=== PATIENT | female | born 1935 | race Caucasian/White ===

== ENCOUNTER → 2017-02-23 | Outpatient (CLI) | payer MEDICARE ==
[~2017-02-23] MED LIST: ALPR0.25 PO; AMLO5CAP3 PO; BYST10TA2 PO; CALC600T44 PO; CEPH500C PO; CETI10 PO; CLON0.1T PO; CLOTCRE TOPICAL; ENTO3CAP5 PO; EPIP0.3I IM; EVIS60TA PO; FURO40TA PO; LOSA50TA PO; LOTE40TA PO; MULTTAB67 PO; NORC5TAB PO; PRED10 PO; RANI150T PO; SERT-132 PO; STOOTAB PO; TRAM50TA PO; VALT1TAB PO; VITA10002 PO; VITATAB25 PO
[2017-02-23 11:27] LABS: AUTOMATED NEUTROPHIL # 4.7 TH/MM3 (1.8-7.7); BASOPHIL % 0.3 % (0.0-2.0); EOSINOPHIL # 0.2 TH/MM3 (0-0.4); EOSINOPHIL % 2.9 % (0.0-4.0); HEMATOCRIT 37.5 % (35.0-46.0); HEMO FLAGS DIFF FINAL; LYMPH % 15.6 % (9.0-44.0); MEAN CORPUSCULAR HEMOGLOBIN 32.4 PG (27.0-34.0); MEAN CORPUSCULAR HGB CONC 34.1 % (32.0-36.0); MONO % 7.5 % (0.0-8.0); NEUT % 73.7 % (16.0-70.0); PLATELET COUNT 231 TH/MM3 (150-450); RED BLOOD COUNT 3.95 MIL/MM3 (4.00-5.30); RED CELL DISTRIBUTION WIDTH 12.3 % (11.6-17.2); WHITE BLOOD COUNT 6.4 TH/MM3 (4.0-11.0)
--- NOTE | 2017-02-24 12:07 | EKG ---
Date Performed: 02/23/2017 Time Performed: 11:26:59 PTAGE: 81 years EKG: Sinus rhythm NORMAL ECG PREVIOUS TRACING : 05/21/2014 05.54 Compared to prior tracing no significant change DOCTOR: Charlie Mansfield Interpretating Date/Time 02/24/2017 12:04:58
== END ==
LOC: PHPRE 10:21
PROVIDERS: ATTEND Ophthalmology
DX: Z01.812 Encounter for preprocedural laboratory examination (principal); Z01.810 Encounter for preprocedural cardiovascular examination; H26.9 Unspecified cataract; I10 Essential (primary) hypertension
CPT/HCPCS: 85025; 93005

== ENCOUNTER 2017-02-28 08:32 | Emergency (ER) | payer MEDICARE ==
[~2017-02-28] VITALS: Ht 165.1 cm; Wt 61.0 kg
[~2017-02-28 08:32] MED LIST changes: -ALPR0.25 PO; -AMLO5CAP3 PO; -CEPH500C PO; -CLON0.1T PO; -CLOTCRE TOPICAL; -EPIP0.3I IM; -EVIS60TA PO; -FURO40TA PO; -LOTE40TA PO; -NORC5TAB PO; -PRED10 PO; -RANI150T PO; -STOOTAB PO; -TRAM50TA PO; -VALT1TAB PO
[2017-02-28 08:41] VITALS: BP 189/81; PULSE 68; RESP 16; TEMP 98.1; O2SAT 98
[2017-02-28] MEDS ORDERED: ALPR0.25 PO (08:51)
[2017-02-28] MEDS ORDERED: CLOTCRE TOPICAL (08:51)
[2017-02-28] MEDS ORDERED: PRED10 PO (08:51)
--- NOTE | 2017-02-28 08:53 | PD ---
HPI Chief Complaint: Pain: Acute or Chronic Time Seen by Provider: 08:36 Travel History International Travel<30 days: No Contact w/Intl Traveler<30days: No Traveled to known affect area: No History of Present Illness HPI The patient is a 81-year-old female who presents to the emergency department for right upper extremity pain. The pain starts over the volar aspect of the right wrist on the ulnar aspect, radiates into the fifth digit on the volar aspect as well as radiates to the medial aspect of the right elbow and occasionally the right axilla. The pain is elicited by certain movements, however, can occur at rest. She denies any significant weakness to the right upper extremity and denies any associated numbness or tingling. Symptoms are moderate, exacerbated by certain movements and positions, and there are no current alleviating factors. The patient does state she had an outpatient x- ray yesterday of the right wrist, does not know the results. She states the x- ray was performed at radiology [facility] in [place], [place]. She has an appointment next Thursday with a hand surgeon, Dr. Antonio. The patient was placed on prednisone 10 mg daily for 5 days by her primary physician. 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) Musculoskeletal: Yes (BACK PROBLEMS,HERNIATED DISC) Reproductive: Yes (ENDOMETRIOSIS, CYST IN BREAST) Respiratory: No Integumentary: Yes (HIVES) Immunizations Current: Yes (FLU SHOT-2007) Thyroid Disease: No Influenza Vaccination: No Menopausal: Yes Past Surgical History Abdominal Surgery: Yes Appendectomy: Yes Cholecystectomy: Yes Ear Surgery: No Endocrine Surgery: No Eye Surgery: No Genitourinary Surgery: No Gynecologic Surgery: Yes (,D&C-1976,L SALPINGO OOPHORECTOMY) Hysterectomy: No Neurologic Surgery: No Oral Surgery: No Other Surgery: Yes (LYSIS OF ADHESIONS.) Social History Alcohol Use: Yes (0-1/DAY) Tobacco Use: No (QUIT IN 1969) Substance Use: No Allergies-Medications (Allergen,Severity, Reaction): Coded Allergies: Benadryl (Verified Allergy, Severe, Hives, 02/28/17) Claritin (Verified Allergy, Severe, Hives, 02/28/17) Singulair (Verified Allergy, Severe, Hives, 02/28/17) Lashell (Verified Allergy, Intermediate, HIVES, 02/28/17) Uncoded Allergies: NO CT SCANS (Adverse Reaction, Mild, 05/27/12) Reported Meds & Prescriptions Reported Meds & Active Scripts Active Reported Prednisone 10 Mg Tab 10 Mg PO DAILY Clotrimazole-Betamethasone Topical (Betamethasone/Clotrimazole) 1-0.05% Cream 1 Applic TOPICAL BID Alprazolam 0.25 Mg Tab 0.25 Mg PO Q6H PRN Losartan (Losartan Potassium) 50 Mg Tab 50 Mg PO BID Entocort EC (Budesonide) 3 Mg Capdr 6 Mg PO DAILY Bystolic (Nebivolol) 10 Mg Tab 20 Mg PO DAILY Sertraline (Sertraline HCl) 50 Mg Tab 50 Mg PO DAILY Review of Systems Except as stated in HPI: all other systems reviewed are Neg General / Constitutional: No: Fever Gastrointestinal: No: Nausea Musculoskeletal: Positive: Pain, No: Edema Skin: No Rash Neurologic: No: Paresthesia, Sensory Disturbance Physical Exam Narrative GENERAL: Awake, alert, pleasant 81-year-old female who appears her stated age and is in no acute respiratory distress. SKIN: Focused skin assessment warm/dry. No stigmata of shingles on the right upper extremity. HEAD: Atraumatic. Normocephalic. EYES: No injection or drainage. NECK: Trachea midline. No JVD. MUSCULOSKELETAL: No obvious deformities. No clubbing. No cyanosis. No edema. Patient is able to fully abduct and extend the right upper extremity. Patient is able fully flex and extend the right elbow as well as supinate and pronate the right forearm. The patient is able fully flex and extend the right wrist. Intrinsic hand muscles are intact. Positive right radial pulse. Pain is elicited by palpation over the medial epicondyle, just distal to the upper condyle. NEUROLOGICAL: Awake and alert. No obvious cranial nerve deficits. Motor grossly within normal limits. Normal speech. Sensation is intact to the radial , median, and ulnar distribution of the right hand. PSYCHIATRIC: Appropriate mood and affect; insight and judgment normal. Data Data Last Documented VS Vital Signs Date Time Temp Pulse Resp B/P Pulse Ox O2 Delivery O2 Flow Rate FiO2 02/28/17 08:41 98.1 68 16 189/81 98 MDM Medical Decision Making Medical Screen Exam Complete: Yes Emergency Medical Condition: Yes Medical Record Reviewed: Yes Differential Diagnosis Differential diagnosis includes ulnar neuropathy, median nerve neuropathy, ulnar nerve entrapment, shingles, fracture, dislocation, contusion. Narrative Course The patient's physical examination is consistent with ulnar nerve neuropathy and possible entrapment at the elbow and/or wrist. The patient is a 31 been started on prednisone, I will provide Morton for pain management. I reviewed the patient's x-ray for right wrist that was performed at radiology [facility], it was unremarkable. The patient has an appointment next Thursday with a hand surgeon, Dr. Antonio. She is advised to apply ice and/or heat to the affected areas as needed, continue prednisone, and take Morton as directed. Diagnosis Primary Impression: Ulnar nerve neuropathy Qualified Code: G56.21 - Ulnar neuropathy of right upper extremity Patient Instructions: General Instructions Additional Instructions: Follow-up with a hand surgeon as scheduled. Continue prednisone as previously directed. Morton as needed for pain. Ice and/or heat to the affected areas. Return if symptoms worsen or progress. Med/Other Pt SpecificInfo: Prescription(s) given Scripts Hydrocodone-Acetaminophen (Morton)5-325 mg Tab1 Tab PO Q6H PRN (PAIN) #20 TAB Ref 0 Prov:Imer Florez MD 02/28/17 Disposition: 01 DISCHARGE HOME Condition: Stable Imer Florez MD Feb 28, 2017 08:52
[2017-02-28] MEDS ORDERED: NORC5TAB PO (09:08)
[2017-02-28] MEDS ORDERED: ACETAMINOPHEN/HYDROcodone 325 MG/5 MG TAB PO ONE (09:15)
== END 2017-02-28 09:49 | disposition home or self-care (01) ==
LOC: PHED 08:32
DX: G56.21 Lesion of ulnar nerve, right upper limb (principal); H91.8X1 Other specified hearing loss, right ear; H91.92 Unspecified hearing loss, left ear; Z87.39 Personal history of other diseases of the musculoskeletal system and connective tissue; Z86.59 Personal history of other mental and behavioral disorders; Z86.79 Personal history of other diseases of the circulatory system; Z87.19 Personal history of other diseases of the digestive system; Z87.448 Personal history of other diseases of urinary system; Z87.42 Personal history of other diseases of the female genital tract
CPT/HCPCS: 99283

== ENCOUNTER 2017-03-02 13:18 | Emergency (ER) | payer MEDICARE ==
[~2017-03-02] VITALS: Ht 165.1 cm; Wt 61.0 kg
[~2017-03-02 13:18] MED LIST changes: +ALPR0.25 PO; -CALC600T44 PO; -CETI10 PO; +CLOTCRE TOPICAL; -MULTTAB67 PO; +NORC5TAB PO; +PRED10 PO; -VITA10002 PO; -VITATAB25 PO
[2017-03-02 13:23] VITALS: BP 230/93; PULSE 88; RESP 18; TEMP 98.1; O2SAT 94
[2017-03-02 13:40] VITALS: BP 218/100
[2017-03-02] MEDS ORDERED: cloNIDine HCL 0.2 MG TAB PO ONE (14:15)
[2017-03-02] MEDS ORDERED: ONDANSETRON HCL 4 MG/2 ML VIAL IM ONE (14:15)
[2017-03-02] MEDS ORDERED: MORPHINE SULFATE 4 MG/ML INJ IM ONE (14:15)
--- NOTE | 2017-03-02 14:24 | PD ---
HPI Chief Complaint: Pain: Acute or Chronic Time Seen by Provider: 13:56 Travel History International Travel<30 days: No Contact w/Intl Traveler<30days: No Traveled to known affect area: No History of Present Illness HPI The patient was seen and examined in the presence of the nurse. This patient complains of pain in her right wrist. It radiates down into her right fourth and fifth fingers and sometimes up to the right elbow. It does not include the thumb or second or third finger. He was seen here 2 days ago and diagnosed with an ulnar neuropathy. She has an appointment with hand surgeon tomorrow at 1240. Severity is moderate. No alleviating factors. She tried narcotic pain pill without significant relief. Denies muscle weakness or sensory loss but has pain worsened with wrist movement. She is right handed and does a lot of typing. 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, WHITE COAT SYNDROM) Musculoskeletal: Yes (BACK PROBLEMS,HERNIATED DISC) Reproductive: Yes (ENDOMETRIOSIS, CYST IN BREAST) Respiratory: No Integumentary: Yes (HIVES) Immunizations Current: Yes (FLU SHOT-2008) Thyroid Disease: No Tetanus Vaccination: < 5 Years Influenza Vaccination: No Menopausal: Yes Past Surgical History Abdominal Surgery: Yes Appendectomy: Yes Cholecystectomy: Yes Ear Surgery: No Endocrine Surgery: No Eye Surgery: No Genitourinary Surgery: No Gynecologic Surgery: Yes (,D&C-1975,L SALPINGO OOPHORECTOMY) Hysterectomy: No Neurologic Surgery: No Oral Surgery: No Other Surgery: Yes (LYSIS OF ADHESIONS.) Social History Alcohol Use: Yes (0-1/DAY) Tobacco Use: No (QUIT IN 1969) Substance Use: No Allergies-Medications (Allergen,Severity, Reaction): Coded Allergies: Benadryl (Verified Allergy, Severe, Hives, 03/02/17) Claritin (Verified Allergy, Severe, Hives, 03/02/17) Singulair (Verified Allergy, Severe, Hives, 03/02/17) Lashell (Verified Allergy, Intermediate, HIVES, 03/02/17) Uncoded Allergies: NO CT SCANS (Adverse Reaction, Mild, 05/27/12) Reported Meds & Prescriptions Reported Meds & Active Scripts Active [place] (Hydrocodone-Acetaminophen) 5-325 mg Tab 1 Tab PO Q6H PRN Reported Prednisone 10 Mg Tab 10 Mg PO DAILY Clotrimazole-Betamethasone Topical (Betamethasone/Clotrimazole) 1-0.05% Cream 1 Applic TOPICAL BID Alprazolam 0.25 Mg Tab 0.25 Mg PO Q6H PRN Losartan (Losartan Potassium) 50 Mg Tab 50 Mg PO BID Entocort EC (Budesonide) 3 Mg Capdr 6 Mg PO DAILY Bystolic (Nebivolol) 10 Mg Tab 20 Mg PO DAILY Sertraline (Sertraline HCl) 50 Mg Tab 50 Mg PO DAILY Review of Systems General / Constitutional: No: Fever Eyes: No: Visual changes HENT: No: Headaches Cardiovascular: No: Chest Pain or Discomfort Respiratory: No: Shortness of Breath Gastrointestinal: No: Abdominal Pain Genitourinary: No: Dysuria Musculoskeletal: Positive: Pain Skin: No Rash Neurologic: No: Weakness Psychiatric: No: Depression Endocrine: No: Polydipsia Hematologic/Lymphatic: No: Easy Bruising Physical Exam Narrative Psych: Normal mood and affect. Normal insight and judgment. SKIN: Focused skin assessment reveals no rash or ulcers. Skin is warm and dry. Palpation shows no induration or nodules. Right arm: No swelling or redness or warmth. Good range of motion of joints. She has a lot of pain with flexion or extension of the wrist. Data Data Last Documented VS Vital Signs Date Time Temp Pulse Resp B/P Pulse Ox O2 Delivery O2 Flow Rate FiO2 03/02/17 13:58 03/02/17 13:23 98.1 88 18 94 Room Air Orders Ondansetron Inj (Zofran Inj) (03/02/17 14:15) Morphine Inj (Morphine Inj) (03/02/17 14:15) Clonidine (Catapres) (03/02/17 14:15) MDM Medical Decision Making Medical Screen Exam Complete: Yes Emergency Medical Condition: Yes Medical Record Reviewed: Yes Differential Diagnosis Carpal tunnel syndrome, ulnar neuropathy, epicondylitis Narrative Course I have reviewed the patient's electronic medical record. I reviewed her visit from 2 days ago After evaluation of this patient I concur with Dr. Florez's assessment. Seems to have an ulnar neuropathy on the right side. I recommended that she ice and elevate that right arm as well as use the Velcro wrist splint that she has at home and is not wearing now. I'm going to had a few tramadol to her other pain medication to use if needed I'm giving her injection of morphine and Zofran now for symptom relief. She will follow-up with hand surgery tomorrow Diagnosis Primary Impression: Ulnar nerve neuropathy Qualified Code: G56.21 - Ulnar neuropathy of right upper extremity Additional Instructions: Ice and elevate right arm and wear splint The patient was warned about potential sedation for the medications they will receive on prescription. Follow up with hand surgery tomorrow as scheduled Med/Other Pt SpecificInfo: Prescription(s) given Disposition: 01 DISCHARGE HOME Condition: Stable Seth Montes MD Mar 02, 2017 14:24
[2017-03-02 14:35] VITALS: BP 219/93
[2017-03-02] MEDS ORDERED: TRAM50TA PO (15:05)
[2017-03-02 15:12] VITALS: BP 212/103
[2017-03-02] MEDS ORDERED: NIFEdipine 10 MG CAP PO ONE (15:15)
== END 2017-03-02 15:25 | disposition home or self-care (01) ==
LOC: PHED 13:18
DX: G56.21 Lesion of ulnar nerve, right upper limb (principal); I10 Essential (primary) hypertension; H91.93 Unspecified hearing loss, bilateral; Z87.39 Personal history of other diseases of the musculoskeletal system and connective tissue; Z86.59 Personal history of other mental and behavioral disorders; Z86.79 Personal history of other diseases of the circulatory system; Z87.19 Personal history of other diseases of the digestive system; Z87.448 Personal history of other diseases of urinary system
CPT/HCPCS: 96372; 99284; J2270; J2405

== ENCOUNTER 2017-03-06 04:21 | Emergency (ER) | payer MEDICARE ==
[~2017-03-06] VITALS: Ht 165.1 cm; Wt 59.6 kg
[~2017-03-06 04:21] MED LIST changes: +TRAM50TA PO
[2017-03-06 04:28] VITALS: BP_SYST 182; BP_DIAS 22; BP_DIAS 72; PULSE 75; RESP 18; TEMP 97.6; O2SAT 96
[2017-03-06] MEDS ORDERED: VALT1TAB PO (05:08)
[2017-03-06] MEDS ORDERED: CEPH500C PO (05:08)
[2017-03-06] MEDS ORDERED: STOOTAB PO (05:08)
[2017-03-06] MEDS ORDERED: PRED10 PO (05:08)
--- NOTE | 2017-03-06 05:25 | PD ---
HPI Chief Complaint: Skin Problem Time Seen by Provider: 05:13 Travel History International Travel<30 days: No Contact w/Intl Traveler<30days: No Traveled to known affect area: No History of Present Illness HPI 81-year-old female presents to the emergency department by private transportation in the care of her spouse for evaluation of medications recently prescribed for management of right upper extremity pain initially managed as a possible ulnar nerve neuropathy but since Thursday 2 days ago at the director of field sales office was identified to have shingles. Patient has been seen by her primary care regarding her right upper extremity pain she was seen twice in the emergency department on and for complaint of right upper extremity pain and then on Thursday of this week by her hand surgeon who sent her immediately to the director of field sales where she was assessed diagnosed with shingles and a biopsy was performed. Patient has an appointment with her director of field sales this morning at 11 AM. Patient during her management of this right upper extremity pain prior to onset of dermatologic manifestations with vesicular rash had been placed on a five-day course of prednisone 10 mg by her primary care and subsequently placed on hydrocodone to the emergency department and continued on the pain medication was seen by the director of field sales on Thursday and restarted on prednisone 10 mg daily and has had 210 mg doses once on Thursday and once on but not yet on Thursday and has been taking hydrocodone 5/ 325 every 6 hours for pain management as well has has been started on Valtrex and Keflex. Patient has had no fever or chills. Patient states since Thursday and since restarting steroid therapy, prednisone 10 mg, she has noted some intermittent brief visual or auditory hallucinations where she thinks she sees birds or hears birds; patient denies these symptoms at this time. Patient presents at this time concerned that she may be having an adverse reaction to one of her medications. Patient does not report headache, confusion, double vision or loss of vision, change in speech, facial droop, balance disturbance or ataxia, upper or lower extremity numbness, tingling, or weakness; denies fever or chills; no mouth sores or lesions; no chest pain, palpitations, or shortness of breath, also no nausea or vomiting, patient has a history of chronic colitis and typically has some form of diarrhea but since starting hydrocodone has noted some mild constipation and did take Senokot yesterday; no report of dysuria, frequency, urgency, or decreased urine output; and no report of saddle anesthesia. Patient rates her current pain improved at 7/10 in intensity; prior to this visit pain has been reported as 10+ over 10 in intensity. Patient denies any visual disturbance or auditory disturbance at this time. Patient reports that she has had adverse reaction to prednisone in the past but she is not certain what kind of adverse reaction she has had but lists this medication as an allergy or medication she has had an intolerance to reportedly. Patient also has history of idiopathic urticaria and has multiple urticarial reactions to various medications but no urticaria, angioedema, and anaphylaxis to any of her current medications. PFS Past Medical History Narrative Medical Anxiety hypertension and panic attacks paroxysmal atrial tachycardia arthritis right ear deafness colitis chronic kidney disease chronic back pain with herniated disc endometriosis idiopathic urticaria D&C appendectomy salpingo- oophorectomy adhesive lysis no tobacco use no alcohol use Hx Anticoagulant Therapy: No Arthritis: Yes Anxiety: Yes (PANIC ATTACKS - HYPERVENTILATION) Heart Rhythm Problems: Yes (HX PAT) Cancer: No Cardiovascular Problems: Yes (HTN) Chemotherapy: No Cerebrovascular Accident: No Diabetes: No Diminished Hearing: Yes (DEAF IN RT EAR,RINCON IN LT EAR, HEARING AID IN.) Gastrointestinal Disorders: Yes (COLITIS) Glaucoma: No Genitourinary: Yes (KIDNEY DISEASE) Hepatitis: No Hiatal Hernia: No Hypertension: Yes Musculoskeletal: Yes (BACK PROBLEMS,HERNIATED DISC) Reproductive: Yes (ENDOMETRIOSIS, CYST IN BREAST) Respiratory: No Integumentary: Yes (HIVES) Immunizations Current: Yes (FLU SHOT-2007) Thyroid Disease: No Menopausal: Yes Past Surgical History Abdominal Surgery: Yes Appendectomy: Yes Cholecystectomy: Yes Ear Surgery: No Endocrine Surgery: No Eye Surgery: No Genitourinary Surgery: No Gynecologic Surgery: Yes (,D&C-1975,L SALPINGO OOPHORECTOMY) Hysterectomy: No Neurologic Surgery: No Oral Surgery: No Other Surgery: Yes (LYSIS OF ADHESIONS.) Social History Alcohol Use: Yes (0-1/DAY) Tobacco Use: No (QUIT IN 1969) Substance Use: No Allergies-Medications (Allergen,Severity, Reaction): Coded Allergies: Benadryl (Verified Allergy, Severe, Hives, 03/06/17) Claritin (Verified Allergy, Severe, Hives, 03/06/17) Hydroxyzine (Verified Allergy, Severe, 03/06/17) Singulair (Verified Allergy, Severe, Hives, 03/06/17) Lashell (Verified Allergy, Intermediate, HIVES, 03/06/17) Uncoded Allergies: NO CT SCANS (Adverse Reaction, Mild, 05/27/12) Reported Meds & Prescriptions Reported Meds & Active Scripts Active [place] (Hydrocodone-Acetaminophen) 5-325 mg Tab 1 Tab PO Q6H PRN Reported Cephalexin 500 Mg Cap 500 Mg PO TID Stool Softener Laxative 8.6-50 mg (Sennosides-Docusate Sodium) 1 Tab Tab 1 Tab PO DAILY Valtrex (Valacyclovir HCl) 1 Gm Tab 1,000 Mg PO TID Prednisone 10 Mg Tab 10 Mg PO DAILY Clotrimazole-Betamethasone Topical (Betamethasone/Clotrimazole) 1-0.05% Cream 1 Applic TOPICAL BID Alprazolam 0.25 Mg Tab 0.25 Mg PO Q6H PRN Losartan (Losartan Potassium) 50 Mg Tab 50 Mg PO BID Entocort EC (Budesonide) 3 Mg Capdr 6 Mg PO DAILY Bystolic (Nebivolol) 10 Mg Tab 20 Mg PO DAILY Sertraline (Sertraline HCl) 50 Mg Tab 50 Mg PO DAILY Review of Systems Except as stated in HPI: all other systems reviewed are Neg General / Constitutional: No: Fever, Chills Eyes: Positive: Visual changes (intermittent visual hallucinations), No: Diploplia, Blurred Vision, Photophobia HENT: No: Headaches, Vertigo, Lightheadedness, Sore Throat, Congestion, Nosebleed, Other (no mouth ulcerations or stomatitis) Cardiovascular: No: Chest Pain or Discomfort, Palpitations, Diaphoresis, Dyspnea on exertion Respiratory: No: Cough, Shortness of Breath, Wheezing Gastrointestinal: Positive: Constipation, No: Nausea, Vomiting, Diarrhea, Abdominal Pain Genitourinary: No: Decreased Urinary Output Musculoskeletal: Positive: Pain (right upper extremity), No: Myalgias, Arthralgias Skin: Positive Rash, Positive Lesions (shingles right upper extremity) Neurologic: No: Weakness, Dizziness, Syncope, Focal Abnormalities, Coordination Problem, Headache Psychiatric: Positive: Anxiety Hematologic/Lymphatic: No: Easy Bruising Physical Exam Narrative GENERAL: Well-developed well-nourished female in no acute distress no respiratory distress; GCS 15 SKIN: Warm and dry. Vesicular rash to the right upper extremity involving the hand primarily in the ulnar nerve distribution HEAD: Atraumatic. Normocephalic. EYES: Pupils equal and round. No scleral icterus. No injection or drainage. ENT: No nasal bleeding or discharge. Mucous membranes pink and moist. NECK: Trachea midline. No JVD. CARDIOVASCULAR: Regular rate and rhythm. RESPIRATORY: No accessory muscle use. Clear to auscultation. Breath sounds equal bilaterally. GASTROINTESTINAL: Abdomen soft, non-tender, nondistended. Hepatic and splenic margins not palpable. MUSCULOSKELETAL: Extremities without clubbing, cyanosis, or edema. No obvious deformities. NEUROLOGICAL: Awake and alert. No obvious cranial nerve deficits. Motor grossly within normal limits. Five out of 5 muscle strength in the arms and legs. No limb ataxia. No pronator drift. Sensory exam intact. DTRs 2+ and equal bilaterally. Normal speech. PSYCHIATRIC: Appropriate mood and affect; insight and judgment normal. Data Data Last Documented VS Vital Signs Date Time Temp Pulse Resp B/P Pulse Ox O2 Delivery O2 Flow Rate FiO2 03/06/17 04:28 97.6 75 18 182/72 96 MDM Medical Decision Making Medical Screen Exam Complete: Yes Emergency Medical Condition: Yes Medical Record Reviewed: Yes Differential Diagnosis Adverse medication reaction, post/herpetic neuralgia, shingles, uncontrolled hypertension Narrative Course Patient by physical exam remarkable for unilateral vesicular rash of the right upper extremity extending onto the right upper back. Review of multiple medications discussed in detail with patient. No auditory or visual hallucinations in the emergency department. Patient is noted to have elevated blood pressure and administered clonidine. Patient already is scheduled to see her director of field sales 03/06/17 at 11 AM. Patient most likely with adverse medication reaction due to combination of multiple medications. Medications modified slightly as far as dosing and frequency. Patient spouse report understanding of changes and discharge instructions include discussed changes. Patient noted to be hypertensive and given a one-time dose of clonidine 0.1 mg by mouth Diagnosis Primary Impression: Shingles Qualified Code: B02.8 - Herpes zoster with complication Additional Impressions: Adverse drug reaction Qualified Code: T88.7XXA - Adverse drug reaction, initial encounter HTN (hypertension) Qualified Code: I15.9 - Secondary hypertension Referrals: [facility] 1 day Keep scheduled appointment Patient Instructions: General Instructions Additional Instructions: May change hydrocodone 5/325 one by mouth every 6 hours as needed for pain and as tolerated to hydrocodone one half dose of 5/325 (2.5/162.5) by mouth every 4 hours as needed for pain as tolerated Hold AM dose of prednisone 10 mg until dermatology appointment as scheduled; decrease dose to prednisone 5 mg daily x 2 days, then prednisone 2.5 mg daily x 2 days Take as needed clonidine 0.1 mg q12 hours as needed for blood pressure > 160/90 May use MiraLax per package directions as needed for narcotic induced constipation along with increased fluid hydration Continue chronic medications as chronically prescribed by your primary care provider continue Valtrex and Keflex as prescribed by your director of field sales May use zantac 150 twice daily as needed for allergy related symptoms --- itching May use zyrtec 10 mg once daily as needed for allergy related symptoms --- itching Med/Other Pt SpecificInfo: Prescription(s) given, Existing Med Changed Scripts Clonidine 0.1 Mg Tab0.1 Mg PO Q12HR PRN (SBP>160, DBP>90) #4 TAB Ref 0 Prov:Lizzy Graves MD 03/06/17 Disposition: DISCHARGE HOME Condition: Stable Lizzy Graves MD Mar 06, 2017 05:25
[2017-03-06 05:47] VITALS: BP 201/86
[2017-03-06] MEDS ORDERED: CLON0.1T PO (05:55)
[2017-03-06] MEDS ORDERED: cloNIDine HCL 0.1 MG TAB PO ONE (06:00)
== END 2017-03-06 06:17 | disposition home or self-care (01) ==
LOC: PHED 04:21
DX: B02.8 Zoster with other complications (principal); T88.7XXA Unspecified adverse effect of drug or medicament, initial encounter; I15.9 Secondary hypertension, unspecified; R44.1 Visual hallucinations; R44.0 Auditory hallucinations; H91.93 Unspecified hearing loss, bilateral; Z79.899 Other long term (current) drug therapy; Z86.59 Personal history of other mental and behavioral disorders; Z86.79 Personal history of other diseases of the circulatory system; Z87.39 Personal history of other diseases of the musculoskeletal system and connective tissue; Z87.42 Personal history of other diseases of the female genital tract; Z87.2 Personal history of diseases of the skin and subcutaneous tissue; Z87.19 Personal history of other diseases of the digestive system
CPT/HCPCS: 99283

== ENCOUNTER 2017-03-09 03:36 | Emergency (ER) | payer MEDICARE ==
[~2017-03-09] VITALS: Ht 165.1 cm; Wt 58.0 kg
[~2017-03-09 03:36] MED LIST changes: +CEPH500C PO; +CLON0.1T PO; +STOOTAB PO; -TRAM50TA PO; +VALT1TAB PO
[2017-03-09 03:40] VITALS: BP 202/88; PULSE 89; RESP 18; TEMP 97.9; O2SAT 99
[2017-03-09 03:45] VITALS: O2SAT 98
[2017-03-09] MEDS ORDERED: ASPIRIN 81 MG CHEW TAB PO ONE (04:00)
[2017-03-09] MEDS ORDERED: SODIUM CHLORIDE 0.9% FLUSH 10 ML FLUSH IVF PRN (04:00)
[2017-03-09] MEDS ORDERED: cloNIDine HCL 0.2 MG TAB PO ONE (04:00)
--- NOTE | 2017-03-09 04:09 | PD ---
HPI Chief Complaint: Cardiac Complaint Time Seen by Provider: 03:55 Travel History International Travel<30 days: No Contact w/Intl Traveler<30days: No Traveled to known affect area: No History of Present Illness HPI 81-year-old female presents to the emergency department by EMS transportation from home for evaluation of palpitations and hypertension. Patient has history of hypertension and panic attacks. Patient is prescribed by systolic was certain and alprazolam. Were recently patient has been placed on prednisone and Valtrex for diagnosis of shingles. Patient reports the prednisone has been discontinued. Patient did have her shingles diagnosis confirmed by technical communicator and biopsy. Patient states shingles outbreak is much improved. Patient has had multiple medications and multiple adjustments of multiple medications over the past 2 weeks. Patient denies any chest pain or shortness of breath. Patient denies any referred neck jaw back shoulder or left arm pain. Patient continues to have right arm pain associated with component of postherpetic neuralgia. Patient denies any upper extremity or lower extremity numbness tingling or weakness or ataxia of gait. Patient's had no fever or chills. The patient has had no productive cough denies pleuritic pain. Patient denies any palpitations at this time. Patient does have prior history of paroxysmal atrial tachycardia. Patient states that her blood pressure has been poorly controlled over the past 2 weeks and frequently has been quite elevated. Patient does not report any headache thunderclap headache worst headache of her life does not report any change in mentation visual disturbance blurred vision double vision loss of vision or loss of visual james patient does not report any facial weakness and has had no change in her speech. Patient denies any neck pain. Patient's had no balance disturbance. Patient feels well at this time although is aware that her blood pressure is elevated. Patient continues to have 10 over 10 right upper extremity pain consistent with her shingles outbreak; otherwise pain/discomfort is 0/10 in intensity.. PFSH Past Medical History Narrative Medical Anxiety hypertension and panic attacks paroxysmal atrial tachycardia arthritis right ear deafness colitis shingles chronic kidney disease chronic pain syndrome herniated disc of the lumbar spine endometriosis idiopathic urticaria D &C appendectomy salpingo-oophorectomy lysis of adhesions; no alcohol use no tobacco use; nursing notes reviewed Hx Anticoagulant Therapy: No Arthritis: Yes Anxiety: Yes (PANIC ATTACKS - HYPERVENTILATION) Heart Rhythm Problems: Yes (HX PALPATATIONS) Cancer: No Cardiovascular Problems: Yes (HTN) Chemotherapy: No Cerebrovascular Accident: No Diabetes: No Diminished Hearing: Yes (DEAF IN RT EAR,[place] IN LT EAR, HEARING AID IN.) Gastrointestinal Disorders: Yes (COLITIS) Glaucoma: No Genitourinary: Yes (KIDNEY DISEASE) Hepatitis: No Hiatal Hernia: No Hypertension: Yes Musculoskeletal: Yes (BACK PROBLEMS,HERNIATED DISC) Reproductive: Yes (ENDOMETRIOSIS, CYST IN BREAST) Respiratory: No Integumentary: Yes (HIVES) Immunizations Current: Yes (FLU SHOT-2007) Thyroid Disease: No Menopausal: Yes Past Surgical History Abdominal Surgery: Yes Appendectomy: Yes Cholecystectomy: Yes Ear Surgery: No Endocrine Surgery: No Eye Surgery: No Genitourinary Surgery: No Gynecologic Surgery: Yes (,D&C-1975,L SALPINGO OOPHORECTOMY) Hysterectomy: No Neurologic Surgery: No Oral Surgery: No Other Surgery: Yes (LYSIS OF ADHESIONS.) Social History Alcohol Use: Yes (0-1/DAY) Tobacco Use: No (QUIT IN 1969) Substance Use: No Allergies-Medications (Allergen,Severity, Reaction): Coded Allergies: Benadryl (Verified Allergy, Severe, Hives, 03/06/17) Claritin (Verified Allergy, Severe, Hives, 03/06/17) Hydroxyzine (Verified Allergy, Severe, 03/06/17) Singulair (Verified Allergy, Severe, Hives, 03/06/17) Lashell (Verified Allergy, Intermediate, HIVES, 03/06/17) Uncoded Allergies: NO CT SCANS (Adverse Reaction, Mild, 05/27/12) Reported Meds & Prescriptions Reported Meds & Active Scripts Active Clonidine (Clonidine HCl) 0.1 Mg Tab 0.1 Mg PO Q12HR PRN Wrights (Hydrocodone-Acetaminophen) 5-325 mg Tab 1 Tab PO Q6H PRN Reported Cephalexin 500 Mg Cap 500 Mg PO TID Stool Softener Laxative 8.6-50 mg (Sennosides-Docusate Sodium) 1 Tab Tab 1 Tab PO DAILY Valtrex (Valacyclovir HCl) 1 Gm Tab 1,000 Mg PO TID Prednisone 10 Mg Tab 10 Mg PO DAILY Clotrimazole-Betamethasone Topical (Betamethasone/Clotrimazole) 1-0.05% Cream 1 Applic TOPICAL BID Alprazolam 0.25 Mg Tab 0.25 Mg PO Q6H PRN Losartan (Losartan Potassium) 50 Mg Tab 50 Mg PO BID Entocort EC (Budesonide) 3 Mg Capdr 6 Mg PO DAILY Bystolic (Nebivolol) 10 Mg Tab 20 Mg PO DAILY Sertraline (Sertraline HCl) 50 Mg Tab 50 Mg PO DAILY Review of Systems Except as stated in HPI: all other systems reviewed are Neg General / Constitutional: No: Fever, Chills Eyes: No: Diploplia, Blurred Vision, Photophobia HENT: No: Headaches, Vertigo, Lightheadedness, Neck Pain Cardiovascular: Positive: Palpitations, No: Chest Pain or Discomfort, Diaphoresis, Syncope, Dyspnea on exertion Respiratory: No: Cough, Shortness of Breath, Wheezing Gastrointestinal: No: Nausea, Vomiting Genitourinary: No: Urgency, Frequency, Dysuria Musculoskeletal: Positive: Pain (right arm), No: Myalgias, Arthralgias Skin: Positive Rash (right arm) Neurologic: No: Weakness, Dizziness, Syncope, Focal Abnormalities, Coordination Problem Psychiatric: No: Anxiety Endocrine: No: Heat Intolerance Hematologic/Lymphatic: No: Easy Bruising Physical Exam Narrative GENERAL: Well-developed well-nourished female in no acute distress no respiratory distress; GCS 15 SKIN: Warm and dry. HEAD: Normocephalic. EYES: No scleral icterus. No injection or drainage. NECK: Supple, trachea midline. No JVD or lymphadenopathy. CARDIOVASCULAR: Regular rate and rhythm without murmurs, gallops, or rubs. RESPIRATORY: Breath sounds equal bilaterally. No accessory muscle use. GASTROINTESTINAL: Abdomen soft, non-tender, nondistended. MUSCULOSKELETAL: No cyanosis, or edema. Attention right lower extremity resolving herpetic lesions. Bilateral radial and dorsalis pedis pulses 2+ to palpation. BACK: Nontender without obvious deformity. No CVA tenderness. Data Data Last Documented VS Vital Signs Date Time Temp Pulse Resp B/P Pulse Ox O2 Delivery O2 Flow Rate FiO2 03/09/17 05:00 77 159/79 98 Room Air 03/09/17 04:13 16 03/09/17 03:40 97.9 Orders Electrocardiogram (03/09/17 03:55) Basic Metabolic Panel (Bmp) (03/09/17 03:55) Ckmb (Isoenzyme) Profile (03/09/17 03:55) Complete Blood Count With Diff (03/09/17 03:55) Magnesium (Mg) (03/09/17 03:55) Prothrombin Time / Inr (Pt) (03/09/17 03:55) Act Partial Throm Time (Ptt) (03/09/17 03:55) Troponin I (03/09/17 03:55) Ecg Monitoring (03/09/17 03:55) Bilateral Bp Monitoring (03/09/17 03:55) Iv Access Insert/Monitor (03/09/17 03:55) Oximetry (03/09/17 03:55) Oxygen Administration (03/09/17 03:55) Aspirin Chew (Aspirin Chew) (03/09/17 04:00) Sodium Chloride 0.9% Flush (Ns Flush) (03/09/17 04:00) Clonidine (Catapres) (03/09/17 04:00) Acetamin-Hydrocod 325-5 Mg (Wrights 5-325 (03/09/17 05:15) Ondansetron Inj (Zofran Inj) (03/09/17 05:15) Chest, Single Ap (03/09/17 ) Labs Laboratory Tests Test 03/09/17 04:00 White Blood Count 7.5 TH/MM3 Red Blood Count 3.56 MIL/MM3 Hemoglobin 11.7 GM/DL Hematocrit 34.4 % Mean Corpuscular Volume 96.7 FL Mean Corpuscular Hemoglobin 32.9 PG Mean Corpuscular Hemoglobin 34.0 % Concent Red Cell Distribution Width 13.1 % Platelet Count 217 TH/MM3 Mean Platelet Volume 8.4 FL Neutrophils (%) (Auto) 60.3 % Lymphocytes (%) (Auto) 25.6 % Monocytes (%) (Auto) 10.7 % Eosinophils (%) (Auto) 2.6 % Basophils (%) (Auto) 0.8 % Neutrophils # (Auto) 4.5 TH/MM3 Lymphocytes # (Auto) 1.9 TH/MM3 Monocytes # (Auto) 0.8 TH/MM3 Eosinophils # (Auto) 0.2 TH/MM3 Basophils # (Auto) 0.1 TH/MM3 CBC Comment DIFF FINAL Differential Comment Prothrombin Time 11.9 SEC Prothromb Time International 1.1 RATIO Ratio Activated Partial 23.3 SEC Thromboplast Time Sodium Level 139 MEQ/L Potassium Level 4.1 MEQ/L Chloride Level 110 MEQ/L Carbon Dioxide Level 20.1 MEQ/L Anion Gap 9 MEQ/L Blood Urea Nitrogen 31 MG/DL Creatinine 1.50 MG/DL Estimat Glomerular Filtration 33 ML/MIN Rate Random Glucose 111 MG/DL Calcium Level 9.2 MG/DL Magnesium Level 1.7 MG/DL Total Creatine Kinase 59 U/L Troponin I LESS THAN 0.02 NG/ML MDM Medical Decision Making Medical Screen Exam Complete: Yes Emergency Medical Condition: Yes Medical Record Reviewed: Yes Interpretation(s) EKG normal sinus rhythm rate [address] elevation or injury pattern change or ectopy cxr: Elevated left hemidiaphragm no lobar infiltrate or effusion CK: 59, not elevated; troponin I less than 0.02, not elevated Vital Signs Date Time Temp Pulse Resp B/P Pulse Ox O2 Delivery O2 Flow Rate FiO2 03/09/17 05:00 77 159/79 98 Room Air 03/09/17 04:13 78 16 98 Room Air 03/09/17 04:13 77 16 181/87 98 Room Air 03/09/17 04:13 78 03/09/17 03:45 98 Room Air 03/09/17 03:45 98 Room Air 03/09/17 03:40 97.9 89 18 202/88 99 CBC & BMP Diagram 03/09/17 04:00 Vital Signs Date Time Temp Pulse Resp B/P Pulse Ox O2 Delivery O2 Flow Rate FiO2 03/09/17 05:00 77 159/79 98 Room Air 03/09/17 04:13 78 16 98 Room Air 03/09/17 04:13 77 16 181/87 98 Room Air 03/09/17 04:13 78 03/09/17 03:45 98 Room Air 03/09/17 03:45 98 Room Air 03/09/17 03:40 97.9 89 18 202/88 99 Differential Diagnosis Palpitations, arrhythmia, electrolyte disturbance, thyroid dysfunction, uncontrolled hypertension, ACS, adverse medication reaction Narrative Course Patient is on cardiac tech in sinus rhythm EKG performed which reveals no acute injury pattern IV access obtained patient specimens collected and sent for resulting patient noted to be hypertensive given clonidine 0.2 mg by mouth times one dose Patient's blood pressure with good response to clonidine complains of right arm pain secondary to shingles and postherpetic neuralgia symptoms as shingles rash is resolving last dose of pain medication was 10 PM patient given Lortab 5/325 by mouth and Zofran 4 mg IV Lab values resulted patient with persistent renal insufficiency cardiac enzymes are found to be in normal range and not elevated CBC is automated differential grossly within normal limits It is 5:50 AM patient is clinically improved and stable for outpatient management Diagnosis Primary Impression: HTN (hypertension) Qualified Code: I10 - Essential hypertension Additional Impressions: Adverse drug reaction Qualified Code: T88.7XXD - Adverse effect of drug, subsequent encounter Shingles Qualified Code: B02.8 - Herpes zoster with complication Referrals: Primary Care Physician 1 day Patient Instructions: Narcotic given in the ED, General Instructions Additional Instructions: Follow-up with your primary care provider regarding management of blood pressure , return to the emergency department for any concerns or change in condition, continue current medications as presently prescribed Disposition: 01 DISCHARGE HOME Condition: Stable Lizzy Graves MD Mar 09, 2017 04:09 Lizzy Graves MD Mar 09, 2017 04:09
[2017-03-09 04:13] VITALS: BP 181/87; PULSE 77; PULSE 78; RESP 16; O2SAT 98
[2017-03-09 04:43] LABS: AUTOMATED NEUTROPHIL # 4.5 TH/MM3 (1.8-7.7); BASOPHIL # 0.1 TH/MM3 (0-0.2); BASOPHIL % 0.8 % (0.0-2.0); EOSINOPHIL # 0.2 TH/MM3 (0-0.4); EOSINOPHIL % 2.6 % (0.0-4.0); HEMATOCRIT 34.4 % (35.0-46.0); HEMO FLAGS DIFF FINAL; LYMPH % 25.6 % (9.0-44.0); LYMPHOCYTE # 1.9 TH/MM3 (1.0-4.8); MEAN CELL VOLUME 96.7 FL (80.0-100.0); MEAN CORPUSCULAR HEMOGLOBIN 32.9 PG (27.0-34.0); MONO % 10.7 % (0.0-8.0); NEUT % 60.3 % (16.0-70.0); PLATELET COUNT 217 TH/MM3 (150-450); RED BLOOD COUNT 3.56 MIL/MM3 (4.00-5.30); RED CELL DISTRIBUTION WIDTH 13.1 % (11.6-17.2); WHITE BLOOD COUNT 7.5 TH/MM3 (4.0-11.0)
[2017-03-09 04:55] LABS: CHLORIDE 110 MEQ/L (98-107); POTASSIUM 4.1 MEQ/L (3.5-5.1); SODIUM (NA) 139 MEQ/L (136-145)
[2017-03-09 04:58] LABS: ANION GAP 9 MEQ/L (5-15); APTT (PATIENT) 23.3 SEC (24.3-30.1); BICARBONATE 20.1 MEQ/L (21.0-32.0); BLOOD UREA NITROGEN 31 MG/DL (7-18); INTERNATIONAL NORMALIZED RATIO 1.1 RATIO; MAGNESIUM 1.7 MG/DL (1.5-2.5); PROTHROMBIN TIME - PATIENT 11.9 SEC (9.8-11.6)
[2017-03-09 05:00] VITALS: BP 159/79; PULSE 77; O2SAT 98
[2017-03-09 05:01] LABS: GLOMERULAR FILTRATION RATE 33 ML/MIN (>89)
[2017-03-09] MEDS ORDERED: ONDANSETRON HCL 4 MG/2 ML VIAL IV PUSH ONE (05:15)
[2017-03-09] MEDS ORDERED: ACETAMINOPHEN/HYDROcodone 325 MG/5 MG TAB PO ONE (05:15)
[2017-03-09 05:41] LABS: CREATINE KINASE 59 U/L (26-192)
[2017-03-09 05:45] VITALS: BP 158/74; PULSE 85; RESP 16; O2SAT 99
--- NOTE | 2017-03-09 06:47 | RADRPT ---
EXAM DATE/TIME: 03/09/2017 06:07 [facility] COMPARISON: No previous studies available for comparison. INDICATIONS : Chest pain. MEDICAL HISTORY : Hypertension. SURGICAL HISTORY : None. ENCOUNTER: Initial ACUITY: 1 day PAIN SCORE: 3/10 LOCATION: Bilateral chest FINDINGS: A single view of the chest demonstrates the lungs to be symmetrically aerated without evidence of mas s, infiltrate or effusion. The cardiomediastinal contours are unremarkable. Osseous structures are intact. Aortic calcification. CONCLUSION: No acute disease. Johnny Hart MD on March 09, 2017 at 6:46 Board Certified Radiologist. This report was verified electronically.
[2017-03-09 07:11] VITALS: BP 101/61
--- NOTE | 2017-03-09 16:39 | EKG ---
Date Performed: 03/09/2017 Time Performed: 04:06:11 PTAGE: 81 years EKG: Sinus rhythm NORMAL ECG PREVIOUS TRACING : 02/23/2017 11.26 Since previous tracing, no significant change noted DOCTOR: Robert Burkett Interpretating Date/Time 03/09/2017 16:38:34
== END 2017-03-09 07:13 | disposition home or self-care (01) ==
LOC: PHED 03:36
DX: I12.9 Hypertensive chronic kidney disease with stage 1 through stage 4 chronic kidney disease, or unspecified chronic kidney disease (principal); N18.9 Chronic kidney disease, unspecified; B02.8 Zoster with other complications; Z87.891 Personal history of nicotine dependence
CPT/HCPCS: 71010; 80048; 82550; 83735; 84484; 85025; 85610; 85730; 93005; 96374; 99285; J2405

== ENCOUNTER 2017-04-17 12:10 | Emergency (ER) | payer MEDICARE ==
[~2017-04-17] VITALS: Ht 165.1 cm; Wt 58.0 kg
[2017-04-17 12:10] VITALS: BP 165/59; PULSE 100; RESP 18; TEMP 99.8; O2SAT 94
[2017-04-17] MEDS ORDERED: GABA100C4 PO ×2 (12:43)
[2017-04-17] MEDS ORDERED: CARB100C PO ×2 (12:43)
--- NOTE | 2017-04-17 13:07 | PD ---
HPI Chief Complaint: Fall Time Seen by Provider: 12:59 Travel History International Travel<30 days: No Contact w/Intl Traveler<30days: No Traveled to known affect area: No History of Present Illness HPI This 81-year-old female was found on the floor by her . She was awake at that time but she told him that she thought she had passed out. She developed some questionable ulnar neuropathy February 28 which may have been related to shingles which she developed a few days later. She was treated for that. She has been having pain in the arm and has been seeing Dr. Trejo. He recently increased her Tegretol 2 tablets to 3 tablets a day. She has no history of heart disease and does not all having previous syncopal episodes. She denies chest pain or shortness of breath. She didn hit her head on the floor and sustained a laceration PFS Past Medical History Hx Anticoagulant Therapy: No Arthritis: Yes Anxiety: Yes (PANIC ATTACKS - HYPERVENTILATION) Heart Rhythm Problems: Yes (HX PALPATATIONS) Cancer: No Cardiovascular Problems: Yes (HTN) Chemotherapy: No Cerebrovascular Accident: No Diabetes: No Diminished Hearing: Yes ([place] IN RT EAR,[place] IN LT EAR, HEARING AID IN.) Gastrointestinal Disorders: Yes (COLITIS) Glaucoma: No Genitourinary: Yes (KIDNEY DISEASE) Hepatitis: No Hiatal Hernia: No Hypertension: Yes Medical other: Yes (DEAF TO RIGHT EAR) Musculoskeletal: Yes (BACK PROBLEMS,HERNIATED DISC) Psychiatric: Yes (DEPRESSION) Reproductive: Yes (ENDOMETRIOSIS, CYST IN BREAST) Respiratory: No Integumentary: Yes (HIVES) Immunizations Current: Yes (FLU SHOT-2007) Thyroid Disease: No ?: Not Menopausal: Yes Past Surgical History Abdominal Surgery: Yes Appendectomy: Yes Cholecystectomy: Yes Ear Surgery: No Endocrine Surgery: No Eye Surgery: No Genitourinary Surgery: No Gynecologic Surgery: Yes (,D&C-1975,L SALPINGO OOPHORECTOMY) Hysterectomy: No Joint Replacement: No Neurologic Surgery: No Oral Surgery: No Other Surgery: Yes (LYSIS OF ADHESIONS.) Social History Alcohol Use: Yes (0-1/DAY) Tobacco Use: No (QUIT IN 1969) Substance Use: No Allergies-Medications (Allergen,Severity, Reaction): Coded Allergies: diphenhydramine (Unverified Allergy, Severe, Hives, 04/17/17) hydroxyzine (Unverified Allergy, Severe, 04/17/17) loratadine (Unverified Allergy, Severe, Hives, 04/17/17) montelukast (Unverified Allergy, Severe, Hives, 04/17/17) fexofenadine (Unverified Allergy, Intermediate, HIVES, 04/17/17) Uncoded Allergies: NO CT SCANS (Adverse Reaction, Mild, 05/27/12) Reported Meds & Prescriptions Reported Meds & Active Scripts Active Clonidine (Clonidine HCl) 0.1 Mg Tab 0.1 Mg PO Q12HR PRN [place] (Hydrocodone-Acetaminophen) 5-325 mg Tab 1 Tab PO Q6H PRN Reported Carbamazepine 100 Mg Chew Unknown Dose CHEW TID Gabapentin 100 Mg Cap Unknown Dose PO TID Alprazolam 0.25 Mg Tab 0.25 Mg PO Q6H PRN Losartan (Losartan Potassium) 50 Mg Tab 50 Mg PO BID Bystolic (Nebivolol) 10 Mg Tab 20 Mg PO DAILY Sertraline (Sertraline HCl) 50 Mg Tab 50 Mg PO DAILY Review of Systems General / Constitutional: No: Fever, Chills Eyes: No: Diploplia, Blurred Vision HENT: Positive: Headaches Cardiovascular: Positive: Syncope, No: Chest Pain or Discomfort, Palpitations Respiratory: No: Cough, Shortness of Breath Gastrointestinal: No: Vomiting, Diarrhea Genitourinary: No: Urgency, Frequency Musculoskeletal: Positive: Weakness, Pain, No: Myalgias Skin: Positive Rash Endocrine: No: Heat Intolerance Physical Exam Narrative GENERAL: Patient is awake and alert SKIN: Focused skin assessment warm/dry. HEAD: There is a laceration of the posterior scalp. Normocephalic. EYES: Pupils equal and round. No scleral icterus. No injection or drainage. ENT: No nasal bleeding or discharge. Mucous membranes pink and moist. NECK: Trachea midline. No JVD. CARDIOVASCULAR: Regular rate and rhythm. No murmur appreciated. RESPIRATORY: No accessory muscle use. Clear to auscultation. Breath sounds equal bilaterally. GASTROINTESTINAL: Abdomen soft, non-tender, nondistended. Hepatic and splenic margins not palpable. MUSCULOSKELETAL: No obvious deformities. No clubbing. No cyanosis. No edema. NEUROLOGICAL: Awake and alert. No obvious cranial nerve deficits. There is some weakness of the right arm. Normal speech. PSYCHIATRIC: Appropriate mood and affect; insight and judgment normal. Data Data Last Documented VS Vital Signs Date Time Temp Pulse Resp B/P (MAP) Pulse Ox O2 Delivery O2 Flow Rate FiO2 04/17/17 14:16 99 18 147/56 (86) 97 Room Air 04/17/17 12:10 99.8 Orders Orders Electrocardiogram (04/17/17 13:04) Complete Blood Count With Diff (04/17/17 13:04) Comprehensive Metabolic Panel (04/17/17 13:04) Troponin I (04/17/17 13:04) Prothrombin Time / Inr (Pt) (04/17/17 13:04) Act Partial Throm Time (Ptt) (04/17/17 13:04) Urinalysis - C+S If Indicated (04/17/17 13:04) Magnesium (Mg) (04/17/17 13:04) Thyroid Stimulating Hormone (04/17/17 13:04) Ct Brain W/O Iv Contrast(Rout) (04/17/17 13:04) Orthostatic Vital Signs (04/17/17 13:04) Carbamazepine (Tegretol) (04/17/17 13:07) Tetanus-Diphther Tox Peds Inj (Tetanus-D (04/17/17 14:30) Labs Laboratory Tests Test 04/17/17 13:20 04/17/17 13:35 Urine Collection Type CLEAN CATCH Urine Color YELLOW Urine Turbidity CLEAR Urine pH 5.5 Urine Specific [place] 1.015 Urine Protein NEG mg/dL Urine Glucose (UA) NEG mg/dL Urine Ketones NEG mg/dL Urine Occult Blood NEG Urine Nitrite NEG Urine Bilirubin NEG Urine Leukocyte Esterase NEG Urine RBC 0-3 /hpf Urine WBC 0-2 /hpf Urine Squamous Epithelial Cells 0-5 /hpf Microscopic Urinalysis Comment CULT NOT INDICATED Urine Collection Time 13:20 White Blood Count 10.2 TH/MM3 Red Blood Count 3.13 MIL/MM3 Hemoglobin 11.1 GM/DL Hematocrit 31.9 % Mean Corpuscular Volume 101.9 FL Mean Corpuscular Hemoglobin 35.3 PG Mean Corpuscular Hemoglobin Concent 34.7 % Red Cell Distribution Width 18.8 % Platelet Count 181 TH/MM3 Mean Platelet Volume 7.4 FL Neutrophils (%) (Auto) 85.6 % Lymphocytes (%) (Auto) 5.4 % Monocytes (%) (Auto) 7.4 % Eosinophils (%) (Auto) 0.3 % Basophils (%) (Auto) 1.3 % Neutrophils # (Auto) 8.8 TH/MM3 Lymphocytes # (Auto) 0.5 TH/MM3 Monocytes # (Auto) 0.8 TH/MM3 Eosinophils # (Auto) 0.0 TH/MM3 Basophils # (Auto) 0.1 TH/MM3 CBC Comment DIFF FINAL Differential Comment Prothrombin Time 11.3 SEC Prothromb Time International Ratio 1.0 RATIO Activated Partial Thromboplast Time 24.5 SEC Blood Urea Nitrogen 23 MG/DL Creatinine 1.50 MG/DL Random Glucose 118 MG/DL Total Protein 7.4 GM/DL Albumin 3.9 GM/DL Calcium Level 9.0 MG/DL Magnesium Level 1.8 MG/DL Alkaline Phosphatase 77 U/L Aspartate Amino Transf (AST/SGOT) 24 U/L Alanine Aminotransferase (ALT/SGPT) 19 U/L Total Bilirubin 0.4 MG/DL Sodium Level 136 MEQ/L Potassium Level 4.2 MEQ/L Chloride Level 103 MEQ/L Carbon Dioxide Level 23.4 MEQ/L Anion Gap 10 MEQ/L Estimat Glomerular Filtration Rate 33 ML/MIN Troponin I LESS THAN 0.02 NG/ML Thyroid Stimulating Hormone 3rd Gen 2.120 uIU/ML MDM Medical Decision Making Medical Screen Exam Complete: Yes Emergency Medical Condition: Yes Medical Record Reviewed: Yes Differential Diagnosis [place] includes syncope, subdural, scalp laceration Narrative Course Laceration has been repaired. CT scan of brain is negative. CBC and electrolytes are normal. Patient is stable for discharge Diagnosis Primary Impression: Laceration of scalp Qualified Codes: S01.01XA - Laceration without foreign body of scalp, initial encounter Disposition: DISCHARGE HOME Condition: Stable Blue Santizo MD Apr 17, 2017 13:07
[2017-04-17 13:37] LABS: BLOOD, URINE NEG (NEG); GLUCOSE,URINE NEG (NEG); KETONE, URINE NEG (NEG); NITRITE,URINE NEG (NEG); PH, URINE 5.5 (5.0-8.5)
[2017-04-17 13:45] LABS: AUTOMATED NEUTROPHIL # 8.8 TH/MM3 (1.8-7.7); BASOPHIL # 0.1 TH/MM3 (0-0.2); BASOPHIL % 1.3 % (0.0-2.0); EOSINOPHIL % 0.3 % (0.0-4.0); HEMATOCRIT 31.9 % (35.0-46.0); LYMPH % 5.4 % (9.0-44.0); LYMPHOCYTE # 0.5 TH/MM3 (1.0-4.8); MEAN CELL VOLUME 101.9 FL (80.0-100.0); MEAN CORPUSCULAR HEMOGLOBIN 35.3 PG (27.0-34.0); MEAN CORPUSCULAR HGB CONC 34.7 % (32.0-36.0); MONO % 7.4 % (0.0-8.0); NEUT % 85.6 % (16.0-70.0); PLATELET COUNT 181 TH/MM3 (150-450); RED BLOOD COUNT 3.13 MIL/MM3 (4.00-5.30); RED CELL DISTRIBUTION WIDTH 18.8 % (11.6-17.2); WHITE BLOOD COUNT 10.2 TH/MM3 (4.0-11.0)
[2017-04-17 13:48] LABS: HEMO FLAGS DIFF FINAL
[2017-04-17 13:49] LABS: METHOD OF COLLECTION CLEAN CATCH; URINE COLOR YELLOW (YELLW/STRAW)
[2017-04-17 13:50] LABS: COMMENT (UR) CULT NOT INDICATED; CULTURE IF INDICATED CULT NOT INDICATED; RBC, URINE 0-3 /hpf (0-3); SQUAMOUS EPITHELIAL CELL URINE 0-5 /hpf (0-5); WBC, URINE 0-2 /hpf (0-5)
--- NOTE | 2017-04-17 13:53 | RADRPT ---
EXAM DATE/TIME: 04/17/2017 13:44 [facility] COMPARISON: No previous studies available for comparison. INDICATIONS : Trauma. Fall. Posterior head laceration. RADIATION DOSE: 58.76 CTDIvol (mGy) MEDICAL HISTORY : Hypertension. SURGICAL HISTORY : Appendectomy. Cholecystectomy. ENCOUNTER: Initial ACUITY: 1 day PAIN SCALE: 2/10 LOCATION: cranial TECHNIQUE: Multiple contiguous axial images were obtained of the head. Using automated exposure control and adj ustment of the mA and/or kV according to patient size, radiation dose was kept as low as reasonably a chievable to obtain optimal diagnostic quality images. DICOM format image data is available electro nically for review and comparison. FINDINGS: CEREBRUM: The ventricles are normal for age. No evidence of midline shift, mass lesion, hemorrhage or acute in farction. No extra-axial fluid collections are seen. POSTERIOR FOSSA: The cerebellum and brainstem are intact. The 4th ventricle is midline. The cerebellopontine angle i s unremarkable. EXTRACRANIAL: The visualized portion of the orbits is intact. SKULL: The calvaria is intact. No evidence of skull fracture. CONCLUSION: 1. No acute intracranial abnormality. Canelo Hemphill MD on April 17, 2017 at 13:51 Board Certified Radiologist. This report was verified electronically.
[2017-04-17 13:55] LABS: CHLORIDE 103 MEQ/L (98-107); POTASSIUM 4.2 MEQ/L (3.5-5.1); SODIUM (NA) 136 MEQ/L (136-145)
[2017-04-17 13:59] LABS: ANION GAP 10 MEQ/L (5-15); BICARBONATE 23.4 MEQ/L (21.0-32.0); BLOOD UREA NITROGEN 23 MG/DL (7-18); MAGNESIUM 1.8 MG/DL (1.5-2.5)
[2017-04-17 14:02] LABS: ALT (GPT) 19 U/L (10-53); AST (GOT) 24 U/L (15-37); GLOMERULAR FILTRATION RATE 33 ML/MIN (>89)
[2017-04-17 14:03] LABS: TOTAL BILIRUBIN ADULT 0.4 MG/DL (0.2-1.0)
[2017-04-17 14:05] LABS: ALKALINE PHOSPHATASE 77 U/L (45-117)
[2017-04-17 14:14] VITALS: BP_SYST 142; BP_SYST 97; BP_DIAS 43; BP_DIAS 56; BP_DIAS 93; RESP 18
[2017-04-17 14:16] VITALS: BP 147/56; PULSE 99; RESP 18; O2SAT 97
[2017-04-17 14:28] LABS: APTT (PATIENT) 24.5 SEC (24.3-30.1); PROTHROMBIN TIME - PATIENT 11.3 SEC (9.8-11.6)
[2017-04-17] MEDS ORDERED: TETANUS/DIPHTHERIA TOXOID PEDIATRIC 0.5 ML VIAL IM ONE (14:30)
--- NOTE | 2017-04-17 14:36 | PD ---
Physical Exam Time Seen by Provider: 14:15 Narrative Scalp Laceration repair performed by myself as requested by my attending physician Dr. Zepeda please see his full note regarding patient's visit. LACERATION LOCATION: Scalp LENGTH: 3 cm NUMBER OF STITCHES/KWASI: 6 kwasi REPAIR: The area of the laceration was prepped with Betadine and sterilely draped. The wound was copiously irrigated and explored without evidence of foreign body, tendon injury or neurovascular injury. galea intact. The wound was closed using kwasi. This was a single layer repair. A sterile dressing was applied. The patient was advised to keep the dressing clean and dry. Patient tolerated the procedure well. Data Data Last Documented VS Vital Signs Date Time Temp Pulse Resp B/P (MAP) Pulse Ox O2 Delivery O2 Flow Rate FiO2 04/17/17 14:16 99 18 147/56 (86) 97 Room Air 04/17/17 12:10 99.8 Orders Orders Electrocardiogram (04/17/17 13:04) Complete Blood Count With Diff (04/17/17 13:04) Comprehensive Metabolic Panel (04/17/17 13:04) Troponin I (04/17/17 13:04) Prothrombin Time / Inr (Pt) (04/17/17 13:04) Act Partial Throm Time (Ptt) (04/17/17 13:04) Urinalysis - C+S If Indicated (04/17/17 13:04) Magnesium (Mg) (04/17/17 13:04) Thyroid Stimulating Hormone (04/17/17 13:04) Ct Brain W/O Iv Contrast(Rout) (04/17/17 13:04) Orthostatic Vital Signs (04/17/17 13:04) Carbamazepine (Tegretol) (04/17/17 13:07) Tetanus-Diphther Tox Peds Inj (Tetanus-D (04/17/17 14:30) Labs Laboratory Tests Test 04/17/17 13:20 04/17/17 13:35 Urine Collection Type CLEAN CATCH Urine Color YELLOW Urine Turbidity CLEAR Urine pH 5.5 Urine Specific [place] 1.015 Urine Protein NEG mg/dL Urine Glucose (UA) NEG mg/dL Urine Ketones NEG mg/dL Urine Occult Blood NEG Urine Nitrite NEG Urine Bilirubin NEG Urine Leukocyte Esterase NEG Urine RBC 0-3 /hpf Urine WBC 0-2 /hpf Urine Squamous Epithelial Cells 0-5 /hpf Microscopic Urinalysis Comment CULT NOT INDICATED Urine Collection Time 13:20 White Blood Count 10.2 TH/MM3 Red Blood Count 3.13 MIL/MM3 Hemoglobin 11.1 GM/DL Hematocrit 31.9 % Mean Corpuscular Volume 101.9 FL Mean Corpuscular Hemoglobin 35.3 PG Mean Corpuscular Hemoglobin Concent 34.7 % Red Cell Distribution Width 18.8 % Platelet Count 181 TH/MM3 Mean Platelet Volume 7.4 FL Neutrophils (%) (Auto) 85.6 % Lymphocytes (%) (Auto) 5.4 % Monocytes (%) (Auto) 7.4 % Eosinophils (%) (Auto) 0.3 % Basophils (%) (Auto) 1.3 % Neutrophils # (Auto) 8.8 TH/MM3 Lymphocytes # (Auto) 0.5 TH/MM3 Monocytes # (Auto) 0.8 TH/MM3 Eosinophils # (Auto) 0.0 TH/MM3 Basophils # (Auto) 0.1 TH/MM3 CBC Comment DIFF FINAL Differential Comment Prothrombin Time 11.3 SEC Prothromb Time International Ratio 1.0 RATIO Activated Partial Thromboplast Time 24.5 SEC Blood Urea Nitrogen 23 MG/DL Creatinine 1.50 MG/DL Random Glucose 118 MG/DL Total Protein 7.4 GM/DL Albumin 3.9 GM/DL Calcium Level 9.0 MG/DL Magnesium Level 1.8 MG/DL Alkaline Phosphatase 77 U/L Aspartate Amino Transf (AST/SGOT) 24 U/L Alanine Aminotransferase (ALT/SGPT) 19 U/L Total Bilirubin 0.4 MG/DL Sodium Level 136 MEQ/L Potassium Level 4.2 MEQ/L Chloride Level 103 MEQ/L Carbon Dioxide Level 23.4 MEQ/L Anion Gap 10 MEQ/L Estimat Glomerular Filtration Rate 33 ML/MIN Troponin I LESS THAN 0.02 NG/ML Thyroid Stimulating Hormone 3rd Gen 2.120 uIU/ML [facility] Supervised Visit with KHALIF: Yes Carrol Francisco Apr 17, 2017 14:36
--- NOTE | 2017-04-17 14:53 | EKG ---
Date Performed: 04/17/2017 Time Performed: 13:26:17 PTAGE: 81 years EKG: Baseline artifact present Normal Sinus rhythm MINIMAL ST DEPRESSION ABNORMAL RHYTHM ECG No significant change from prior electrocardiogram. PREVIOUS TRACING : 03/09/2017 04.06 DOCTOR: Nehemias Dawn Interpretating Date/Time 04/17/2017 14:53:04
== END 2017-04-17 15:22 | disposition home or self-care (01) ==
LOC: PHEFT 12:10
DX: S01.01XA Laceration without foreign body of scalp, initial encounter (principal); R94.31 Abnormal electrocardiogram [ECG] [EKG]; I10 Essential (primary) hypertension; M19.90 Unspecified osteoarthritis, unspecified site; H91.93 Unspecified hearing loss, bilateral; Z51.81 Encounter for therapeutic drug level monitoring; Z79.899 Other long term (current) drug therapy; X58.XXXA Exposure to other specified factors, initial encounter; Y92.009 Unspecified place in unspecified non-institutional (private) residence as the place of occurrence of the external cause
CPT/HCPCS: 12002; 70450; 80053; 80156; 81001; 83735; 84443; 84484; 85025; 85610; 85730; 93005

== ENCOUNTER 2017-04-17 17:37 | Inpatient (IN) | payer MEDICARE ==
[~2017-04-17] VITALS: Ht 160 cm; Wt 71.5 kg
[~2017-04-17 17:37] MED LIST changes: +CARB100C PO; +GABA100C4 PO
[2017-04-17 18:31] VITALS: BP 131/52; PULSE 93; RESP 18; TEMP 99.2; O2SAT 94
--- NOTE | 2017-04-17 18:33 | PD ---
HPI Chief Complaint: General Weakness Time Seen by Provider: 18:19 Travel History International Travel<30 days: No Contact w/Intl Traveler<30days: No Traveled to known affect area: No History of Present Illness HPI 81-year-old female came to the emergency room brought by EMS since she was unable to get out of the car and get to the house in spite of her 's assistance after she was discharged from the emergency room here. Patient was seen few hours ago in the emergency room by the previous ER physician for a fall. Her scalp laceration was repaired. Blood tests were done which showed some renal insufficiency but otherwise negative. CAT scan of her head was negative. is unable to take care of her at home. He called EMS to bring her back since she was unable to get up from the floor. Patient has some degree of dementia. She does not appear to be in any significant distress and vitals are stable. 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, HEARING AID IN.) Gastrointestinal Disorders: Yes (COLITIS) Glaucoma: No Genitourinary: Yes (KIDNEY DISEASE) Hepatitis: No Hiatal Hernia: No Hypertension: Yes Musculoskeletal: Yes (BACK PROBLEMS,HERNIATED DISC) Psychiatric: Yes (DEPRESSION) Reproductive: Yes (ENDOMETRIOSIS, CYST IN BREAST) Respiratory: No Integumentary: Yes (HIVES) Immunizations Current: Yes (FLU SHOT-2007) Thyroid Disease: No Menopausal: Yes Past Surgical History Abdominal Surgery: Yes Appendectomy: Yes Cholecystectomy: Yes Ear Surgery: No Endocrine Surgery: No Eye Surgery: No Genitourinary Surgery: No Gynecologic Surgery: Yes (,D&C-1975,L SALPINGO OOPHORECTOMY) Hysterectomy: No Joint Replacement: No Neurologic Surgery: No Oral Surgery: No Other Surgery: Yes (LYSIS OF ADHESIONS.) Social History Alcohol Use: Yes (0-1/DAY) Tobacco Use: No (QUIT IN 1969) Substance Use: No Allergies-Medications (Allergen,Severity, Reaction): Coded Allergies: diphenhydramine (Unverified Allergy, Severe, Hives, 04/17/17) hydroxyzine (Unverified Allergy, Severe, 04/17/17) loratadine (Unverified Allergy, Severe, Hives, 04/17/17) montelukast (Unverified Allergy, Severe, Hives, 04/17/17) fexofenadine (Unverified Allergy, Intermediate, HIVES, 04/17/17) Uncoded Allergies: NO CT SCANS (Adverse Reaction, Mild, 05/27/12) Comments List of her allergies reviewed from the nursing note. Reported Meds & Prescriptions Reported Meds & Active Scripts Active [place] (Hydrocodone-Acetaminophen) 5-325 mg Tab 1 Tab PO Q6H PRN Reported Alprazolam 0.25 Mg Tab 0.25 Mg PO Q6H PRN Losartan (Losartan Potassium) 50 Mg Tab 50 Mg PO BID Bystolic (Nebivolol) 10 Mg Tab 20 Mg PO DAILY Sertraline (Sertraline HCl) 50 Mg Tab 50 Mg PO DAILY Narrative Medication List of her home medications of it from the nursing note Review of Systems Except as stated in HPI: all other systems reviewed are Neg Physical Exam Narrative GENERAL: Awake, dementia, elderly, no obvious distress SKIN: Focused skin assessment warm/dry. Right upper extremity rash of shingles as well as superficial abrasion on the left knee HEAD: Atraumatic. Normocephalic. EYES: Pupils equal and round. No scleral icterus. No injection or drainage. ENT: No nasal bleeding or discharge. Mucous membranes pink and moist. NECK: Trachea midline. No JVD. CARDIOVASCULAR: Regular rate and rhythm. No murmur appreciated. RESPIRATORY: No accessory muscle use. Clear to auscultation. Breath sounds equal bilaterally. GASTROINTESTINAL: Abdomen soft, non-tender, nondistended. Hepatic and splenic margins not palpable. MUSCULOSKELETAL: No obvious deformities. No clubbing. No cyanosis. No edema. NEUROLOGICAL: Awake and alert. No obvious cranial nerve deficits. Motor grossly within normal limits. Normal speech. PSYCHIATRIC: Appropriate mood and affect; insight and judgment normal. Data Data Last Documented VS Vital Signs Date Time Temp Pulse Resp B/P (MAP) Pulse Ox O2 Delivery O2 Flow Rate FiO2 04/17/17 18:31 99.2 93 18 131/52 (78) 94 Room Air Orders Orders Place In Observation (04/17/17 ) Vital Signs (Adult) Q4H (04/17/17 18:42) Neuro Checks Q4H (04/17/17 18:42) Activity Bed Rest With Brp (04/17/17 18:42) Diet Regular Basic (04/17/17 Dinner) Sodium Chloride 0.9% Flush (Ns Flush) (04/17/17 18:45) Sodium Chloride 0.9% Flush (Ns Flush) (04/17/17 21:00) Ondansetron Inj (Zofran Inj) (04/17/17 18:45) Basic Metabolic Panel (Bmp) (04/18/17 06:00) Complete Blood Count With Diff (04/18/17 06:00) Pt Request For Service (04/17/17 18:42) Ot Request For Service (04/17/17 18:42) Naloxone Inj (Narcan Inj) (04/17/17 18:45) Case Management Consult (04/17/17 ) Alprazolam (Xanax) (04/17/17 18:45) Losartan (Cozaar) (04/17/17 21:00) Nebivolol (Bystolic) (04/18/17 09:00) Sertraline (Zoloft) (04/18/17 09:00) Admit Order (Ed Use Only) (04/17/17 18:54) Gabapentin (Neurontin) (04/18/17 09:00) MDM Medical Decision Making Medical Screen Exam Complete: Yes Emergency Medical Condition: Yes Medical Record Reviewed: Yes Differential Diagnosis Dementia, generalized weakness Narrative Course 6:31 PM awaiting for the hospitalist to call back. There is no case management at this hour or for the weekend. Procedures EKG Prior to Arrival: No Diagnosis Primary Impression: Generalized weakness Additional Impression: Dementia Qualified Codes: F03.90 - Unspecified dementia without behavioral disturbance Admitting Information Admitting Physician Requests: Observation Scripts Gabapentin (Neurontin) 300 Mg Cap 600 MG PO TID for hand pain, #90 CAP Prov: Mustapha Mccarty MD 04/21/17 Devante Lopez MD Apr 17, 2017 18:33
[2017-04-17] MEDS ORDERED: ALPRAZolam 0.25 MG TAB PO PRN (18:45)
[2017-04-17] MEDS ORDERED: NALOXONE HCL 0.4 MG/ML AMP IV PUSH PRN (18:45)
[2017-04-17] MEDS ORDERED: ONDANSETRON HCL 4 MG/2 ML VIAL IVP PRN (18:45)
[2017-04-17] MEDS ORDERED: SODIUM CHLORIDE 0.9% FLUSH 10 ML FLUSH IV FLUSH PRN (18:45)
[2017-04-17 19:30] VITALS: BP 121/58; PULSE 88; RESP 18; O2SAT 93
[2017-04-17] MEDS: SODIUM CHLORIDE 0.9% FLUSH 10 ML FLUSH IV FLUSH SCH (21:08)
[2017-04-17 21:35] VITALS: BP 123/52; PULSE 90; RESP 18; O2SAT 94
[2017-04-17] MEDS: LOSARTAN 50 MG TAB PO SCH (22:06)
[2017-04-18 01:50] VITALS: BP 121/65; PULSE 85; RESP 16; TEMP 98.7; O2SAT 93
[2017-04-18] MEDS ORDERED: ACETAMINOPHEN/HYDROcodone 325 MG/5 MG TAB PO ONE (02:15)
[2017-04-18 07:18] LABS: POTASSIUM 3.9 MEQ/L (3.5-5.1)
[2017-04-18 07:22] LABS: BICARBONATE 23.2 MEQ/L (21.0-32.0)
[2017-04-18 07:25] LABS: AUTOMATED NEUTROPHIL # 5.1 TH/MM3 (1.8-7.7); BASOPHIL % 0.4 % (0.0-2.0); EOSINOPHIL # 0.1 TH/MM3 (0-0.4); EOSINOPHIL % 0.9 % (0.0-4.0); HEMATOCRIT 29.2 % (35.0-46.0); HEMO FLAGS DIFF FINAL; LYMPH % 15.8 % (9.0-44.0); LYMPHOCYTE # 1.2 TH/MM3 (1.0-4.8); MEAN CELL VOLUME 100.8 FL (80.0-100.0); MEAN CORPUSCULAR HEMOGLOBIN 33.5 PG (27.0-34.0); MEAN CORPUSCULAR HGB CONC 33.2 % (32.0-36.0); NEUT % 69.9 % (16.0-70.0); PLATELET COUNT 174 TH/MM3 (150-450); RED CELL DISTRIBUTION WIDTH 17.8 % (11.6-17.2); WHITE BLOOD COUNT 7.4 TH/MM3 (4.0-11.0)
[2017-04-18 08:00] VITALS: BP 119/70; PULSE 73; RESP 18; TEMP 97; O2SAT 96
[2017-04-18] MEDS: SERTRALINE HCL 50 MG TAB PO SCH (08:35)
[2017-04-18] MEDS: NEBIVOLOL 10 MG TAB PO SCH (08:35)
[2017-04-18] MEDS: GABAPENTIN 300 MG CAP PO SCH ×3 (08:35→17:07)
[2017-04-18] MEDS: SODIUM CHLORIDE 0.9% FLUSH 10 ML FLUSH IV FLUSH SCH ×2 (08:35→21:45)
[2017-04-18] MEDS: LOSARTAN 50 MG TAB PO SCH ×2 (08:36→21:45)
[2017-04-18] MEDS ORDERED: ACETAMINOPHEN 325 MG TAB PO PRN (09:00)
[2017-04-18] MEDS ORDERED: MAGNESIUM HYDROXIDE SUSP 30 ML CUP PO PRN (09:00)
[2017-04-18] MEDS ORDERED: DOCUSATE SODIUM 100 MG CAP PO PRN (09:00)
[2017-04-18] MEDS ORDERED: IBUPROFEN 400 MG TAB PO PRN (09:00)
[2017-04-18] MEDS ORDERED: KETOROLAC TROMETHAMINE 60 MG/2 ML (IM) VIAL IM ONE (09:00)
--- NOTE | 2017-04-18 10:39 | RADRPT ---
EXAM DATE/TIME: 04/18/2017 10:10 [facility] COMPARISON: No previous studies available for comparison. INDICATIONS : Left anterior chest wall pain for 1 week after a fall MEDICAL HISTORY : Hypertension. SURGICAL HISTORY : None. ENCOUNTER: Subsequent ACUITY: 1 week PAIN SCORE: 5/10 LOCATION: Left chest FINDINGS: Multiple views of the left ribs were performed. There is no evidence of displaced fracture. No dest ructive lesions or areas of periosteal thickening are seen. Expiratory view of the chest is negative for pneumothorax. The mediastinal structures are midline. There are right lung calcified granulomas and calcified lymph nodes in the right hilar region. Clips are seen in the right upper quadrant. CONCLUSION: No acute disease. Bao Tellez MD on April 18, 2017 at 10:36 Board Certified Radiologist. This report was verified electronically.
--- NOTE | 2017-04-18 11:22 | HHI.HP ---
[facility] Dell Soliz MD Admission Diagnosis generalized weakness, dementia Diagnoses: (1) Fall at home Diagnosis: Principal (2) Head injury Diagnosis: Principal (3) Postconcussion syndrome Diagnosis: Principal (4) Generalized weakness Diagnosis: Principal (5) Rib pain on left side Diagnosis: Principal Chief Complaint: Generalized weakness, left rib pain, fall at home Travel History International Travel<30 Days: No Contact w/Intl Traveler <30 Da: No Traveled to Known Affected Are: No History of Present Illness Written by Seth Juarez, acting as scribe for Dr. Rodriguez on on 04/18/17 at 10:40. This is a 81-year-old female with known history of dementia, chronic kidney disease, hypertension who presented to hospital because of fall at home. 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 Patient states that she was trying to pick a plate in her right hand in which she does have pain and weakness and and she fell down and hit her head. She denies any loss of consciousness. Patient states that she could not get up because of the pain in her right arm and hand. Her found her on the floor and brought her to the hospital. Patient had evaluation done in emergency department and had head laceration repaired. They're discharged and will make at home she get out of the car and started walking into the garage and she fell again landing on her left side hitting her rib cage area. Patient states that her brought her back to the hospital because she fell again, did not think that she was acting right, she is having problems with her memory. However, documentation and records indicate some possible dementia. As indicated that there was no field case manager available at the time patient was seen in the emergency department so it was recommended by the ER physician that the patient be observed in the hospital. Patient was seen today and is alert and orientated 4. She is complaining of left rib pain. Her memory appears to be much improved. She still complaining of right upper extremity pain from postherpetic neuropathy. Workup that was done emergency department did not indicate any acute abnormality. Patient denies any loss of consciousness, headache, visual disturbances, paresthesia, difficulty eating or swallowing food. The came to see the patient this morning and gave further information that she's been having worsening neurological complaints and symptoms with multiple episodes of slurred speech at home, significant memory issues, right upper extremity weakness, difficulty in ambulating with recurrent falls. Review of Systems Musculoskeletal: COMPLAINS OF: Joint pain Past Family Social History Past Medical History Hypertension Chronic kidney disease Arthritis Postherpetic neuropathy Anxiety Chronic back pain Past Surgical History Appendectomy Cholecystectomy Left salpingo-oophorectomy D&C Lysis of abdominal adhesions Reported Medications Reported Meds & Active Scripts Active Clonidine (Clonidine HCl) 0.1 Mg Tab 0.1 Mg PO Q12HR PRN [place] (Hydrocodone-Acetaminophen) 5-325 mg Tab 1 Tab PO Q6H PRN Reported Carbamazepine 100 Mg Chew 200 Mg PO TID Gabapentin 100 Mg Cap 300 Mg PO TID Alprazolam 0.25 Mg Tab 0.25 Mg PO Q6H PRN Losartan (Losartan Potassium) 50 Mg Tab 50 Mg PO BID Bystolic (Nebivolol) 10 Mg Tab 20 Mg PO DAILY Sertraline (Sertraline HCl) 50 Mg Tab 50 Mg PO DAILY Allergies: Coded Allergies: diphenhydramine (Unverified Allergy, Severe, Hives, 04/17/17) hydroxyzine (Unverified Allergy, Severe, 04/17/17) loratadine (Unverified Allergy, Severe, Hives, 04/17/17) montelukast (Unverified Allergy, Severe, Hives, 04/17/17) fexofenadine (Unverified Allergy, Intermediate, HIVES, 04/17/17) Uncoded Allergies: NO CT SCANS (Adverse Reaction, Mild, 05/27/12) Family History Reviewed is significant for father in his 80s, mother in her 80s, no indication of any heart disease, lung disease, diabetes, seizures, stroke Social History Patient quit smoking in 1969, prior to that she smoked one pack a cigarettes a day since she was 22. He drinks alcohol occasionally. Denies any illicit drugs Physical Exam Vital Signs Vital Signs Date Time Temp Pulse Resp B/P (MAP) Pulse Ox O2 Delivery O2 Flow Rate FiO2 04/18/17 08:00 97.0 73 18 119/70 (86) 96 04/18/17 05:04 04/18/17 01:50 98.7 85 16 121/65 (83) 93 04/17/17 22:14 04/17/17 21:35 90 18 123/52 (75) 94 04/17/17 19:30 88 16 93 Room Air 04/17/17 19:30 88 18 121/58 (79) 93 Room Air 04/17/17 18:31 99.2 93 18 131/52 (78) 94 Room Air Physical Exam GENERAL: Well-developed, well-nourished, in no acute distress. alert and orientated HEENT: Head is normocephalic without any lesions or masses noted. Facial features are symmetric. Eyes: Pupils equal round reactive to light. Extraocular muscles are intact. Conjunctivae were clear. Oropharyngeal: Pharynx without any erythema edema. Tongue is midline without deviation. Buccal mucosa is moist without any masses or lesions NECK: Supple without any masses. Trachea midline no deviation. No JVD, no bruits are appreciated CARDIAC: Regular rhythm, regular rate. S1/S2 are heard. No murmurs gallops or rubs. LUNGS: Clear to auscultation bilaterally. No wheeze, rhonchi or rales. No use of accessory muscles on inspiration or expiration. ABDOMEN: Soft, nontender. Nondistended. Bowel sounds heard in all 4 quadrants. No organomegaly or masses. Negative rebound, negative guarding EXTREMITIES: No edema, pulses are equal bilaterally. No cyanosis or clubbing NEUROLOGY: Mood and affect appear appropriate. Cranial nerves II through XII grossly intact. Muscle strength 5/5 in lower extremities bilaterally. carrier blower strength 2/5 in rt upper extremity. Deep tendon reflexes are 2+ in upper and lower extremities bilaterally. Laboratory Laboratory Tests Test 04/18/17 06:24 White Blood Count 7.4 Red Blood Count 2.90 Hemoglobin 9.7 Hematocrit 29.2 Mean Corpuscular Volume 100.8 Mean Corpuscular Hemoglobin 33.5 Mean Corpuscular Hemoglobin Concent 33.2 Red Cell Distribution Width 17.8 Platelet Count 174 Mean Platelet Volume 8.3 Neutrophils (%) (Auto) 69.9 Lymphocytes (%) (Auto) 15.8 Monocytes (%) (Auto) 13.0 Eosinophils (%) (Auto) 0.9 Basophils (%) (Auto) 0.4 Neutrophils # (Auto) 5.1 Lymphocytes # (Auto) 1.2 Monocytes # (Auto) 1.0 Eosinophils # (Auto) 0.1 Basophils # (Auto) 0.0 CBC Comment DIFF FINAL Differential Comment Blood Urea Nitrogen 24 Creatinine 1.30 Random Glucose 92 Calcium Level 8.7 Sodium Level 137 Potassium Level 3.9 Chloride Level 104 Carbon Dioxide Level 23.2 Anion Gap 10 Estimat Glomerular Filtration Rate 39 Result Diagram: 04/18/1762304/18/17623 Caprini VTE Risk Assessment Caprini VTE Risk Assessment: Mod/High Risk (score >= 2) Caprini Risk Assessment Model Point Value = 1 Point Value = 2 Point Value = 3 Point Value = 5 Age 41-60 Minor surgery BMI > 25 kg/m2 Swollen legs Varicose veins or History of unexplained or recurrent spontaneous Oral contraceptives or hormone replacement Sepsis (< 1 month) Serious lung disease, including pneumonia (< 1 month) Abnormal pulmonary function Acute myocardial infarction Congestive heart failure (< 1 month) History of inflammatory bowel disease Medical patient at bed rest Age 61-74 Arthroscopic surgery Major open surgery (> 45 min) Laparoscopic surgery (> 45 min) Malignancy Confined to bed (> 72 hours) Immobilizing plaster cast Central venous access Age >= 75 History of VTE Family history of VTE Factor V Leiden Prothrombin [id number] Lupus anticoagulant Anticardiolipin antibodies Elevated serum homocysteine Heparin-induced thrombocytopenia Other congenital or acquired thrombophilia Stroke (< 1 month) Elective arthroplasty Hip, pelvis, or leg fracture Acute spinal cord injury (< 1 month) Prophylaxis Regimen Total Risk Factor Score Risk Level Prophylaxis Regimen 0-1 Low Early ambulation 2 Moderate Order ONE of the following: *Sequential Compression Device (SCD) *Heparin 5000 units SQ BID 3-4 Higher Order ONE of the following medications: *Heparin 5000 units SQ TID *Enoxaparin/Lovenox 40 mg SQ daily (WT < 150 kg, CrCl > 30 mL/min) *Enoxaparin/Lovenox 30 mg SQ daily (WT < 150 kg, CrCl > 10-29 mL/min) *Enoxaparin/Lovenox 30 mg SQ BID (WT < 150 kg, CrCl > 30 mL/min) AND/OR *Sequential Compression Device (SCD) 5 or more Highest Order ONE of the following medications: *Heparin 5000 units SQ TID (Preferred with Epidurals) *Enoxaparin/Lovenox 40 mg SQ daily (WT < 150 kg, CrCl > 30 mL/min) *Enoxaparin/Lovenox 30 mg SQ daily (WT < 150 kg, CrCl > 10-29 mL/min) *Enoxaparin/Lovenox 30 mg SQ BID (WT < 150 kg, CrCl > 30 mL/min) AND *Sequential Compression Device (SCD) Assessment and Plan Assessment and Plan TIA vs CVA - multiple episodes of slurred speech, also has right hand weakness - Obtain MRI/MRA of the brain, MRI of the cervical spine, lipid profile Start aspirin 81 mg daily Holter monitor Echocardiogram Obtain further studies to include B12, folate, lipid panel, sedimentation rate, RPR Consult PT/OT/ST Fall at home with head injury, weakness, possible underlying postconcussion syndrome versus neurological abnormality such as stroke, spinal stenosis CT scan of the head did not indicate any acute abnormality Continued neuro checks for possible underlying postconcussion syndrome Obtain physical therapy evaluation, occupational therapy evaluation, speech therapy evaluation Case management consulted for discharge planning Left rib pain secondary to fall Rib x-ray does not indicate any acute fracture Hypertension Home medication has been continued Posthepatic neuropathy - involving right upper extremity. She has weakness of the hand and atrophy. Consult PT. Continue small dose of Lortab as needed for pain. Continue Neurontin. DVT prevention Sequential compression devices Discussed with patient and at bedside Addendum to Inpatient Note Additional Information This note was transcribed by scribe. Spr[place], Dr. Tabatha Rodriguez personally performed the history, physical exam, and medical decision making; and confirmed the accuracy of the information in the transcribed note, and made corrections were indicated. Authenticated by Dr. Tabatha Rodriguez on 04/18/17 at 12:19. Seth Juarez Apr 18, 2017 11:22 Tabatha Rodriguez MD Apr 18, 2017 12:20
[2017-04-18 12:00] VITALS: BP 122/76; PULSE 70; RESP 19; TEMP 97.6; O2SAT 95
[2017-04-18] MEDS: ACETAMINOPHEN/HYDROcodone 325 MG/5 MG TAB PO PRN ×3 (13:09→21:45)
[2017-04-18] MEDS: ASPIRIN EC 81 MG TABEC PO SCH (13:09)
[2017-04-18 13:13] LABS: INDIRECT BILIRUBIN 0.4 MG/DL (0.0-0.8); TOTAL BILIRUBIN ADULT 0.5 MG/DL (0.2-1.0)
[2017-04-18 16:01] LABS: HDL CHOLESTEROL 48.9 MG/DL (40.0-60.0)
--- NOTE | 2017-04-18 16:29 | RADRPT ---
EXAM DATE/TIME: 04/18/2017 16:01 This report includes an Addendum and supersedes previous reports for this exam. [facility] COMPARISON: CT BRAIN W/O CONTRAST, April 17, 2017, 13:44. INDICATIONS : Dizziness. MEDICAL HISTORY : Renal insufficiency, chronic. Hypertension. Dementia. SURGICAL HISTORY : Discectomy, lumbar. ENCOUNTER: Initial ACUITY: 1 day PAIN SCORE: 0/10 LOCATION: cranial TECHNIQUE: Multiplanar, multisequence MRI of the brain was performed without contrast. FINDINGS: CEREBRUM: Magnetic susceptibility artifact emanates from scalp kwasi of the right parietal region. The ventri cles are normal for age. No evidence of midline shift, mass lesion, hemorrhage or acute infarction. No extraaxial fluid collections are seen. The pituitary gland and suprasellar cistern are normal in configuration. WHITE MATTER: Moderate severity, chronic symmetric flair signal abnormality seen of both cerebral hemispheres. POSTERIOR FOSSA: The cerebellum and brainstem are intact. The 4th ventricle is midline. The cerebellopontine angle is unremarkable. The cerebellar tonsils are normal in position. DIFFUSION IMAGING: No focal areas of restricted diffusion are seen. No evidence of acute infarction. EXTRACRANIAL: The visualized portions of the orbits and paranasal sinuses are unremarkable. CONCLUSION: 1. Study slightly limited due to right parietal scalp kwasi. No acute infarct or other acute intrac ranial abnormality demonstrated. 2. Moderate severity chronic white matter changes. Bao Hernandez MD on April 18, 2017 at 16:27 Board Certified Radiologist. This report was verified electronically. ADDENDUM: I have been asked to review this case. There is increase linear signal seen in the sulci at the right parietal and right temporal lobe. There is also increase linear signal in the folds of the right lob e of the cerebellum. The patient does have artifact from skin kwasi over the right side of the head . The increased signal seen on the flair images could potentially represent subarachnoid hemorrhage. Hemorrhage is not seen on the prior CT examination. No fracture seen on the prior CT examination. The skin kwasi could potentially be creating an artifact causing the linear increased signal. This cou ld be further evaluated with a noncontrast CT examination. Bao Tellez MD on April 19, 2017 at 13:50 Board Certified Radiologist. This report was verified electronically.
--- NOTE | 2017-04-18 16:34 | RADRPT ---
EXAM DATE/TIME: 04/18/2017 16:01 [facility] COMPARISON: No previous studies available for comparison. INDICATIONS : Dizziness. MEDICAL HISTORY : Renal failure, chronic. Hypertension. SURGICAL HISTORY : Discectomy, lumbar. ENCOUNTER: Initial ACUITY: 1 day PAIN SCORE: 0/10 LOCATION: cranial Please note a normal MRA of the brain does not entirely exclude the possibility of a small aneurysm, nor the possibility of distal intracranial vessel disease. TECHNIQUE: 3D time of flight MRA was performed. Source images, multiplanar STS MIP, and 3D volume MIP reconstru ctions were reviewed. FINDINGS: Anterior circulation: Intracranial carotid arteries are patent with flow extending to the anterior and middle cerebral amado jesika. There is no evidence for aneurysm, vessel truncation or stenosis, and no evidence for vascular malformation. Posterior circulation: The very distal vertebral arteries are patent with flow extending to the basilar artery. There is foc al critical stenosis of the very distal basilar artery just beyond the origin of the superior cerebel lar arteries. Posterior communicating arteries are patent bilaterally with flow demonstrated in the p osterior cerebral arteries bilaterally. There is no evidence for aneurysm, vessel truncation or steno sis, and no evidence for vascular malformation. CONCLUSION: 1. 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 The posterior communicating arteries are patent and opacify the posterior cerebra l arteries bilaterally. Herbert Montalvo MD on April 18, 2017 at 16:26 Board Certified Radiologist. This report was verified electronically.
--- NOTE | 2017-04-18 16:52 | RADRPT ---
EXAM DATE/TIME: 04/18/2017 16:01 [facility] COMPARISON: No previous studies available for comparison. INDICATIONS : Dizziness. MEDICAL HISTORY : Hypertension. Renal insufficiency, chronic. SURGICAL HISTORY : Discectomy, lumbar. ENCOUNTER: Initial ACUITY: 1 day PAIN SCORE: 0/10 LOCATION: neck Percent stenosis is calculated using the diameter of the stenotic region over the diameter of the nor mal distal internal carotid artery. TECHNIQUE: 3D time of flight MRA of the extracranial circulation was performed using a neurovascu lar coil. Post processing was performed including rotating subvolume maximum intensity projections o f each carotid artery, rotating full-volume maximum intensity projections of both carotid arteries, s agittal and coronal sliding thin-slab reformations of each carotid artery, and left oblique sliding t hin slab reformation through the aortic arch to include the origin of the arch branch vessels. FINDINGS: Examination is limited due to patient motion and significant steps stair artifact. AORTIC ARCH: Aortic arch is grossly patent. Left subclavian artery is not visualized. RIGHT CAROTID: Right common carotid artery is grossly patent. The carotid bulb is grossly patent but suboptimally visualized for stenosis evaluation. Origin of the internal carotid artery is grossly patent and again suboptimally visualized for stenosis evaluation. The cervical segment of the internet project manager al carotid artery is not visualized. Portions of the distal intracranial internal carotid artery are grossly patent. LEFT CAROTID: Left carotid artery is grossly patent. The carotid bulb is grossly patent although suboptimally visualized for stenosis evaluation. Internal carotid artery appears grossly patent altho ugh again suboptimally visualized for stenosis evaluation. VERTEBRALS: Origin of vertebral arteries are not visualized. Left vertebral artery appears patent to the skull base. The right vertebral artery is not visualized on the proximal neck. CONCLUSION: 1. Essentially nondiagnostic cervical MRA examination. 2. Left subclavian artery is not visualized which may reflect significant flow-limiting stenosis at t he origin. 3. Large portion of the right internal carotid cervical segment not visualized which may also reflect hemodynamically significant stenosis. 4. Origin of vertebral arteries not visualized. 5. Remaining visualized portions of the carotid and vertebral arteries are grossly patent although ahn boptimally visualized to evaluate for stenosis. 6. Consider CTA examination of the neck if there is continued clinical concern. Herbert Montalvo MD on April 18, 2017 at 16:42 Board Certified Radiologist. This report was verified electronically.
--- NOTE | 2017-04-18 17:24 | RADRPT ---
EXAM DATE/TIME: 04/18/2017 16:01 [facility] COMPARISON: No previous studies available for comparison. INDICATIONS : Fall, dizziness. MEDICAL HISTORY : Hypertension. Renal insufficiency, chronic. SURGICAL HISTORY : Discectomy, lumbar. ENCOUNTER: Initial ACUITY: 1 day PAIN SCORE: 0/10 LOCATION: Paraspinal TECHNIQUE: Multiplanar, multisequence MRI examination of the cervical spine was performed. FINDINGS: VERTEBRAE: Normal vertebral body height. Diffusely heterogeneous degenerative marrow signal. ALIGNMENT: Sagittal alignment is grossly maintained. CORD: Normal configuration and signal. POST FOSSA: The cerebellar tonsils are normal in position. C2-C3: Bilateral uncovertebral osteophytes and facet arthropathy. No significant central canal or rivera ral foraminal stenosis. C3-C4: Mild bilateral uncovertebral osteophytes. No significant central canal or neural foraminal jayy nosis. C4-C5: Disc space loss with endplate sclerosis and posterior disc osteophyte complex. Mild effacement of the anterior thecal sac. Mild bilateral facet arthropathy with mild bilateral neural foraminal st enosis. C5-C6: Disc space loss with posterior disc osteophyte complex and lateral facet arthropathy. Mild eff acement of the anterior thecal sac. Moderate right and mild left neural foraminal stenosis. C6-C7: Disc space loss with posterior disc osteophyte complex. Effacement of the anterior thecal sac with central canal measuring approximately 10 mm. Slight flattening of the cervical cord without sign ificant signal change. Mild right and moderate left neural foraminal stenosis. C7-T1: No significant abnormality. CONCLUSION: 1. [id number] multilevel degenerative spondylosis without significant central canal stenosis an d variable neural foraminal stenosis. Please see above for description of each level. Herbert Montalvo MD on April 18, 2017 at 17:18 Board Certified Radiologist. This report was verified electronically.
[2017-04-18 21:23] VITALS: BP 118/58; PULSE 70; RESP 16; TEMP 98.7; O2SAT 96
[2017-04-19 01:11] VITALS: BP 110/60; PULSE 71; RESP 18; TEMP 98; O2SAT 97
[2017-04-19] MEDS: ACETAMINOPHEN/HYDROcodone 325 MG/5 MG TAB PO PRN ×5 (03:35→19:40)
[2017-04-19 07:16] LABS: AUTOMATED NEUTROPHIL # 5.5 TH/MM3 (1.8-7.7); BASOPHIL % 0.5 % (0.0-2.0); EOSINOPHIL # 0.3 TH/MM3 (0-0.4); HEMATOCRIT 32.9 % (35.0-46.0); HEMO FLAGS DIFF FINAL; LYMPH % 16.5 % (9.0-44.0); LYMPHOCYTE # 1.3 TH/MM3 (1.0-4.8); MEAN CELL VOLUME 101.9 FL (80.0-100.0); MEAN CORPUSCULAR HEMOGLOBIN 34.1 PG (27.0-34.0); MEAN CORPUSCULAR HGB CONC 33.4 % (32.0-36.0); MONO % 10.7 % (0.0-8.0); NEUT % 68.3 % (16.0-70.0); PLATELET COUNT 212 TH/MM3 (150-450); RED BLOOD COUNT 3.23 MIL/MM3 (4.00-5.30); RED CELL DISTRIBUTION WIDTH 18.1 % (11.6-17.2)
[2017-04-19 07:36] LABS: BICARBONATE 19.9 MEQ/L (21.0-32.0)
[2017-04-19 08:00] VITALS: BP 111/50; PULSE 72; RESP 18; TEMP 98.1; O2SAT 92
[2017-04-19] MEDS: NEBIVOLOL 10 MG TAB PO SCH (08:40)
[2017-04-19] MEDS: ASPIRIN EC 81 MG TABEC PO SCH (08:40)
[2017-04-19] MEDS: LOSARTAN 50 MG TAB PO SCH ×2 (08:40→21:03)
[2017-04-19] MEDS: SODIUM CHLORIDE 0.9% FLUSH 10 ML FLUSH IV FLUSH SCH ×2 (08:40→21:03)
[2017-04-19] MEDS: SERTRALINE HCL 50 MG TAB PO SCH (08:40)
[2017-04-19] MEDS ORDERED: GABAPENTIN 300 MG CAP PO SCH ×2 (09:00→13:00)
[2017-04-19 12:00] VITALS: BP 115/61; PULSE 79; RESP 18; TEMP 97.8; O2SAT 93
--- NOTE | 2017-04-19 13:02 | HHI.PR ---
Subjective Remarks Patient states pain is worse in her right forearm. She ambulated well physical therapy yesterday. No further episodes of slurred speech. Objective Vitals Vital Signs Date Time Temp Pulse Resp B/P (MAP) Pulse Ox O2 Delivery O2 Flow Rate FiO2 04/19/17 12:00 97.8 79 18 115/61 (79) 93 04/19/17 09:42 18 04/19/17 08:00 98.1 72 18 111/50 (70) 92 04/19/17 05:03 04/19/17 01:11 98.0 71 18 110/60 (77) 97 04/18/17 21:23 98.7 70 16 118/58 (78) 96 I/O 04/18/17 04/18/17 04/18/17 04/19/17 04/19/17 04/19/17 07:00 15:00 23:00 07:00 15:00 23:00 Intake Total 240 ml Output Total 1000 ml Balance -1000 ml 240 ml Intake Oral 240 ml Output Urine Total 1000 ml # Voids 3 3 # Bowel Movements 0 Result Diagram: 04/19/17 0612 04/19/17 0612 Objective Remarks GENERAL: Well-nourished, well-developed patient. SKIN: Warm and dry. HEAD: Normocephalic. Posterior scalp abrasion. EYES: No scleral icterus. No injection or drainage. NECK: Supple, trachea midline. No JVD or lymphadenopathy. CARDIOVASCULAR: Regular rate and rhythm without murmurs, gallops, or rubs. RESPIRATORY: Breath sounds equal bilaterally. No accessory muscle use. GASTROINTESTINAL: Abdomen soft, non-tender, nondistended. EXTREMITIES: No cyanosis, or edema. Weakness and atrophy of the right hand. NEUROLOGICAL: Awake, alert, and oriented x 3. A/P Problem List: (1) Fall at home ICD Code: W19.XXXA - Unspecified fall, initial encounter; Y92.099 - Unspecified place in other non-institutional residence as the place of occurrence of the external cause (2) Head injury ICD Code: S09.90XA - Unspecified injury of head, initial encounter (3) Postconcussion syndrome ICD Code: F07.81 - Postconcussional syndrome (4) Generalized weakness ICD Code: R53.1 - Weakness Status: Acute (5) Rib pain on left side ICD Code: R07.81 - Pleurodynia Assessment and Plan TIA vs CVA - multiple episodes of slurred speech, also has right hand weakness - MRI brain negative/MRA of the brain shows 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 She has weakness of the hand and atrophy, possible ulnar neuropathy. Cervical spine MRI was negative. Continue occupational therapy. Will increase Lortab and gabapentin. DVT prevention Sequential compression devices Tabatha Rodriguez MD Apr 19, 2017 13:02
--- NOTE | 2017-04-19 13:56 | MB ---
cc: JANY VANG M.D. DATE OF CONSULTATION: 04/19/2017. HISTORY OF PRESENT ILLNESS: 81-year-old right-handed woman with a history of hypertension, hypercholesterolemia, only one kidney. She does not take an aspirin a day. She does not remember, but Thursday she was in the kitchen and wound up on the floor. She remembers waking up on the floor. She did not have a headache. She has had since January post herpetic neuralgia with weakness of the finger flexors and wrist extensors of the right side with shooting sharp burning pain for which she was on Neurontin 300 three times a day and then started about a week ago on Tegretol 200 twice a day and then recently over the weekend was increased to one pill three times a day. When she first took her first dose of Tegretol, she slept well and did not have pain in the morning but the pain has been there ever since. No chest pain or palpitations. She may have had some memory problems recently, however. SOCIAL HISTORY: She is not a smoker or a drinker and lives with her . FAMILY HISTORY: Negative for cancer and seizure and positive for stroke. REVIEW OF SYSTEMS: She denies any history of diabetes, myocardial infarction, CABG, stents, angioplasty, atrial fibrillation, coumadin, hepatic, or pulmonary disease, thyroid disease, lupus, ulcer, cancer, seizure or stroke. MEDICATIONS: She was on 1. Tegretol 200 three times a day. 2. Neurontin 300 three times a day. 3. Hydrocodone. 4. Clonidine. 5. Alprazolam. 6. Losartan. 7. Bystolic. 8. Sertraline 50 milligrams a day. PHYSICAL EXAMINATION: VITAL SIGNS: On exam, sinus rhythm, afebrile, 115/61. Lowest blood pressure is 97/43. NECK: There are no carotid bruits. HEART: Regular rhythm. I do not detect a murmur. NEUROLOGICAL EXAMINATION: Pupils are equal. Visual james are full. Extraocular movements intact without nystagmus. Face is symmetric with normal sensation. Tongue was midline. Strength in the upper and bilateral lower extremities is normal. DTRs are 2+ and symmetric at the knees. Toes are downgoing bilaterally. There is no ankle clonus. Tone was normal in bilateral lower extremities. Pin prick is intact throughout bilateral lower and left upper extremity and face bilaterally. The right upper extremity she has normal strength in the deltoid and biceps but her triceps is weak at about a 4+/5. Finger extensors are weak at about a 0-1/5 as are finger flexors about a 0-1/5 and she has the sequelae of her past herpetic infection on her skin. IMAGING STUDIES: MRI of the brain shows some artifact from her kwasi. There is a question whether she has some right parietal and cerebellar sulcal hemorrhage on the FLAIR images but no old strokes are noted. MRA of the [place] of [place] was normal except the distal basilar has stenosis above the level of the superior cerebellar arteries and the DENTAL OFFICE RECEPTIONIST comes strongly off the anterior circulation. I suspect this is chronic. MRA of the neck - there was too much movement to make any comment on that. MRI of the cervical spine negative for any cord compression. LABS: CBC was normal except for an MCV of 102. Basic metabolic profile: Creatinine 1.5, otherwise essentially normal. Liver function tests are normal. Troponin negative. LDL cholesterol 111. Folate normal. Thyroid normal. B12 normal. Tegretol level was 12.4 when she was admitted. Urinalysis negative. IMPRESSION: She may have just had a little bit too much of the medication onboard and fell back. The other possibility would be syncopal episodes. I think seizure is unlikely as she was on two seizure medications. 1. I am going to have her stop the Tegretol for now and try to increase the Gabapentin for the pain. 2. 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 3. I will have to talk with the radiologist about if there was any subarachnoid bleeding, although none was seen on the CT. 4. We can check an EEG. 5. I would recommend having cardiology see her for her syncopal episode. 6. Will check some standing blood pressures. I will be following her with you in the hospital. I noted her short-term memory today was only 2/3 and she had difficulty coming up with the year, so she may have some underlying dementia which Dr. Trejo, her neurologist, could work on as an outpatient. ADDENDUM I did talk with the radiologist. He thought this was subarachnoid blood and I talked with the medical team and they will call and at least have neurosurgery review the films and see if neurosurgery thinks anything more needs to be done as opposed to just posttraumatic subarachnoid hemorrhage. MD NANCY Nick/VINCE /1:15 PM /8:12 AM
--- NOTE | 2017-04-19 14:36 | RADRPT ---
EXAM DATE/TIME: 04/19/2017 13:31 [facility] COMPARISON: No previous studies available for comparison. EXTERNAL COMPARISON : [facility], [place] CAROTID ARTERIES, September 10, 2016 INDICATIONS : Slurred speech. MEDICAL HISTORY : Hypertension. Colitis. Endometriosis. Arthritis. SURGICAL HISTORY : Dilation and curettage. Oophorectomy. Herniated disc surgery. Lysis of adhesions. ENCOUNTER: Subsequent ACUITY: 1 day PAIN SCORE: 0/10 LOCATION: Bilateral neck PEAK SYSTOLIC VELOCITIES (cm/sec): ICA/CCA RATIO: Right: 1.2 Left: 1.5 ICA: Right: 122 Left: 183 CCA: Right: 103 Left: 122 ECA: Right: 108 Left: 231 VERTEBRAL: Right: 83 antegrade Left: Non-visualized absent Elevated flow velocities and ICA/CCA ratios have been found to correlate with increased degrees of vessel stenosis, calculated as percentage of diameter relative to a normal segment of distal ICA/CCA FINDINGS: RIGHT CAROTID: Mild calcified plaque in the carotid bulb extending to the origin of the internal carotid artery with resultant mild stenosis. LEFT CAROTID: Mild bulky calcified plaque in the carotid bulb extending to the origin of the internal carotid arter y with resultant mild stenosis. VERTEBRAL ARTERIES: Left vertebral artery is not visualized. Antegrade flow in the right vertebral artery. MISCELLANEOUS: None. CONCLUSION: 1. Mild calcified plaque in the carotid bulbs extending to the internal carotid origins with resultan t mild, less than 50%, stenosis. This is more prominent on the left. 2. Nonvisualization of the left vertebral artery. Antegrade right vertebral artery flow. Herbert Montalvo MD on April 19, 2017 at 14:31 Board Certified Radiologist. This report was verified electronically.
[2017-04-19 16:00] VITALS: BP 112/62; PULSE 72; RESP 19; TEMP 98; O2SAT 93
[2017-04-19] MEDS ORDERED: ACETAMINOPHEN/HYDROcodone 325 MG/5 MG TAB PO PRN (16:00)
[2017-04-19] MEDS: GABAPENTIN 300 MG CAP PO SCH (17:09)
[2017-04-19] MEDS: ATORVASTATIN 40 MG TAB PO SCH ×2 (19:43→21:00)
[2017-04-19 21:35] VITALS: BP_SYST 110; BP_SYST 117; BP_SYST 125; BP_DIAS 59; BP_DIAS 62; BP_DIAS 68; PULSE 69; RESP 16; TEMP 98.2; O2SAT 98
[2017-04-20] VITALS (7 sets, daily range): BP systolic 88–166; BP diastolic 48–93; PULSE 67–74; RESP 16–20; TEMP 96.8–98.9; O2SAT 94–95
[2017-04-20] MEDS: ACETAMINOPHEN/HYDROcodone 325 MG/5 MG TAB PO PRN ×6 (00:10→20:16)
[2017-04-20] MEDS: GABAPENTIN 300 MG CAP PO SCH ×3 (08:10→18:02)
[2017-04-20] MEDS: SODIUM CHLORIDE 0.9% FLUSH 10 ML FLUSH IV FLUSH SCH ×2 (08:10→20:16)
[2017-04-20] MEDS: SERTRALINE HCL 50 MG TAB PO SCH (08:10)
[2017-04-20] MEDS: NEBIVOLOL 10 MG TAB PO SCH (08:11)
[2017-04-20] MEDS: LOSARTAN 50 MG TAB PO SCH ×2 (08:11→20:15)
--- NOTE | 2017-04-20 08:51 | HHI.PR ---
Subjective Remarks no [email or web address] Objective Vital Signs Date Time Temp Pulse Resp B/P (MAP) Pulse Ox O2 Delivery O2 Flow Rate FiO2 04/20/17 04:28 04/20/17 00:45 98.9 67 16 119/60 (79) 94 04/19/17 21:35 98.2 69 16 110/68 (82) 98 125/62 (83) 117/59 (78) 04/19/17 16:16 18 04/19/17 16:00 98.0 72 19 112/62 (79) 93 04/19/17 12:00 97.8 79 18 115/61 (79) 93 04/19/17 09:42 18 I/O 04/19/17 04/19/17 04/19/17 04/20/17 04/20/17 04/20/17 07:00 15:00 23:00 07:00 15:00 23:00 # Voids 3 2 2 # Bowel Movements 0 0 Result Diagram: 04/19/17 0612 04/19/17 0612 Objective Remarks awake alert nad Assessment and Plan Assessment and Plan imp echo and holter and eeg stand bp ok rec cards for possible syncope watch tele labs neg check trop nusu opinion on sah med team working on stable neuro arm pain better on 600 tid neurontin could dc neurowise if all above addressed and resolved Vaughn Quintanilla MD Apr 20, 2017 08:51
--- NOTE | 2017-04-20 10:18 | HHI.NSPN ---
Exam Results Vital Signs Date Time Temp Pulse Resp B/P (MAP) Pulse Ox O2 Delivery O2 Flow Rate FiO2 04/20/17 04:28 04/20/17 00:45 98.9 67 16 94 04/17/17 19:30 Room Air Attending Statement Small area of traumatic subarachnoid hemorrhage does not require any intervention. Cleared for discharge and please set up appt for office visit. Maximo Solorzano MD Apr 20, 2017 10:18
--- NOTE | 2017-04-20 14:26 | HM ---
Date Performed: 04/18/2017 Time Performed: 19:41:00 HOOKUP DATE: 04/18/17 07:41:00 PM Sat ANALYSIS START TIME: 04/18/2017 7:46:00 PM ANALYSIS END TIME: 04/19/2017 7:50:00 PM PATIENT AGE: 81 PATIENT HEIGHT PATIENT WEIGHT DRUG LIST PATIENT DIAGNOSIS: generalized weakness dementia TEST NARRATIVE: The patient's average heart rate was 71 BPM. No episodes of tachycardia wer e noted. No episodes of bradycardia were noted. No pauses exceeding 2.0 seconds were noted. 36 ventricular ectopics, which represented < 1% of the total beat count, were noted. The highest riky tricular ectopic frequency occurred from 08:00 PM to 09:00 PM Sat. During this time 3 VE(s) occurred . Ventricular ectopics were observed as 36 isolated beat(s) only. No couplets or runs were noted. 39 supraventricular ectopics, which represented < 1% of the total beat count, were noted. The hig hest supraventricular ectopic frequency occurred from 03:00 AM to 04:00 AM Sun. During this time 6 S VE(s) occurred. No episodes of ST depression (defined as -1.0 mm or more) were noted in channel [address] . No episodes of [address] depression (defined as -1.0 mm or more) were noted in channel 2. No episodes of ST depression (defined as -1.0 mm or more) were noted in channel 3. NO DIARY RETURNED TEST INTERPRETATION: Overall benign Holter monitoring. The underlying rhythm is Sinus rhythm . One 5 beat run of paroxysmal atrial tachycardia is recorded, likely of no clinical significance. Signed by : Rajan Bridges
--- NOTE | 2017-04-20 16:35 | ECHRPT ---
Indication: cva/tia CONCLUSIONS Normal left ventricular size. Wall thickness is normal. The left ventricular systolic function is normal with an estimated ejection fraction in the range of 60-65%. There is mild to moderate tricuspid valve regurgitation. There is estimated moderate pulmonary hypertension present (57mmHg). There is a trivial pericardial effusion present. No hemodynamically significant echocardiographic features were observed (no pre-tamponade physiology). BP: / HR: Rhythm: Sinus MEASUREMENTS (Male / Female) Normal Values Technical Quality:Good 2D ECHO LV Diastolic Diameter PLAX 3.9 cm 4.2 - 5.9 / 3.9 - 5.3 cm LV Systolic Diameter PLAX 2.9 cm IVS Diastolic Thickness 1.0 cm 0.6 - 1.0 / 0.6 - 0.9 cm LVPW Diastolic Thickness 0.8 cm 0.6 - 1.0 / 0.6 - 0.9 cm LV Relative Wall Thickness 0.4 RV Internal Dim ED PLAX 2.0 cm LA Systolic Diameter LX 3.6 cm 3.0 - 4.0 / 2.7 - 3.8 cm M-MODE AV Cusp Separation MM 1.7 cm DOPPLER Mitral E Point Velocity 106.0 cm/s Mitral A Point Velocity 85.5 cm/s Mitral E to A Ratio 1.2 TR Peak Velocity 362.0 cm/s TR Peak Gradient 52.4 mmHg FINDINGS LEFT VENTRICLE Normal left ventricular size. Wall thickness is normal. The left ventricular systolic function is normal with an estimated ejection fraction in the range of 60-65%. RIGHT VENTRICLE Normal right ventricular size and systolic function. LEFT ATRIUM The left atrial size is normal. RIGHT ATRIUM The right atrial size is normal. ATRIAL SEPTUM Normal atrial septal thickness without atrial level shunting by limited color doppler interrogation. AORTA The aortic root and proximal ascending aorta are normal in size on limited imaging. MITRAL VALVE Structurally normal mitral valve. No mitral valve stenosis or regurgitation. AORTIC VALVE Trileaflet aortic valve. No aortic valve stenosis or regurgitation. TRICUSPID VALVE There is mild to moderate tricuspid valve regurgitation. There is estimated moderate pulmonary hypertension present (57mmHg). PULMONARY VALVE The pulmonary valve is not well visualized. VESSELS The inferior vena cava is normal in size. PERICARDIUM There is a trivial pericardial effusion present. No hemodynamically significant echocardiographic features were observed (no pre-tamponade physiology). Lisa Silva MD, FACC (Electronically Signed) Final Date:20 April 2017 16:34
--- NOTE | 2017-04-20 18:19 | HHI.PR ---
Subjective Remarks OT reports that patient is improving, would benefit from home health OT for her right hand. Patient herself says she has no headaches, has not had any pass out episodes or any falls while inpatient. Feels good today, eating without difficulty Patient denies having any chest pain preceding during or after the incident involving her falls. Also denies any atypical signs of angina including shortness of breath and this timeframe. Objective Vital Signs Date Time Temp Pulse Resp B/P (MAP) Pulse Ox O2 Delivery O2 Flow Rate FiO2 04/20/17 11:30 96.8 74 18 140/68 (92) 04/20/17 11:24 96.8 74 18 140/68 (92) 04/20/17 09:18 17 04/20/17 08:00 96.8 74 18 140/68 (92) 95 04/20/17 04:28 04/20/17 00:45 98.9 67 16 119/60 (79) 94 04/19/17 21:35 98.2 69 16 110/68 (82) 98 125/62 (83) 117/59 (78) I/O 04/19/17 04/19/17 04/19/17 04/20/17 04/20/17 04/20/17 07:00 15:00 23:00 07:00 15:00 23:00 # Voids 3 2 2 # Bowel Movements 0 0 Result Diagram: 04/19/17 0612 04/19/17 0612 Objective Remarks No acute distress Unlabored breathing No slurred speech, no facial droop, alert and oriented 3, intact conjugate gaze Chronic right hand deformity, otherwise grossly intact range of motion of all 4 proximal extremities, steady gait A/P Assessment and Plan TIA vs CVA - multiple episodes of slurred speech, also has right hand weakness - MRI brain negative/MRA of the brain shows 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 Stopping aspirin per subdural SHAW. Echocardiogram negative LDL is 111 we'll start statin PT/OT/ST Neurology following appreciate recommendations Subdural SHAW - no further intervention needed per neurosurgery, no NSAIDs Fall at home with head injury, weakness - no further falls, Holter monitor - neg. clinically speaking per the history, the patient did not have symptoms suggestive of acute myocardial infarction, troponin obtained is negative. 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 She has weakness of the hand and atrophy, possible ulnar neuropathy. Cervical spine MRI was negative. Continue occupational therapy. Lortab and gabapentin. DVT prevention Sequential compression devices, no chemoprophylaxis 2/ brain bleed Mustapha Mccarty MD Apr 20, 2017 18:19
[2017-04-20] MEDS: ATORVASTATIN 40 MG TAB PO SCH ×2 (20:15→20:20)
[2017-04-21] VITALS: BP 112/57; PULSE 70; RESP 18; TEMP 97; O2SAT 93
[2017-04-21 04:00] VITALS: BP 108/66; PULSE 73; RESP 18; TEMP 96.6; O2SAT 95
[2017-04-21 08:00] VITALS: BP 115/67; PULSE 69; RESP 17; TEMP 96.4; O2SAT 92
[2017-04-21] MEDS: SODIUM CHLORIDE 0.9% FLUSH 10 ML FLUSH IV FLUSH SCH (09:40)
[2017-04-21] MEDS: GABAPENTIN 300 MG CAP PO SCH ×2 (09:40→13:18)
[2017-04-21] MEDS: SERTRALINE HCL 50 MG TAB PO SCH (09:41)
[2017-04-21] MEDS: LOSARTAN 50 MG TAB PO SCH (09:41)
[2017-04-21] MEDS: NEBIVOLOL 10 MG TAB PO SCH (09:41)
[2017-04-21 12:00] VITALS: BP 139/61; PULSE 73; RESP 18; TEMP 96.8; O2SAT 96
[2017-04-21] MEDS: ACETAMINOPHEN/HYDROcodone 325 MG/5 MG TAB PO PRN (12:00)
--- NOTE | 2017-04-21 12:15 | MG ---
cc: ANGELINA NORMAN M.D. Lab No: 17-___ Date: 04/19/2017 Age: 81 Sex: F Race: __ 04/21/[address] Quintanilla REASON FOR CONSULTATION An EEG was obtained on this 81-year-old patient being evaluated for dementia and depression. MEDICATIONS 1. Lynn 2. Neurontin 3. Aspirin 4. Bystolic 5. Zoloft 6. Cozaar DESCRIPTION The patient is described as awake during the study. The EEG shows a lot of 8-10 per second alpha rhythms centrally and posteriorly. The background is reactive. There are beta rhythms centrally and frontally. There is probable some drowsiness. There are some theta rhythms intermixed occasionally. There are some sharp waves, but no paroxysmal or epileptiform discharge. Intermittently, there is more artifact. Hyperventilation was not performed and photic stimulation was unremarkable. INTERPRETATION Mildly abnormal EEG because of mild slowing of the background though this is an equivocal abnormality for the patient's age. The findings suggest a very mild diffuse disturbance of cerebral function. No epileptiform features present, although there are some sharp waves. MD JENNIFER Navas/JOHNNIE /11:16 AM /12:04 PM
[2017-04-21] MEDS ORDERED: NEUR300C PO (12:59)
--- NOTE | 2017-04-21 13:01 | HHI.FF ---
Face to Face Verification Diagnosis: (1) Right hand weakness (2) Ulnar nerve neuropathy Occupational Therapy Order: Evaluate and Treat, Improve ADL, Gross motor coordination, Fine motor coordination Home Health Nursing Order: Nursing assessment with vital signs I have seen patient Yeimy Singleton on 04/21/17. My clinical findings support the need for the requested home health care services because: High risk of falls I certify that my clinical findings support that this patient is homebound because: Unsafe to leave home unassisted Mustapha Mccarty MD Apr 21, 2017 13:01
--- NOTE | 2017-04-21 13:08 | HHI.DS ---
Discharge Summary Admission Date Apr 18, 2017 at 12:08 Discharge Date: Apr 21, 2017 Admitting Diagnosis generalized weakness, dementia (1) Fall at home ICD Code: W19.XXXA - Unspecified fall, initial encounter; Y92.099 - Unspecified place in other non-institutional residence as the place of occurrence of the external cause Diagnosis: Principal Status: Acute (2) Head injury ICD Code: S09.90XA - Unspecified injury of head, initial encounter Diagnosis: Principal Status: Acute (3) Postconcussion syndrome ICD Code: F07.81 - Postconcussional syndrome Diagnosis: Principal (4) Generalized weakness ICD Code: R53.1 - Weakness Diagnosis: Principal Status: Resolved (5) Rib pain on left side ICD Code: R07.81 - Pleurodynia Diagnosis: Principal Procedures EEG, echo. Brief History - From Admission Written by Seth Juarez, acting as scribe for Dr. Rodriguez on on 04/18/17 at 10:40. This is a 81-year-old female with known history of dementia, chronic kidney disease, hypertension who presented to hospital because of fall at home. 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 Patient states that she was trying to pick a plate in her right hand in which she does have pain and weakness and and she fell down and hit her head. She denies any loss of consciousness. Patient states that she could not get up because of the pain in her right arm and hand. Her found her on the floor and brought her to the hospital. Patient had evaluation done in emergency department and had head laceration repaired. They're discharged and will make at home she get out of the car and started walking into the garage and she fell again landing on her left side hitting her rib cage area. Patient states that her brought her back to the hospital because she fell again, did not think that she was acting right, she is having problems with her memory. However, documentation and records indicate some possible dementia. As indicated that there was no rifle case repairer available at the time patient was seen in the emergency department so it was recommended by the ER physician that the patient be observed in the hospital. Patient was seen today and is alert and orientated 4. She is complaining of left rib pain. Her memory appears to be much improved. She still complaining of right upper extremity pain from postherpetic neuropathy. Workup that was done emergency department did not indicate any acute abnormality. Patient denies any loss of consciousness, headache, visual disturbances, paresthesia, difficulty eating or swallowing food. The came to see the patient this morning and gave further information that she's been having worsening neurological complaints and symptoms with multiple episodes of slurred speech at home, significant memory issues, right upper extremity weakness, difficulty in ambulating with recurrent falls. CBC/BMP: 04/19/17 0612 04/19/17 0612 Significant Findings Laboratory Tests Test 04/18/17 13:38 04/19/17 06:12 04/20/17 10:23 Red Blood Count 3.23 MIL/MM3 (4.00-5.30) Hemoglobin 11.0 GM/DL (11.6-15.3) Hematocrit 32.9 % (35.0-46.0) Mean Corpuscular Volume 101.9 FL (80.0-100.0) Mean Corpuscular Hemoglobin 34.1 PG (27.0-34.0) Red Cell Distribution Width 18.1 % (11.6-17.2) Monocytes (%) (Auto) 10.7 % (0.0-8.0) Blood Urea Nitrogen 31 MG/DL (7-18) Creatinine 1.50 MG/DL (0.50-1.00) Random Glucose 131 MG/DL (74-106) Sodium Level 135 MEQ/L (136-145) Carbon Dioxide Level 19.9 MEQ/L (21.0-32.0) Estimat Glomerular Filtration Rate 33 ML/MIN (>89) Troponin I LESS THAN 0.02 NG/ML Imaging Last Impressions Carotid Artery Ultrasound 04/19/17 0000 Signed Impressions: Service Date/Time: Wednesday, April 19, 2017 13:31 - CONCLUSION: 1. Mild calcified plaque in the carotid bulbs extending to the internal carotid origins with resultant mild, less than 50%%, stenosis. This is more prominent on the left. 2. Nonvisualization of the left vertebral artery. Antegrade right vertebral artery flow. Herbert Montalvo MD Ribs X-Ray 04/18/17 0000 Signed Impressions: Service Date/Time: Tuesday, April 18, 2017 10:10 - CONCLUSION: No acute disease. Bao Tellez MD Neck Magnetic Resonance Angiography 04/18/17 0000 Signed Impressions: Service Date/Time: Tuesday, April 18, 2017 16:01 - CONCLUSION: 1. Essentially nondiagnostic cervical MRA examination. 2. Left subclavian artery is not visualized which may reflect significant flow-limiting stenosis at the origin. 3. Large portion of the right internal carotid cervical segment not visualized which may also reflect hemodynamically significant stenosis. 4. Origin of vertebral arteries not visualized. 5. Remaining visualized portions of the carotid and vertebral arteries are grossly patent although suboptimally visualized to evaluate for stenosis. 6. Consider CTA examination of the neck if there is continued clinical concern. Herbert Montalvo MD Head Magnetic Resonance Angiography 04/18/17 0000 Signed Impressions: Service Date/Time: Tuesday, April 18, 2017 16:01 - CONCLUSION: 1. Focal critical stenosis of the very distal basilar artery just beyond the origin of the superior cerebellar arteries. The posterior communicating arteries are patent and opacify the posterior cerebral arteries bilaterally. Herbert Montalvo MD Cervical Spine MRI 04/18/17 0000 Signed Impressions: Service Date/Time: Tuesday, April 18, 2017 16:01 - CONCLUSION: 1. [id number] multilevel degenerative spondylosis without significant central canal stenosis and variable neural foraminal stenosis. Please see above for description of each level. Herbert Montalvo MD Brain MRI 04/18/17 0000 Signed Impressions: Service Date/Time: Tuesday, April 18, 2017 16:01 - CONCLUSION: 1. Study slightly limited due to right parietal scalp kwasi. No acute infarct or other acute intracranial abnormality demonstrated. 2. Moderate severity chronic white matter changes. Bao Hernandez MD ADDENDUM: I have been asked to review this case. There is increase linear signal seen in the sulci at the right parietal and right temporal lobe. There is also increase linear signal in the folds of the right lobe of the cerebellum. The patient does have artifact from skin kwasi over the right side of the head. The increased signal seen on the flair images could potentially represent subarachnoid hemorrhage. Hemorrhage is not seen on the prior CT examination. No fracture seen on the prior CT examination. The skin kwasi could potentially be creating an artifact causing the linear increased signal. This could be further evaluated with a noncontrast CT examination. Bao Tellez MD PE at Discharge Alert, oriented 3 No acute distress, ambulating well without any assistance and with a stable gait., No facial droop, no slurred speech Hospital Course Patient was admitted, placed on fall precautions. Had underwent laceration repair in the emergency room of her scalp. Underwent imaging which showed small area of traumatic subarachnoid hemorrhage - which neurosurgery recommended no acute intervention, just conservative monitoring. Initial cardiac workup was negative including a Holter monitor. Neurology had also been consulted and discontinued patient's carbamazepine and increased her gabapentin dose to minimize polypharmacy side effects that may have resulted in drowsiness leading to the patient's fall that resulted in her ER presentation. Echocardiogram was also unremarkable and the patient's EEG showed findings that were equivocal for diffuse slowing - which the medical team felt could be due to polypharmacy, whereas otherwise the EEG did not suggest any obvious epileptiform activity. Patient had no falls while she was inpatient or any episodes of diminished mental status. She was transiently hypotensive upon her orthostatics but otherwise her blood pressure was stable. Patient reported no pattie symptomatic lightheadedness otherwise and felt she was okay to go home. Patient was counseled extensively on avoiding all NSAID medication due to her brain bleed. Patient has met maximum benefit from hospitalization and is clinically stable for discharge with home health occupational therapy for her right hand weakness. Pt Condition on Discharge: Stable Discharge Disposition: Disch w/ Home Health Serv Discharge Time: > 30 minutes Discharge Instructions DIET: Follow Instructions for: As Tolerated, No Restrictions Speech Therapy-Diet Recommends: Regular Other Activity Instructions: no driving or operating any heavy machinery Follow up Referrals: Neurology - 10 Days Neurosurgery - 3 Weeks with Maximo Solorzano MD PCP Follow-up - 1 Week New Medications: Gabapentin (Neurontin) 300 Mg Cap 600 MG PO TID for hand pain, #90 CAP Continued Medications: Alprazolam (Alprazolam) 0.25 Mg Tab 0.25 MG PO Q6H PRN for ANXIETY, TAB 0 Refills Hydrocodone-Acetaminophen (Proctor) 5-325 mg Tab 1 TAB PO Q6H PRN for PAIN, #20 TAB 0 Refills Losartan (Losartan) 50 Mg Tab 50 MG PO BID for Blood Pressure Management, #30 TAB 0 Refills Nebivolol (Bystolic) 10 Mg Tab 20 MG PO DAILY for Blood Pressure Management, #30 TAB 0 Refills Sertraline (Sertraline) 50 Mg Tab 50 MG PO DAILY, #30 TAB 0 Refills Discontinued Medications: Carbamazepine (Carbamazepine) 100 Mg Chew 200 MG PO TID, #90 TAB 0 Refills Clonidine (Clonidine) 0.1 Mg Tab 0.1 MG PO Q12HR PRN for SBP>160, DBP>90, #4 TAB 0 Refills Gabapentin (Gabapentin) 100 Mg Cap 300 MG PO TID, #90 CAP 0 Refills Mustapha Mccarty MD Apr 21, 2017 13:08
--- NOTE | 2017-04-21 13:15 | HHI.DCPOC ---
Discharge Care Plan Additional Problems subarachnoid hemorrhage medication side effects To not take any nonsteroidal anti-inflammatory drugs including but not limited to aspirin, Advil, ibuprofen, Aleve, naproxen, Naprosyn, Goody powders, and BC powders. Goals to Promote Your Health * To prevent worsening of your condition and complications * To maintain your health at the optimal level Directions to Meet Your Goals Take your medications as prescribed Follow your dietary instruction Follow activity as directed Keep your appointments as scheduled Take your immunizations and boosters as scheduled If your symptoms worsen call your PCP, if no PCP go to Urgent Care Center or Emergency Room Smoking is Dangerous to Your Health. Avoid second hand smoke Call the 24-hour hour crisis hotline for domestic abuse at Mustapha Mccarty MD Apr 21, 2017 13:15
== END 2017-04-21 13:46 | disposition home or self-care (01) | DRG 86 ==
LOC: PHED 17:37 → PHEDA 18:55 → PH3B 22:18 → OBSVTOIN 04-18 12:08
PROVIDERS: ADMIT Hospitalist; ATTEND Hospitalist
DX: S06.6X0A Traumatic subarachnoid hemorrhage without loss of consciousness, initial encounter (principal); B02.29 Other postherpetic nervous system involvement; F03.90 Unspecified dementia, unspecified severity, without behavioral disturbance, psychotic disturbance, mood disturbance, and anxiety; F41.0 Panic disorder [episodic paroxysmal anxiety]; F32.9 Major depressive disorder, single episode, unspecified; H91.93 Unspecified hearing loss, bilateral; R07.81 Pleurodynia; W18.39XA Other fall on same level, initial encounter; Y92.009 Unspecified place in unspecified non-institutional (private) residence as the place of occurrence of the external cause; E78.00 Pure hypercholesterolemia, unspecified; I12.9 Hypertensive chronic kidney disease with stage 1 through stage 4 chronic kidney disease, or unspecified chronic kidney disease; N18.9 Chronic kidney disease, unspecified; S01.01XA Laceration without foreign body of scalp, initial encounter; R94.31 Abnormal electrocardiogram [ECG] [EKG]; M19.90 Unspecified osteoarthritis, unspecified site; Z79.899 Other long term (current) drug therapy; X58.XXXA Exposure to other specified factors, initial encounter
CPT/HCPCS: 12002; 70450; 70544; 70547; 70551; 71101; 72141; 80048; 80053; 80061; 80076; 80156; 81001; 82607; 82746; 83735; 84443; 84484; 85025; 85610; 85730; 86592; 93005; 93225; 93226; 93306; 93880; 95819; 99285; G0378; G8987-GO; G8987-GP; G8988-GO; G8988-GP; G8996-GN; G8997-GN; G8998-GN; J1885

== ENCOUNTER 2017-08-04 18:28 | Inpatient (IN) | payer MEDICARE ==
[~2017-08-04] VITALS: Ht 165.1 cm; Wt 71.9 kg
[~2017-08-04 18:28] MED LIST changes: -ALPR0.25 PO; -CARB100C PO; -CEPH500C PO; -CLON0.1T PO; -CLOTCRE TOPICAL; -ENTO3CAP5 PO; -GABA100C4 PO; +NEUR300C PO; -NORC5TAB PO; -PRED10 PO; -STOOTAB PO; -VALT1TAB PO
[2017-08-04 18:41] VITALS: BP 204/78; PULSE 94; RESP 18; TEMP 98.4; O2SAT 91
[2017-08-04] MEDS ORDERED: GABA300C5 PO (19:19)
--- NOTE | 2017-08-04 19:48 | PD ---
HPI Chief Complaint: Fall Time Seen by Provider: 19:26 Travel History International Travel<30 days: No Contact w/Intl Traveler<30days: No Traveled to known affect area: No History of Present Illness HPI 82-year-old female presents emergency department for evaluation of left hip pain after a fall approximately 2-3 hours prior to presentation. The patient states she was walking to get her mail and on the way up the driveway she dropped an envelope when she reached down to get it she lost her balance falling forward and onto her left side. She's had left hip pain ever since. She's been unable to bear weight. Her states he was able to get her in the car only with the assistance of several other people and she was bleeding heavily on another person's crunch. She denies any loss of consciousness chest pain shortness of breath abdominal pain neck pain or headache. She adamantly denies hitting her head or loss of consciousness. Patient states is happened to her once in the past and turned out she was overmedicated on a chronic pain medication that she was on for her radiculopathy of the right upper extremity, she thinks it was Sinemet. Patient is currently taking gabapentin 900 mg 3 times a day. She thinks this may have had something to do with it. Denies being on any blood thinners. 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, HEARING AID IN.) Endocrine: No Gastrointestinal Disorders: Yes (COLITIS) Glaucoma: No Genitourinary: Yes (KIDNEY DISEASE) Hepatitis: No Hiatal Hernia: No Hypertension: Yes Immune Disorder: No Medical other: Yes (DEAF TO RIGHT EAR) Musculoskeletal: Yes (BACK PROBLEMS,HERNIATED DISC) Neurologic: No Psychiatric: Yes Reproductive: Yes (ENDOMETRIOSIS, CYST IN BREAST) Respiratory: No Integumentary: Yes (HIVES) Immunizations Current: Yes (FLU SHOT-2007) Thyroid Disease: No Influenza Vaccination: No ?: Not Menopausal: Yes Past Surgical History Abdominal Surgery: Yes Appendectomy: Yes Cholecystectomy: Yes Ear Surgery: No Endocrine Surgery: No Eye Surgery: No Genitourinary Surgery: No Gynecologic Surgery: Yes (,D&C-1975,L SALPINGO OOPHORECTOMY) Hysterectomy: No Joint Replacement: No Neurologic Surgery: No Oral Surgery: No Other Surgery: Yes (LYSIS OF ADHESIONS.) Social History Alcohol Use: Yes (0-1/DAY) Tobacco Use: No (QUIT IN 1969) Substance Use: No Allergies-Medications (Allergen,Severity, Reaction): Coded Allergies: diphenhydramine (Unverified Allergy, Severe, Hives, 08/04/17) hydroxyzine (Unverified Allergy, Severe, 08/04/17) loratadine (Unverified Allergy, Severe, Hives, 08/04/17) montelukast (Unverified Allergy, Severe, Hives, 08/04/17) fexofenadine (Unverified Allergy, Intermediate, HIVES, 08/04/17) prednisone (Verified Allergy, Unknown, 08/04/17) Uncoded Allergies: NO CT SCANS (Adverse Reaction, Mild, 05/27/12) Reported Meds & Prescriptions Reported Meds & Active Scripts Active Reported Gabapentin 300 Mg Cap 300 Mg PO QID Losartan (Losartan Potassium) 50 Mg Tab 50 Mg PO BID Bystolic (Nebivolol) 10 Mg Tab 20 Mg PO DAILY Sertraline (Sertraline HCl) 50 Mg Tab 50 Mg PO DAILY Review of Systems Except as stated in HPI: all other systems reviewed are Neg Physical Exam Narrative GENERAL: Well-developed well-nourished, appears younger than stated age, minimal distress. SKIN: Focused skin assessment warm/dry. HEAD: Atraumatic. Normocephalic. Bowel signs no raccoons eyes. EYES: Pupils equal and round. No scleral icterus. No injection or drainage. ENT: No nasal bleeding or discharge. Mucous membranes pink and moist. NECK: Trachea midline. No JVD. CARDIOVASCULAR: Regular rate and rhythm. No murmur appreciated. RESPIRATORY: No accessory muscle use. Clear to auscultation. Breath sounds equal bilaterally. GASTROINTESTINAL: Abdomen soft, non-tender, nondistended. Hepatic and splenic margins not palpable. MUSCULOSKELETAL: No obvious deformities, cannot elicit any tenderness of the left hip by palpation. The patient has significant tenderness on internal and external rotation, no shortening and no resting internal rotation. Small abrasion over the left knee. No bony tenderness the knee. Compartments are soft and the entire left lower extremity. Pulses motor and sensory intact distally in bilateral lower extremities. Patient does have some chronic weakness of the right upper extremity and some numbness and tingling. She states that baseline and prefers I do not examine it. Pulses motor and sensory are intact in the left upper extremity. There is no midline CT or L-spine tenderness. NEUROLOGICAL: Awake and alert. No obvious cranial nerve deficits. Motor grossly within normal limits. Normal speech. PSYCHIATRIC: Appropriate mood and affect; insight and judgment normal. Data Data Last Documented VS Vital Signs Date Time Temp Pulse Resp B/P (MAP) Pulse Ox O2 Delivery O2 Flow Rate FiO2 08/04/17 22:11 16 08/04/17 21:26 102 143/78 (99) 91 Room Air 08/04/17 18:41 98.4 Orders Orders Acetamin-Hydrocod 325-5 Mg ([place] 5-325 (08/04/17 20:45) Hip, Uni(Ap&Lat) W Ap Pelvis (08/04/17 ) Knee, Ltd (1 Or 2vws) (08/04/17 ) Electrocardiogram (08/04/17 21:44) Basic Metabolic Panel (Bmp) (08/04/17 21:44) Complete Blood Count With Diff (08/04/17 21:44) Chest, Single Ap (08/04/17 21:44) Ecg Monitoring (08/04/17 21:44) Iv Access Insert/Monitor (08/04/17 21:44) Oximetry (08/04/17 21:44) Oxygen Administration (08/04/17 21:44) Sodium Chloride 0.9% Flush (Ns Flush) (08/04/17 21:45) Consult Orthopedic (08/04/17 ) (Hub Use Only)Inp Phy Cons/Ref (08/04/17 ) Type And Screen (08/04/17 21:59) Act Partial Throm Time (Ptt) (08/04/17 21:59) Prothrombin Time / Inr (Pt) (08/04/17 21:59) Admit Order (Ed Use Only) (08/04/17 ) Labs Laboratory Tests Test 08/04/17 21:51 White Blood Count 12.2 TH/MM3 Red Blood Count 3.82 MIL/MM3 Hemoglobin 12.5 GM/DL Hematocrit 37.2 % Mean Corpuscular Volume 97.4 FL Mean Corpuscular Hemoglobin 32.7 PG Mean Corpuscular Hemoglobin Concent 33.6 % Red Cell Distribution Width 11.8 % Platelet Count 227 TH/MM3 Mean Platelet Volume 8.4 FL Neutrophils (%) (Auto) 87.7 % Lymphocytes (%) (Auto) 6.5 % Monocytes (%) (Auto) 5.4 % Eosinophils (%) (Auto) 0.3 % Basophils (%) (Auto) 0.1 % Neutrophils # (Auto) 10.7 TH/MM3 Lymphocytes # (Auto) 0.8 TH/MM3 Monocytes # (Auto) 0.7 TH/MM3 Eosinophils # (Auto) 0.0 TH/MM3 Basophils # (Auto) 0.0 TH/MM3 CBC Comment DIFF FINAL Differential Comment Calcium Level 9.2 MG/DL Sodium Level 136 MEQ/L Potassium Level 4.2 MEQ/L Chloride Level 103 MEQ/L Carbon Dioxide Level 22.3 MEQ/L Anion Gap 11 MEQ/L [facility] Medical Decision Making Medical Screen Exam Complete: Yes Emergency Medical Condition: Yes Differential Diagnosis highly suspect femoral neck fracture, knee fracture, hip contusion, knee strain , knee contusion, hip sprain, hip contusion. Narrative Course Patient roomed emergency department, x-rays confirm a left mildly impacted femoral neck fracture. X-ray of the knee negative. His chest results with the patient as well as Dr. Weinberg's ERNSETO Pastrana. Recommendations are for transfer up to the main hospital for surgical intervention the morning. Preoperative labs been ordered as well as chest x-ray and EKG. EKG is nonischemic. Chest x- ray shows no acute cardiopulmonary abnormality. Chest x-ray read pending at this time. Diagnosis Primary Impression: Femoral neck fracture Qualified Codes: S72.001A - Fracture of unspecified part of neck of right femur, initial encounter for closed fracture Admitting Information Admitting Physician Requests: Admit Condition: Stable Js Cespedes MD Aug 04, 2017 19:48
[2017-08-04] MEDS ORDERED: ACETAMINOPHEN/HYDROcodone 325 MG/5 MG TAB PO ONE (20:45)
[2017-08-04 21:26] VITALS: BP 143/78; PULSE 102; RESP 16; O2SAT 91
--- NOTE | 2017-08-04 21:28 | RADRPT ---
EXAM DATE/TIME: 08/04/2017 21:00 [place] COMPARISON: No previous studies available for comparison. INDICATIONS : Left knee pain after falling today. MEDICAL HISTORY : Hypertension. Renal insufficiency, chronic. SURGICAL HISTORY : Discectomy, lumbar. ENCOUNTER: Initial ACUITY: 1 day PAIN SCORE: 3/10 LOCATION: Left knee. FINDINGS: Two view examination of the left knee demonstrates no evidence of fracture or dislocation. Bony mine ralization is normal. Mild osteoarthritis. The suprapatellar soft tissues have a normal configuratio n. CONCLUSION: Mild osteoarthritis without fracture. Kelechi Walker MD on August 04, 2017 at 21:25 Board Certified Radiologist. This report was verified electronically.
--- NOTE | 2017-08-04 21:28 | RADRPT ---
EXAM DATE/TIME: 08/04/2017 21:00 [facility] COMPARISON: No previous studies available for comparison. INDICATIONS : Left hip pain after falling today. MEDICAL HISTORY : Hypertension. Renal insufficiency, chronic. SURGICAL HISTORY : Discectomy, lumbar. ENCOUNTER: Initial ACUITY: 1 day PAIN SCORE: 10/10 LOCATION: Left hip. FINDINGS: Examination of the left hip was performed with AP Pelvis. The suspected impacted left femoral neck f racture. The acetabulum is grossly intact. CONCLUSION: Suspect impacted left femoral neck fracture. Kelechi Walker MD on August 04, 2017 at 21:24 Board Certified Radiologist. This report was verified electronically.
[2017-08-04] MEDS ORDERED: SODIUM CHLORIDE 0.9% FLUSH 10 ML FLUSH IVF PRN (21:45)
--- NOTE | 2017-08-04 22:12 | RADRPT ---
EXAM DATE/TIME: 08/04/2017 22:02 [facility] COMPARISON: CHEST SINGLE AP, March 09, 2017, 6:07. INDICATIONS : Evaluate lung status. Patient fell tonight. MEDICAL HISTORY : Hypertension. Renal insufficiency, chronic. SURGICAL HISTORY : Discectomy, lumbar. ENCOUNTER: Initial ACUITY: 1 day PAIN SCORE: 0/10 LOCATION: Bilateral chest FINDINGS: A single view of the chest demonstrates the lungs to be symmetrically aerated without evidence of mas s, infiltrate or effusion. Elevation right hemidiaphragm unchanged. Calcified granuloma and mediastin al calcified lymph nodes. Bibasilar scarring versus subsegmental atelectasis. The cardiomediastinal contours are unremarkable. Osseous structures are intact. CONCLUSION: 1. Bibasilar scarring versus subsegmental atelectasis. 2. Previous disease. 3. Eventration right hemidiaphragm. Kelechi Walker MD on August 04, 2017 at 22:09 Board Certified Radiologist. This report was verified electronically.
[2017-08-04 22:17] LABS: AUTOMATED NEUTROPHIL # 10.7 TH/MM3 (1.8-7.7); BASOPHIL % 0.1 % (0.0-2.0); EOSINOPHIL % 0.3 % (0.0-4.0); HEMATOCRIT 37.2 % (35.0-46.0); HEMOGLOBIN 12.5 GM/DL (11.6-15.3); LYMPH % 6.5 % (9.0-44.0); LYMPHOCYTE # 0.8 TH/MM3 (1.0-4.8); MEAN CELL VOLUME 97.4 FL (80.0-100.0); MEAN CORPUSCULAR HEMOGLOBIN 32.7 PG (27.0-34.0); MEAN CORPUSCULAR HGB CONC 33.6 % (32.0-36.0); MEAN PLATELET VOLUME 8.4 FL (7.0-11.0); MONO % 5.4 % (0.0-8.0); MONOCYTE # 0.7 TH/MM3 (0-0.9); NEUT % 87.7 % (16.0-70.0); PLATELET COUNT 227 TH/MM3 (150-450); RED BLOOD COUNT 3.82 MIL/MM3 (4.00-5.30); RED CELL DISTRIBUTION WIDTH 11.8 % (11.6-17.2); WHITE BLOOD COUNT 12.2 TH/MM3 (4.0-11.0)
[2017-08-04 22:27] LABS: CALCIUM 9.2 MG/DL (8.5-10.1)
[2017-08-04 22:28] LABS: BICARBONATE 22.3 MEQ/L (21.0-32.0)
[2017-08-04] MEDS ORDERED: NALOXONE HCL 0.4 MG/ML AMP IV PUSH PRN (22:30)
[2017-08-04] MEDS ORDERED: LACTULOSE SYRUP 20 GM/30 ML CUP PO PRN (22:30)
[2017-08-04] MEDS ORDERED: BISACODYL 10 MG SUPP RECTAL PRN (22:30)
[2017-08-04] MEDS ORDERED: SODIUM CHLORIDE 0.9% FLUSH 10 ML FLUSH IV FLUSH PRN (22:30)
[2017-08-04] MEDS ORDERED: MAGNESIUM HYDROXIDE SUSP 30 ML CUP PO PRN (22:30)
[2017-08-04] MEDS ORDERED: ACETAMINOPHEN 325 MG TAB PO PRN (22:30)
[2017-08-04] MEDS ORDERED: ONDANSETRON HCL 4 MG/2 ML VIAL IVP PRN (22:30)
[2017-08-04] MEDS ORDERED: MORPHINE SULFATE 2 MG/ML INJ IV PUSH PRN (22:30)
[2017-08-04] MEDS ORDERED: SENNOSIDES 8.6 MG TAB PO PRN (22:30)
[2017-08-04 22:31] LABS: CREATININE 1.5 MG/DL (0.50-1.00); INTERNATIONAL NORMALIZED RATIO 1.1 RATIO
[2017-08-04 22:40] VITALS: RESP 16; O2SAT 93
[2017-08-04] MEDS: SODIUM CHLOR 0.9% 1000 ML INJ 1,000 ML IV SCH (22:42)
[2017-08-05] VITALS (7 sets, daily range): BP systolic 98–142; BP diastolic 54–70; PULSE 81–109; RESP 16–20; TEMP 96.3–98.9; O2SAT 92–97
[2017-08-05] MEDS ORDERED: SODIUM CHLORID 0.9% 500 ML IV PRN (01:15)
[2017-08-05] MEDS ORDERED: CHLORHEXIDINE GLUCONATE 2 % 1 PACK (2 CLOTHS) TOPICAL PRN (01:15)
[2017-08-05] MEDS ORDERED: POVIDONE IODINE 5% (ANTISEPSIS KIT) 4 APPLICATIONS EACH NARE PRN (01:15)
[2017-08-05] MEDS ORDERED: LACTATED RINGER'S 1000 ML IV PRN (01:15)
[2017-08-05] MEDS ORDERED: MORPHINE SULFATE 2 MG/ML INJ IV PUSH PRN (03:00)
[2017-08-05] MEDS ORDERED: GABAPENTIN 300 MG CAP PO ONE (03:30)
--- NOTE | 2017-08-05 03:53 | HHI.HP ---
[facility] Primary Care Physician Dell Soliz MD Admission Diagnosis Left Femoral Neck Fracture. Diagnoses: Chief Complaint: fall, left hip pain Travel History International Travel<30 Days: No Contact w/Intl Traveler <30 Da: No Traveled to Known Affected Are: No History of Present Illness 82-year-old female with history of hypertension, CKD stage III, chronic colitis , arthritis, anxiety/depression, and postherpetic neuralgia s/p shingles of RUE , presents with left hip pain s/p fall that occurred on 08/04/16 at 4pm. 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 Denies hitting her head or any loss of consciousness. She reports immediate left hip pain after the fall, worse at the left anterior groin with radiation throughout the left hip and down the left thigh, described as constant 10/10 pain, worse with any movement. She was not able to ambulate after the fall. She flagged down a neighbor who then alerted her , and they were able to get her into the vehicle to bring her to the [facility] ER. Denies any chest pain, palpitations, or shortness of breath associated with the fall. She states she did get dizzy earlier in the day but it went away on its own. She states she has occasional dizziness which she attributes to her gabapentin. She has been on gabapentin since January2017 when she had shingles of the right arm. Since her arrival to the ER, left hip x-ray showed impacted left femoral neck fracture. [facility] discussed with orthopedics Victoriano Cheung PA-C who recommended transfer to [facility] for surgical intervention in the am. The patient was given [place] with moderate relief of her pain. She would like to avoid narcotics as much as possible and does not want any IV morphine. She is requesting her gabapentin be continued. She is agreeable to short term rehab after surgery if necessary. Prior to the fall, she ambulated independently without any assist device. Review of Systems Except as stated in HPI: all other systems reviewed are Neg Past Family Social History Past Medical History hypertension CKD stage III chronic colitis arthritis anxiety depression postherpetic neuralgia s/p shingles of RUE deaf right ear back pain/herniated discs endometriosis Past Surgical History Cholecystectomy Appendectomy D&C in 1975 Left salpingo-oophorectomy Lysis of adhesions Lumbar discectomy 2 Reported Medications Gabapentin 300 Mg Cap 300 Mg PO QID Losartan (Losartan Potassium) 50 Mg Tab 50 Mg PO BID Bystolic (Nebivolol) 10 Mg Tab 20 Mg PO DAILY Sertraline (Sertraline HCl) 50 Mg Tab 50 Mg PO DAILY Allergies: Coded Allergies: diphenhydramine (Unverified Allergy, Severe, Hives, 08/04/17) hydroxyzine (Unverified Allergy, Severe, 08/04/17) loratadine (Unverified Allergy, Severe, Hives, 08/04/17) montelukast (Unverified Allergy, Severe, Hives, 08/04/17) fexofenadine (Unverified Allergy, Intermediate, HIVES, 08/04/17) prednisone (Verified Allergy, Unknown, 08/04/17) Uncoded Allergies: NO CT SCANS (Adverse Reaction, Mild, 05/27/12) Active Ordered Medications Current Medications Medications (Trade) Dose Ordered Sig/Levy Route Start Time Stop Time Status Last Admin Sodium Chloride 1,000 ml @ 75 mls/hr [id number] IV 08/04/17 22:27 08/04/17 22:42 (NS Flush) 2 ml UNSCH PRN IV FLUSH 08/04/17 22:30 (NS Flush) 2 ml BID IV FLUSH 08/05/17 09:00 (Tylenol) 650 mg Q4H PRN PO 08/04/17 22:30 (Zofran Inj) 4 mg Q6H PRN IVP 08/04/17 22:30 (Narcan Inj) 0.4 mg UNSCH PRN IV PUSH 08/04/17 22:30 (Thania-Colace) 1 tab BID PO 08/05/17 09:00 (Milk Of Magnesia Liq) 30 ml Q12H PRN PO 08/04/17 22:30 (Senokot) 17.2 mg Q12H PRN PO 08/04/17 22:30 (Dulcolax Supp) 10 mg DAILY PRN RECTAL 08/04/17 22:30 (Lactulose Liq) 30 ml DAILY PRN PO 08/04/17 22:30 (Neurontin) 300 mg Q12HR PO 08/05/17 09:00 (Cozaar) 50 mg BID PO 08/05/17 09:00 (Bystolic) 20 mg DAILY PO 08/05/17 09:00 (Zoloft) 50 mg DAILY PO 08/05/17 09:00 Lactated Ringer's 1,000 ml @ 30 mls/hr Q24H PRN IV 08/05/17 01:15 08/08/17 01:14 Sodium Chloride 500 ml @ 30 mls/hr [id number] PRN IV 08/05/17 01:15 08/08/17 01:14 (Betadine 5% Antisepsis Kit) 1 applic CATHODE RAY [employer]UBE ASSEMBLER PRN EACH NARE 08/05/17 01:15 08/08/17 01:14 (Chlorhexidine 2% Cloth) 3 pack CATHODE RAY [employer]SEM[employer]ER PRN TOPICAL 08/05/17 01:15 08/08/17 01:14 ([place] 5-325 Mg) 1 tab Q4H PRN PO 08/05/17 03:00 ([place] 7.5-325 Mg) 1 tab Q4H PRN PO 08/05/17 03:00 (Morphine Inj) 2 mg Q3H PRN IV PUSH 08/05/17 03:00 Family History Denies any significant family history of heart disease, stroke, diabetes, or cancers. Social History Prior tobacco use, one PPD from age [age], quit in [age] Previously occasional alcohol use, but none since January 2017 after starting on gabapentin Denies any illicit drug use Lives at home with her Ambulates independently Physical Exam Vital Signs Vital Signs Date Time Temp Pulse Resp B/P (MAP) Pulse Ox O2 Delivery O2 Flow Rate FiO2 08/05/17 00:45 98.7 109 20 135/69 (91) 92 08/04/17 22:40 16 93 Room Air 08/04/17 22:40 93 Room Air 08/04/17 22:11 16 08/04/17 21:26 102 16 143/78 (99) 91 Room Air 08/04/17 18:41 98.4 94 18 204/78 120 91 Physical Exam GENERAL: Well-nourished, well-developed pleasant elderly female patient in NAD. SKIN: Warm and dry. No rash. HEAD: Normocephalic. Atraumatic. EYES: Pupils equal and round. No scleral icterus. No injection or drainage. ENT: No nasal bleeding or discharge. Mucous membranes pink and moist. NECK: Supple. Trachea midline. CARDIOVASCULAR: Regular rate and rhythm. S1, S2 noted. No murmur appreciated. RESPIRATORY: No accessory muscle use. Clear to auscultation. Breath sounds equal bilaterally. GASTROINTESTINAL: Abdomen soft, non-tender, nondistended. Normoactive bowel sounds x4. MUSCULOSKELETAL: No obvious deformities. Extremities without clubbing, cyanosis , or edema. Diffuse left hip pain tenderness to palpation. ROM/strength testing of left hip deferred with known fracture. NEUROLOGICAL: Awake and alert. No obvious cranial nerve deficits. Motor grossly within normal limits. 5/5 muscle strength in bilateral upper extremities , 5/5 strength with bilateral plantar/dorsiflexion. Normal speech. PSYCHIATRIC: Appropriate mood and affect; insight and judgment normal. Laboratory Laboratory Tests Test 08/04/17 21:51 White Blood Count 12.2 Red Blood Count 3.82 Hemoglobin 12.5 Hematocrit 37.2 Mean Corpuscular Volume 97.4 Mean Corpuscular Hemoglobin 32.7 Mean Corpuscular Hemoglobin Concent 33.6 Red Cell Distribution Width 11.8 Platelet Count 227 Mean Platelet Volume 8.4 Neutrophils (%) (Auto) 87.7 Lymphocytes (%) (Auto) 6.5 Monocytes (%) (Auto) 5.4 Eosinophils (%) (Auto) 0.3 Basophils (%) (Auto) 0.1 Neutrophils # (Auto) 10.7 Lymphocytes # (Auto) 0.8 Monocytes # (Auto) 0.7 Eosinophils # (Auto) 0.0 Basophils # (Auto) 0.0 CBC Comment DIFF FINAL Differential Comment Prothrombin Time 11.0 Prothromb Time International Ratio 1.1 Activated Partial Thromboplast Time 25.4 Blood Urea Nitrogen 27 Creatinine 1.50 Random Glucose 113 Calcium Level 9.2 Sodium Level 136 Potassium Level 4.2 Chloride Level 103 Carbon Dioxide Level 22.3 Anion Gap 11 Estimat Glomerular Filtration Rate 33 Result Diagram: 08/04/17215008/04/172150 Imaging Last Impressions Chest X-Ray 08/04/172143 Signed Impressions: Service Date/Time: Friday, August 04, 2017 22:02 - CONCLUSION: 1. Bibasilar scarring versus subsegmental atelectasis. 2. Previous disease. 3. Eventration right hemidiaphragm. Kelechi Walker MD Knee X-Ray 08/04/17 0000 Signed Impressions: Service Date/Time: Friday, August 04, 2017 21:00 - CONCLUSION: Mild osteoarthritis without fracture. Kelechi Walker MD Hip and Pelvis X-Ray 08/04/17 0000 Signed Impressions: Service Date/Time: Friday, August 04, 2017 21:00 - CONCLUSION: Suspect impacted left femoral neck fracture. MD Mikel Bunch VTE Risk Assessment Mikel VTE Risk Assessment: Mod/High Risk (score >= 2) Caprini Risk Assessment Model Point Value = 1 Point Value = 2 Point Value = 3 Point Value = 5 Age 41-60 Minor surgery BMI > 25 kg/m2 Swollen legs Varicose veins or History of unexplained or recurrent spontaneous Oral contraceptives or hormone replacement Sepsis (< 1 month) Serious lung disease, including pneumonia (< 1 month) Abnormal pulmonary function Acute myocardial infarction Congestive heart failure (< 1 month) History of inflammatory bowel disease Medical patient at bed rest Age 61-74 Arthroscopic surgery Major open surgery (> 45 min) Laparoscopic surgery (> 45 min) Malignancy Confined to bed (> 72 hours) Immobilizing plaster cast Central venous access Age >= 75 History of VTE Family history of VTE Factor V Leiden Prothrombin [id number] Lupus anticoagulant Anticardiolipin antibodies Elevated serum homocysteine Heparin-induced thrombocytopenia Other congenital or acquired thrombophilia Stroke (< 1 month) Elective arthroplasty Hip, pelvis, or leg fracture Acute spinal cord injury (< 1 month) Prophylaxis Regimen Total Risk Factor Score Risk Level Prophylaxis Regimen 0-1 Low Early ambulation 2 Moderate Order ONE of the following: *Sequential Compression Device (SCD) *Heparin 5000 units SQ BID 3-4 Higher Order ONE of the following medications: *Heparin 5000 units SQ TID *Enoxaparin/Lovenox 40 mg SQ daily (WT < 150 kg, CrCl > 30 mL/min) *Enoxaparin/Lovenox 30 mg SQ daily (WT < 150 kg, CrCl > 10-29 mL/min) *Enoxaparin/Lovenox 30 mg SQ BID (WT < 150 kg, CrCl > 30 mL/min) AND/OR *Sequential Compression Device (SCD) 5 or more Highest Order ONE of the following medications: *Heparin 5000 units SQ TID (Preferred with Epidurals) *Enoxaparin/Lovenox 40 mg SQ daily (WT < 150 kg, CrCl > 30 mL/min) *Enoxaparin/Lovenox 30 mg SQ daily (WT < 150 kg, CrCl > 10-29 mL/min) *Enoxaparin/Lovenox 30 mg SQ BID (WT < 150 kg, CrCl > 30 mL/min) AND *Sequential Compression Device (SCD) Assessment and Plan Problem List: (1) Femoral neck fracture ICD Code: S72.009A - Fracture of unspecified part of neck of unspecified femur , initial encounter for closed fracture Status: Acute (2) HTN (hypertension) ICD Code: I10 - Essential (primary) hypertension Status: Acute Assessment and Plan 82-year-old female with history of hypertension, CKD stage III, chronic colitis , arthritis, anxiety/depression, and postherpetic neuralgia s/p shingles of RUE , presents with left hip pain s/p fall that occurred on 08/04/16 at 4pm. Left hip fracture: Left hip x-ray images reviewed, shows impacted left femoral neck fracture. Patient previously ambulatory without any assist device. -Pain control with [place] prn -Keep NPO -Orthopedics consulted, plans for surgical intervention -Case management to assist with discharge planning Dizziness: denies any current dizziness however did experience dizziness after leaning forward just prior to fall. Patient reports intermittent dizziness since starting on gabapentin in January. She states her dose was increased from 300mg qid to 400mg qid, however she became drowsy and dizzy therefore she went back to the 300mg qid dosing a few weeks ago. -suspect dizziness combination of gabapentin and position changes -decrease gabapentin from 300mg qid to 300mg bid -check orthostatics from lying to sitting (unable to stand patient secondary to fracture as above) -will need PT consult post surgery Hypertension: Chronic, BP appears fairly well controlled. -Continue patient's losartan and bystolic -Monitor BP, adjust antihypertensives as needed. CKD, stage III: Cr 1.5, appears at patient's baseline -avoid nephrotoxins -monitor renal functions Postherpetic Neuralgia: s/p ederglarslan January2017 -continue patient's gabapentin at lower dose of 300mg bid -patient follows with neurologist Dr. Hurley as outpatient Anxiety/Depression: chronic, stable -continue patient's sertraline DVT Prophylaxis: teds/SCDs to the nonoperative leg; avoid chemoprophylaxis for now with upcoming surgery; defer to ortho for anticoagulation post surgery Discussed Condition With Patient, RN Physician Certification 2 Midnight Certification Type: Admission for Inpatient Services Order for Inpatient Services The services are ordered in accordance with Medicare regulations or non- Medicare payer requirements, as applicable. In the case of services not specified as inpatient-only, they are appropriately provided as inpatient services in accordance with the 2-midnight benchmark. Estimated LOS (days): 3 days is the estimated time the patient will need to remain in the hospital, assuming treatment plan goals are met and no additional complications. Post-Hospital Plan: SNF Problem Qualifiers (1) Femoral neck fracture: Qualified Codes: S72.001A - Fracture of unspecified part of neck of right femur , initial encounter for closed fracture Nancy White PA-C Aug 05, 2017 3:53 am
[2017-08-05 06:03] LABS: AUTOMATED NEUTROPHIL # 8.9 TH/MM3 (1.8-7.7); BASOPHIL # 0.1 TH/MM3 (0-0.2); BASOPHIL % 0.5 % (0.0-2.0); EOSINOPHIL # 0.1 TH/MM3 (0-0.4); EOSINOPHIL % 0.8 % (0.0-4.0); HEMATOCRIT 33.7 % (35.0-46.0); HEMOGLOBIN 11.4 GM/DL (11.6-15.3); LYMPH % 11.6 % (9.0-44.0); LYMPHOCYTE # 1.3 TH/MM3 (1.0-4.8); MEAN CELL VOLUME 99.2 FL (80.0-100.0); MEAN CORPUSCULAR HEMOGLOBIN 33.5 PG (27.0-34.0); MEAN CORPUSCULAR HGB CONC 33.8 % (32.0-36.0); MEAN PLATELET VOLUME 8.5 FL (7.0-11.0); MONO % 6.9 % (0.0-8.0); MONOCYTE # 0.8 TH/MM3 (0-0.9); NEUT % 80.2 % (16.0-70.0); PLATELET COUNT 203 TH/MM3 (150-450); RED CELL DISTRIBUTION WIDTH 12.4 % (11.6-17.2); WHITE BLOOD COUNT 11.1 TH/MM3 (4.0-11.0)
[2017-08-05 06:18] LABS: CALCIUM 9.1 MG/DL (8.5-10.1); CREATININE 1.49 MG/DL (0.50-1.00)
--- NOTE | 2017-08-05 06:36 | PD.ORT.PN ---
Subjective Subjective Remarks s/p fall at home left hip pain Objective Vitals Vital Signs Date Time Temp Pulse Resp B/P (MAP) Pulse Ox O2 Delivery O2 Flow Rate FiO2 08/05/17 04:00 98.9 101 20 98/57 (71) 92 08/05/17 00:45 98.7 109 20 135/69 (91) 92 08/04/17 22:40 16 93 Room Air 08/04/17 22:40 93 Room Air 08/04/17 22:11 16 08/04/17 21:26 102 16 143/78 (99) 91 Room Air 08/04/17 18:41 98.4 94 18 204/78 (120) 91 I/O 08/04/17 08/04/17 08/04/17 08/05/17 08/05/17 08/05/17 07:00 15:00 23:00 07:00 15:00 23:00 Intake Total 243 ml Balance 243 ml Intake IV Total 243 ml Result Diagram: 08/05/17 0425 08/05/17 0425 Other Results Laboratory Tests Test 08/04/17 21:51 Prothromb Time International Ratio 1.1 RATIO Prothrombin Time 11.0 SEC (9.8-11.6) Imaging Last 24 hours Impressions Chest X-Ray 08/04/174 Signed Impressions: Service Date/Time: Friday, August 04, 2017 22:02 - CONCLUSION: 1. Bibasilar scarring versus subsegmental atelectasis. 2. Previous disease. 3. Eventration right hemidiaphragm. Kelechi Walker MD Objective Remarks LLE: pain in hip with motion. nvi Assessment & Plan Assessment and Plan 1) Left Femoral Neck Fx -npo -sign consents -surgery today Victoriano Cheung/Counselor Aid PA Aug 05, 2017 06:36
[2017-08-05] MEDS ORDERED: VITA500012 PO (06:38)
[2017-08-05] MEDS ORDERED: CALCTAB19 PO (06:38)
[2017-08-05] MEDS ORDERED: XARE10TA PO (06:38)
[2017-08-05] MEDS ORDERED: VITA2000 PO (06:38)
[2017-08-05] MEDS ORDERED: HYDR-3580 PO (06:38)
[2017-08-05] MEDS ORDERED: WALKER/ADULT/FO1 MIS (06:38)
--- NOTE | 2017-08-05 07:38 | MB ---
cc: SONALI ZIMMERMAN,ROCIO DATE OF CONSULTATION 08/05/[address] Rocio Virk HISTORY Yeimy is an 82-year-old female who has a history of hypertension, renal failure, anxiety and shingles. She had a fall yesterday afternoon. She had immediate left hip pain. She was unable to stand or ambulate. She was going outside to get her mail. She dropped some of the mail. 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 She did have some slight dizziness. She denies loss of consciousness. She had immediate left hip pain. She presented to the emergency room where x-rays revealed a left hip impacted femoral neck fracture. She is currently awake and alert on the orthopedic floor. Her only complaint is her left hip. Pain is worse with movement. She has minimal pain at rest. PAST MEDICAL HISTORY Illnesses: 1. Hypertension 2. Renal failure 3. Colitis 4. Anxiety 5. Depression 6. Shingles 7. Hearing loss 8. Degenerative disease 9. Endometriosis SURGERIES 1. Cholecystectomy 2. Appendectomy 3. Oophorectomy 4. Lumbar diskectomy MEDICATIONS Include: 1. Gabapentin 2. Losartan 3. Bystolic 4. Sertraline ALLERGIES DIPHENYDRAMINE, HYDROXYZINE, LORATADINE, MONTELUKAST, PREDNISONE, FEXOFENADINE. MEDICATIONS Please EMR for a complete list of inpatient medications. FAMILY HISTORY Noncontributory. She denies any familial medical problems. SOCIAL HISTORY The patient quit smoking many years ago. She rarely drinks alcohol. She denies drug use. She lives at home with her . REVIEW OF SYSTEMS The patient denies headache, visual changes, neck pain, chest pain, shortness of breath, abdominal pain, nausea or recent weight loss, fevers or chills, bowel or bladder incontinence or numbness or tingling of extremities. She complains of left hip pain, pain is worse with movement. PHYSICAL EXAMINATION The patient is a pleasant 82-year-old female. She is in no acute distress. She is awake and alert. VITAL SIGNS: Temperature 98.1, pulse 101, respirations 20, blood pressure 98/57, O2 sat 90% room air. HEAD: The patient is normocephalic. EYES: Pupils are equal. NECK: Soft and nontender. Trachea is midline. ABDOMEN: Soft, nontender, nondistended. EXTREMITIES: Examination of the bilateral upper extremities reveals no pain with shoulder or wrist motion. She has intact sensation in all fingers bilaterally. The radial pulses are palpable. Skin is intact to both hands. Examination of right leg reveals no pain with hip, knee or ankle motion. Skin is intact. Dorsalis pedis pulses palpable. Sensation is intact. Skin is intact. Examination of left leg reveals pain with any hip motion. She has no tenderness her knee tibia or ankle. Skin is intact. Dorsalis pedis pulses palpable. Sensation is intact. X-RAYS X-rays of the left hip were reviewed. X-rays reveal an impacted left femoral neck fracture. IMPRESSION 1. Impacted left femoral neck fracture. 2. Probable osteoporosis 3. Hypertension 4. Renal failure PLAN Treatment options were discussed with the patient. At this point, I would recommend left hip pinning. I explained to her that if her fracture displaces, she may need left hip hemiarthroplasty. The risks of surgery include bleeding, infection, injury to arteries, nerves and blood vessels, nonunion, malunion, avascular necrosis, need for hip replacement, as well as medical complications including blood clot, stroke, heart attack and . All questions were answered. I will plan on surgery today. A mid-level provider in my office, nurse practitioner or PA, may see this patient on a follow-up basis and continue to implement the objective of this plan including: Starting or adjusting medications, injections of muscle, tendon, bursa or joints, cast application, orthotic or brace application, physical therapy, further radiographic studies including x-ray, MRI, CT, ultrasounds or bone scan, vascular studies, neurologic studies, or other specialist consultations, and proceeding with surgical management as appropriate. MD VAUGHN Michelle/JOHNNIE /6:56 AM /7:15 AM
[2017-08-05] MEDS: NEBIVOLOL 10 MG TAB PO SCH (08:02)
[2017-08-05] MEDS: LOSARTAN 50 MG TAB PO SCH ×2 (08:03→21:47)
[2017-08-05] MEDS: DOCUSATE SODIUM 50 MG/SENNA 8.6 MG TAB PO SCH ×3 (08:03→21:51)
[2017-08-05] MEDS: SODIUM CHLORIDE 0.9% FLUSH 10 ML FLUSH IV FLUSH SCH ×2 (08:03→21:48)
[2017-08-05] MEDS: GABAPENTIN 300 MG CAP PO SCH ×2 (08:03→21:47)
[2017-08-05] MEDS: SERTRALINE HCL 50 MG TAB PO SCH (08:03)
[2017-08-05] MEDS: ACETAMINOPHEN/HYDROcodone 325 MG/5 MG TAB PO PRN ×2 (09:00→23:12)
[2017-08-05] MEDS ORDERED: ACETAMINOPHEN 1000 MG/100 ML 100 ML IV ONE (10:03)
--- NOTE | 2017-08-05 10:10 | EKG ---
Date Performed: 08/04/2017 Time Performed: 21:57:14 PTAGE: 82 years EKG: ECTOPIC ATRIAL TACHYCARDIA WITH SHORT OK INTERVAL ABNORMAL RHYTHM ECG PREVIOUS TRACING : 04/17/2017 13.26 DOCTOR: Adam Driscoll Interpretating Date/Time 08/05/2017 10:09:04
[2017-08-05] MEDS ORDERED: ceFAZolin INJ 1,000 MG VIAL ONE (10:42)
[2017-08-05] MEDS ORDERED: VANCOMYCIN HCL 1000 MG VIAL ONE (10:43)
[2017-08-05] MEDS ORDERED: GENTAMICIN SULFATE 80 MG/2 ML VIAL ONE (10:43)
[2017-08-05] MEDS ORDERED: BUPIVACAINE/EPINEPHRINE 0.25% PF 30 ML VIAL ONE (10:43)
--- NOTE | 2017-08-05 11:10 | PD.OP ---
cc: Vasiliy Weinberg MD Operative Report Date of Surgery: Aug 05, 2017 Preoperative Diagnosis: Impacted left femoral neck fracture Postoperative Diagnosis: Procedure: Left hip pinning Anesthesia: Gen. Surgeon: Vasiliy Weinberg Benefits Officer(s): ELADIA Rao PA-C The surgical procedure was assisted by my physician public services assistant. My P.A. presence was necessary throughout this case for the manipulation and positioning of the surgical extremity. My P.A. was assisting me throughout the duration of this procedure. The skill set of a physician public services assistant was medically necessary to complete this procedure. During the surgical case the surgical scheduler was working at the back table and the physician public services assistant was directly assisting me. Operation and Findings: Plan of activity: TTWB x3 wks, then 50% weightbearing 3 weeks Patient was seen and evaluated preoperatively. The patient has significant hip pain from impacted femoral neck fracture. The risk and benefits of surgery were discussed in depth with the patient to include bleeding infection nonunion malunion, avascular necrosis and need for hip replacement painful hardware as well as medical competitions including but not stroke heart attack and . Informed consent was obtained. Operative site was marked. Patient was brought to the operating room and placed on fracture table. IV sedation was administered by anesthesiologist. Timeout procedure was performed. Hip and leg were prepped with alcohol followed by Hibiclens and draped in the usual sterile fashion. IV antibiotics were given prior to incision. Procedure began with evaluation of fracture under fluoroscopy. Fluoroscopy was used to confirm reduction. The fracture appeared to be relatively stable with impaction. A three cm incision was along the lateral aspect of the proximal femur. Subcutaneous tissue was dissected bluntly. Three guidepins were placed through the lateral cortex of the proximal femur. Guide pins were placed in an inverted triangle position. Guide pins were advanced across the fracture site into the femoral head. Fluoroscopy confirmed appropriate guidepin placement. The screw lengths were measured. A cannulated drill was placed over each of the guide pins. Appropriate length ITS 6.5mm cannulated screws were placed over the guidepins. Good compression was applied across the fracture. Final fluoroscopy revealed well aligned fracture with well-placed hardware. Incision was closed with 3-0 Vicryl and kwasi. Sterile dressings were applied. Patient was awakened and transferred to recovery room. Vasiliy Weinberg MD Aug 05, 2017 11:10
[2017-08-05] MEDS ORDERED: ERGOCALCIFEROL (VIT D2) 50,000 UNIT CAP PO ONE (11:45)
[2017-08-05] MEDS: SODIUM CHLOR 0.9% 1000 ML INJ 1,000 ML IV SCH (11:47)
--- NOTE | 2017-08-05 11:51 | RADRPT ---
EXAM DATE/TIME: 08/05/2017 11:38 [facility] COMPARISON: No previous studies available for comparison. INDICATIONS : ORIF left hip fracture. MEDICAL HISTORY : Unobtainable. SURGICAL HISTORY : Unobtainable. ENCOUNTER: Subsequent ACUITY: 1 day PAIN SCORE: Non-responsive. LOCATION: Left hip FINDINGS: Anatomic alignment following pinning left hip. CONCLUSION: Anatomic alignment. Lorenzo Hemphill MD FACR on August 05, 2017 at 11:48 Board Certified Radiologist. This report was verified electronically.
[2017-08-05] MEDS ORDERED: DO NOT ADM ANY ANTICOAGULANT DRUGS PRN (11:58)
[2017-08-05] MEDS ORDERED: DEXAMETHASONE SOD PHOS 4 MG/ML VIAL IV ONE (12:00)
[2017-08-05] MEDS ORDERED: LIDOCAINE HCL 1% PF 5 ML SYRINGE OTHER ONE (12:00)
[2017-08-05] MEDS ORDERED: *Lactated Ringer's INJ 1,000 ML IV ONE (12:00)
[2017-08-05] MEDS ORDERED: ePHEDrine/NS 25 MG/5 ML SYRINGE IV ONE (12:00)
[2017-08-05] MEDS ORDERED: PHENYLEPH/NS 1000 MCG/10 ML SYR IV ONE (12:00)
[2017-08-05] MEDS ORDERED: PROPOFOL 200 MG/20 ML AMP IV ONE (12:00)
[2017-08-05] MEDS ORDERED: ONDANSETRON HCL 4 MG/2 ML VIAL IV PUSH ONE (12:00)
[2017-08-05] MEDS ORDERED: Post-op Orders (for Pharmacy) XX ONE (12:15)
--- NOTE | 2017-08-05 14:57 | HHI.PR ---
Subjective Remarks Follow-up for left hip fracture/dizziness Patient stated that dizziness occurred yesterday. She stated that it occurred while leaning forward. Admits to having allergies/sinus his problems. Patient says she is allergic to antihistamines. Patient stated that she had Flonase in the past and did not have any allergic reaction to the medication. Otherwise she is asymptomatic. Patient seen in PACU. She has no other complaints or concerns. Objective Vitals Vital Signs Date Time Temp Pulse Resp B/P (MAP) Pulse Ox O2 Delivery O2 Flow Rate FiO2 08/05/17 13:04 98.1 92 17 109/54 (72) 99 Nasal Cannula 3 08/05/17 12:45 99 17 108/55 (72) 99 Nasal Cannula 2 08/05/17 12:30 101 16 117/56 (76) 99 Nasal Cannula 1.5 08/05/17 12:15 106 16 118/58 (78) 99 Nasal Cannula 3 08/05/17 12:00 96.3 98 16 101/54 (70) 94 08/05/17 11:58 98.1 105 16 125/58 (80) 99 Nasal Cannula 3 08/05/17 08:00 96.8 97 16 102/55 (71) 92 08/05/17 08:00 123/62 (82) 08/05/17 04:00 98.9 101 20 98/57 (71) 92 08/05/17 00:45 98.7 109 20 135/69 (91) 92 08/04/17 22:40 16 93 Room Air 08/04/17 22:40 93 Room Air 08/04/17 22:11 16 08/04/17 21:26 102 16 143/78 (99) 91 Room Air 08/04/17 18:41 98.4 94 18 204/78 (120) 91 I/O 08/04/17 08/04/17 08/04/17 08/05/17 08/05/17 08/05/17 07:00 15:00 23:00 07:00 15:00 23:00 Intake Total 243 ml 1190 ml Output Total 5 ml Balance 243 ml 1185 ml Intake IV Total 243 ml 190 ml Other 1000 ml Output Estimated Blood Loss 5 ml Result Diagram: 08/05/17 0425 08/05/17 0425 Objective Remarks GENERAL: in NAD CARDIOVASCULAR: Regular rate and rhythm without murmurs, gallops, or rubs. RESPIRATORY: Breath sounds equal bilaterally. No accessory muscle use. GASTROINTESTINAL: Abdomen soft, non-tender, nondistended. MUSCULOSKELETAL: No cyanosis, or edema. BACK: Nontender without obvious deformity. No CVA tenderness. Medications and IVs Current Medications Acetaminophen/ Hydrocodone Bitart ([place] 5-325 Mg) 2 tab ONCE ONCE PO Last administered on 08/04/17at 20:55; Start 08/04/17 at 20:45; Stop 08/04/17 at 20:46; Status DC Sodium Chloride (NS Flush) 2 ml UNSCH PRN IVF FLUSH AFTER USING IV ACCESS; Start 08/04/17 at 21:45; Stop 08/04/17 at 22:45; Status DC Sodium Chloride 1,000 ml @ 75 mls/hr [id number] IV Last administered on 08/04/17at 22:42; Start 08/04/17 at 22:27 Sodium Chloride (NS Flush) 2 ml UNSCH PRN IV FLUSH FLUSH AFTER USING IV ACCESS Last administered on 08/05/17at 13:15; Start 08/04/17 at 22:30 Sodium Chloride (NS Flush) 2 ml BID IV FLUSH ; Start 08/05/17 at 09:00 Acetaminophen (Tylenol) 650 mg Q4H PRN PO headache/fever/pain1-2; Start at 22:30 Ondansetron HCl (Zofran Inj) 4 mg Q6H PRN IVP NAUSEA OR VOMITING; Start at 22:30 Naloxone HCl (Narcan Inj) 0.4 mg UNSCH PRN IV PUSH SEE LABEL COMMENTS; Start at 22:30 Senna/Docusate Sodium (Thania-Colace) 1 tab BID PO ; Start 08/05/17 at 09:00 Magnesium Hydroxide (Milk Of Magnesia Liq) 30 ml Q12H PRN PO Mild constipation ; Start 08/04/17 at 22:30 Sennosides (Senokot) 17.2 mg Q12H PRN PO Moderate constipation; Start 08/04/17 at 22:30 Bisacodyl (Dulcolax Supp) 10 mg DAILY PRN RECTAL SEVERE CONSITIPATION; Start at 22:30 Lactulose (Lactulose Liq) 30 ml DAILY PRN PO SEVERE CONSITIPATION; Start at 22:30 Gabapentin (Neurontin) 300 mg Q12HR PO Last administered on 08/05/17at 08:03; Start 08/05/17 at 09:00 Losartan Potassium (Cozaar) 50 mg BID PO ; Start 08/05/17 at 09:00 Nebivolol (Bystolic) 20 mg DAILY PO ; Start 08/05/17 at 09:00 Sertraline HCl (Zoloft) 50 mg DAILY PO Last administered on 08/05/17at 08:03; Start 08/05/17 at 09:00 Morphine Sulfate (Morphine Inj) 2 mg Q4H PRN IV PUSH pain 6-10; Start 08/04/17 at 22:30; Stop 08/05/17 at 03:01; Status DC Lactated Ringer's 1,000 ml @ 30 mls/hr Q24H PRN IV SEE LABEL COMMENTS Last administered on 08/05/17at 09:04; Start 08/05/17 at 01:15; Stop 08/08/17 at 01:14 Sodium Chloride 500 ml @ 30 mls/hr [id number] PRN IV SEE LABEL COMMENTS; Start 08/05/17 at 01:15; Stop 08/08/17 at 01:14 Povidone Iodine (Betadine 5% Antisepsis Kit) 1 applic U.S. REPRESENTATIVE PRN EACH NARE SEE LABEL COMMENTS; Start 08/05/17 at 01:15; Stop 08/08/17 at 01:14 Chlorhexidine Gluconate (Chlorhexidine 2% Cloth) 3 pack U.S. REPRESENTATIVE PRN TOPICAL SEE LABEL COMMENTS; Start 08/05/17 at 01:15; Stop 08/08/17 at 01:14 Acetaminophen/ Hydrocodone Bitart ([place] 5-325 Mg) 1 tab Q4H PRN PO PAIN SCALE 3 TO 5; Start 08/05/17 at 03:00 Acetaminophen/ Hydrocodone Bitart ([place] 7.5-325 Mg) 1 tab Q4H PRN PO PAIN SCALE 6 TO 10; Start 08/05/17 at 03:00 Morphine Sulfate (Morphine Inj) 2 mg Q3H PRN IV PUSH BREAKTHROUGH PAIN; Start 08/05/17 at 03:00 Gabapentin (Neurontin) 300 mg ONCE ONCE PO Last administered on 08/05/17at 03:35 ; Start 08/05/17 at 03:30; Stop 08/05/17 at 03:31; Status DC Acetaminophen 100 ml @ As Directed STK-MED ONCE IV ; Start 08/05/17 at 10:03; Stop 08/05/17 at 10:04; Status DC Cefazolin Sodium (Ancef Inj) 2,000 mg STK-MED ONCE .ROUTE Last administered on 08/05/17at 11:20; Start 08/05/17 at 10:42; Stop 08/05/17 at 10:43; Status DC Gentamicin Sulfate (Gentamicin Inj) 240 mg STK-MED ONCE .ROUTE Last administered on 08/05/17at 11:40; Start 08/05/17 at 10:43; Stop 08/05/17 at 10:44; Status DC Vancomycin HCl (Vancomycin Inj) 1,000 mg STK-MED ONCE .ROUTE Last administered on 08/05/17at 11:22; Start 08/05/17 at 10:43; Stop 08/05/17 at 10:44; Status DC Bupivacaine HCl/ Epinephrine Bitart (Marcaine-Epi Pf 0.25% Inj) 30 ml STK-MED ONCE .ROUTE Last administered on 08/05/17at 11:38; Start 08/05/17 at 10:43; Stop 08/05/17 at 10:44; Status DC Miscellaneous Information (Post-op Orders (for Pharmacy)) STAT ONCE XX ; Start 08/05/17 at 12:15; Stop 08/05/17 at 12:16; Status DC Enoxaparin Sodium (Lovenox Inj) 30 mg Q24H SQ ; Start 08/06/17 at 00:00 Cefazolin Sodium 1000 mg/Sodium Chloride 100 ml @ 200 mls/hr Q6H IV ; Start 08/05/17 at 17:00; Stop 08/06/17 at 05:29 Ergocalciferol (Drisdol) 50,000 units ONCE ONCE PO Last administered on at 13:15; Start 08/05/17 at 11:45; Stop 08/05/17 at 11:46; Status DC Cholecalciferol (Vitamin D3) 5,000 units DAILY PO ; Start 08/06/17 at 09:00 Miscellaneous Information ALL NURSING DEPARTME... UNSCH PRN .XX SEE LABEL COMMENTS; Start 08/05/17 at 11:58; Stop 08/06/17 at 11:57 Fluticasone Propionate (Flonase Marco Antonio Spr) 1 spray BID NASAL ; Start 08/05/17 at 15 :00; Status UNV Sodium Chloride (Baby [place] Saline 0.65% Marco Antonio Drp/ [place]) 6 drop UNSCH PRN EACH NARE nasal congestion; Start 08/05/17 at 15:00; Status UNV A/P Problem List: (1) Femoral neck fracture ICD Code: S72.009A - Fracture of unspecified part of neck of unspecified femur , initial encounter for closed fracture Status: Acute (2) HTN (hypertension) ICD Code: I10 - Essential (primary) hypertension Status: Acute Assessment and Plan 82-year-old female with history of hypertension, CKD stage III, chronic colitis , arthritis, anxiety/depression, and postherpetic neuralgia s/p shingles of RUE , presents with left hip pain s/p fall that occurred on 08/04/16 at 4pm. Left hip fracture -Status post left hip pinning today. -Management per orthopedic. Dizziness -Sounds more like secondary to sinusitis. Will treat with Flonase and nasal saline spray. Hypertension: -Continue home medication. CKD, stage III: Cr 1.5, appears at patient's baseline -avoid nephrotoxins -monitor renal functions Postherpetic Neuralgia: s/p shingles January2017 -continue patient's gabapentin at lower dose of 300mg bid -patient follows with neurologist Dr. Hurley as outpatient Anxiety/Depression: chronic, stable -continue patient's sertraline DVT Prophylaxis: Lovenox. Problem Qualifiers (1) Femoral neck fracture: Qualified Codes: S72.001A - Fracture of unspecified part of neck of right femur , initial encounter for closed fracture Lindsey Lopez MD Aug 05, 2017 14:57
[2017-08-05] MEDS ORDERED: SODIUM CHLORIDE 0.65% NASAL DRP/SPRY 30 ML BTL EACH NARE PRN (16:00)
[2017-08-05] MEDS: FLUTICASONE PROPIONATE 50 MCG/ACT 16 GM NASAL SPRAY NASAL SCH ×3 (16:00→21:48)
[2017-08-05] MEDS: ENOXAPARIN SODIUM 30 MG/0.3 ML SYRINGE SQ SCH (23:29)
[2017-08-06] MEDS: SODIUM CHLOR 0.9% 1000 ML INJ 1,000 ML IV SCH ×2 (01:07→14:27)
[2017-08-06 03:55] VITALS: BP 119/65; PULSE 79; RESP 18; TEMP 97; O2SAT 95
[2017-08-06] MEDS: ACETAMINOPHEN/HYDROcodone 325 MG/5 MG TAB PO PRN ×3 (04:18→18:26)
--- NOTE | 2017-08-06 06:54 | HHI.FF ---
Face to Face Verification Diagnosis: (1) Femoral neck fracture Physical Therapy Gait training Hip: Hip fracture, Protocol: Left Left LE Weight Bearing: Toe Touch WB Nursing Dressing Changes: Daily dressing change, Xeroform, Coverderm/Primapore I have seen patient Yeimy Singleton on 08/06/17. My clinical findings support the need for the requested home health care services because: Ltd mobility - disease progression I certify that my clinical findings support that this patient is homebound because: Post-op weakness Victoriano Cheung/Stripper Preliminary PA Aug 06, 2017 06:54
--- NOTE | 2017-08-06 06:54 | PD.ORT.PN ---
Subjective Subjective Remarks POD 1 s/p PCP of left hip doing well. states pain in hip but controlled with meds. reports significant pain in right arm due to shingles. reports that takes 900mg Gabapentin QID at home and has been cut down to 300mg BID. is requesting to have her dosage increased. Objective Vitals Vital Signs Date Time Temp Pulse Resp B/P (MAP) Pulse Ox O2 Delivery O2 Flow Rate FiO2 08/06/17 03:55 97.0 79 18 119/65 (83) 95 08/05/17 23:15 97.0 81 18 142/70 (94) 95 08/05/17 20:51 97 Nasal Cannula 3.00 08/05/17 19:50 97.2 89 18 119/65 (83) 93 08/05/17 13:04 98.1 92 17 109/54 (72) 99 Nasal Cannula 3 08/05/17 12:45 99 17 108/55 (72) 99 Nasal Cannula 2 08/05/17 12:30 101 16 117/56 (76) 99 Nasal Cannula 1.5 08/05/17 12:15 106 16 118/58 (78) 99 Nasal Cannula 3 08/05/17 12:00 96.3 98 16 101/54 (70) 94 08/05/17 11:58 98.1 105 16 125/58 (80) 99 Nasal Cannula 3 08/05/17 08:00 96.8 97 16 102/55 (71) 92 08/05/17 08:00 123/62 (82) I/O 08/05/17 08/05/17 08/05/17 08/06/17 08/06/17 08/06/17 07:00 15:00 23:00 07:00 15:00 23:00 Intake Total 243 ml 1310 ml 240 ml 1258 ml Output Total 5 ml Balance 243 ml 1305 ml 240 ml 1258 ml Intake Oral 120 ml 240 ml 240 ml IV Total 243 ml 190 ml 1018 ml Other 1000 ml Output Estimated Blood Loss 5 ml # Voids 3 2 1 # Bowel Movements 1 0 Result Diagram: 08/05/17 0425 08/05/17 0425 Imaging Last 24 hours Impressions Chest X-Ray 08/04/17 4678 Signed Impressions: Service Date/Time: Friday, August 04, 2017 22:02 - CONCLUSION: 1. Bibasilar scarring versus subsegmental atelectasis. 2. Previous disease. 3. Eventration right hemidiaphragm. Kelechi Walker MD Objective Remarks LLE: dressings clean and dry. intact. NVI Assessment & Plan Assessment and Plan 1) Left Femoral Neck Fx s/p perc pinning - POD 1 -TTWB -daily dressing changes POD 2 -DVT Prophylaxis -RXs on chart -if doing well with PT, then plan for home with [facility] Fri/sat -f/u nena Irwin or ERNESTO in 2 weeks -will restart Gabapentin 900mg QID Victoriano Cheung/Compensation Consulting Manager PA Aug 06, 2017 06:54
[2017-08-06 07:39] LABS: BICARBONATE 21.4 MEQ/L (21.0-32.0); CALCIUM 8.7 MG/DL (8.5-10.1); CREATININE 1.6 MG/DL (0.50-1.00)
[2017-08-06 08:00] VITALS: BP 130/75; PULSE 89; RESP 17; TEMP 96.2; O2SAT 92
[2017-08-06] MEDS: DOCUSATE SODIUM 50 MG/SENNA 8.6 MG TAB PO SCH ×2 (09:00→20:16)
[2017-08-06 09:24] LABS: HEMATOCRIT 32.4 % (35.0-46.0); HEMOGLOBIN 11.2 GM/DL (11.6-15.3); MEAN CELL VOLUME 99.3 FL (80.0-100.0); MEAN CORPUSCULAR HEMOGLOBIN 34.3 PG (27.0-34.0); MEAN CORPUSCULAR HGB CONC 34.6 % (32.0-36.0); MEAN PLATELET VOLUME 8.7 FL (7.0-11.0); PLATELET COUNT 174 TH/MM3 (150-450); RED BLOOD COUNT 3.27 MIL/MM3 (4.00-5.30); RED CELL DISTRIBUTION WIDTH 12.5 % (11.6-17.2); WHITE BLOOD COUNT 9.8 TH/MM3 (4.0-11.0)
[2017-08-06] MEDS: LOSARTAN 50 MG TAB PO SCH ×2 (10:08→20:13)
[2017-08-06] MEDS: SERTRALINE HCL 50 MG TAB PO SCH (10:08)
[2017-08-06] MEDS: CHOLECALCIFEROL (VIT D3) 5000 UNIT CAP PO SCH (10:09)
[2017-08-06] MEDS: SODIUM CHLORIDE 0.9% FLUSH 10 ML FLUSH IV FLUSH SCH ×2 (10:09→20:13)
[2017-08-06] MEDS: GABAPENTIN 300 MG CAP PO SCH ×4 (10:09→20:13)
[2017-08-06] MEDS: NEBIVOLOL 10 MG TAB PO SCH (10:09)
[2017-08-06] MEDS: FLUTICASONE PROPIONATE 50 MCG/ACT 16 GM NASAL SPRAY NASAL SCH ×2 (10:16→20:14)
[2017-08-06 12:00] VITALS: BP 100/51; PULSE 77; RESP 17; TEMP 96.7; O2SAT 92
--- NOTE | 2017-08-06 15:35 | HHI.PR ---
Subjective Remarks Follow-up for surgery Patient had no complaints. She denies any nausea vomiting. She stated that she is eating very well. Her is at the bedside during the interview. Deny any more dizziness. In terms of her Flonase and nasal spray patient stated that she thinks it's working. Objective Vitals Vital Signs Date Time Temp Pulse Resp B/P (MAP) Pulse Ox O2 Delivery O2 Flow Rate FiO2 08/06/17 12:00 96.7 77 17 100/51 (67) 92 08/06/17 08:00 96.2 89 17 130/75 (93) 92 08/06/17 03:55 97.0 79 18 119/65 (83) 95 08/05/17 23:15 97.0 81 18 142/70 (94) 95 08/05/17 20:51 97 Nasal Cannula 3.00 08/05/17 19:50 97.2 89 18 119/65 (83) 93 I/O 08/05/17 08/05/17 08/05/17 08/06/17 08/06/17 08/06/17 07:00 15:00 23:00 07:00 15:00 23:00 Intake Total 243 ml 1310 ml 240 ml 1258 ml Output Total 5 ml Balance 243 ml 1305 ml 240 ml 1258 ml Intake Oral 120 ml 240 ml 240 ml IV Total 243 ml 190 ml 1018 ml Other 1000 ml Output Estimated Blood Loss 5 ml # Voids 3 2 1 # Bowel Movements 1 0 Result Diagram: 08/06/17 0904 08/06/17 0608 Objective Remarks GENERAL: in NAD CARDIOVASCULAR: Regular rate and rhythm without murmurs, gallops, or rubs. RESPIRATORY: Breath sounds equal bilaterally. No accessory muscle use. GASTROINTESTINAL: Abdomen soft, non-tender, nondistended. MUSCULOSKELETAL: No cyanosis, or edema. BACK: Nontender without obvious deformity. No CVA tenderness. Medications and IVs Current Medications Acetaminophen/ Hydrocodone Bitart ([place] 5-325 Mg) 2 tab ONCE ONCE PO Last administered on 08/04/17at 20:55; Start 08/04/17 at 20:45; Stop 08/04/17 at 20:46; Status DC Sodium Chloride (NS Flush) 2 ml UNSCH PRN IVF FLUSH AFTER USING IV ACCESS; Start 08/04/17 at 21:45; Stop 08/04/17 at 22:45; Status DC Sodium Chloride 1,000 ml @ 75 mls/hr [id number] IV Last administered on 08/04/17at 22:42; Start 08/04/17 at 22:27 Sodium Chloride (NS Flush) 2 ml UNSCH PRN IV FLUSH FLUSH AFTER USING IV ACCESS Last administered on 08/05/17at 13:15; Start 08/04/17 at 22:30 Sodium Chloride (NS Flush) 2 ml BID IV FLUSH Last administered on 08/06/17at 10: 09; Start 08/05/17 at 09:00 Acetaminophen (Tylenol) 650 mg Q4H PRN PO headache/fever/pain1-2; Start at 22:30 Ondansetron HCl (Zofran Inj) 4 mg Q6H PRN IVP NAUSEA OR VOMITING; Start at 22:30 Naloxone HCl (Narcan Inj) 0.4 mg UNSCH PRN IV PUSH SEE LABEL COMMENTS; Start at 22:30 Senna/Docusate Sodium ([place]ania-Colace) 1 tab BID PO ; Start 08/05/17 at 09:00 Magnesium Hydroxide (Milk Of Magnesia Liq) 30 ml Q12H PRN PO Mild constipation ; Start 08/04/17 at 22:30 Sennosides (Senokot) 17.2 mg Q12H PRN PO Moderate constipation; Start 08/04/17 at 22:30 Bisacodyl (Dulcolax Supp) 10 mg DAILY PRN RECTAL SEVERE CONSITIPATION; Start at 22:30 Lactulose (Lactulose Liq) 30 ml DAILY PRN PO SEVERE CONSITIPATION; Start at 22:30 Gabapentin (Neurontin) 300 mg Q12HR PO Last administered on 08/05/17at 21:47; Start 08/05/17 at 09:00; Stop 08/06/17 at 06:22; Status DC Losartan Potassium (Cozaar) 50 mg BID PO Last administered on 08/06/17at 10:08; Start 08/05/17 at 09:00 Nebivolol (Bystolic) 20 mg DAILY PO Last administered on 08/06/17at 10:09; Start 08/05/17 at 09:00 Sertraline HCl (Zoloft) 50 mg DAILY PO Last administered on 08/06/17at 10:08; Start 08/05/17 at 09:00 Morphine Sulfate (Morphine Inj) 2 mg Q4H PRN IV PUSH pain 6-10; Start 08/04/17 at 22:30; Stop 08/05/17 at 03:01; Status DC Lactated Ringer's 1,000 ml @ 30 mls/hr Q24H PRN IV SEE LABEL COMMENTS Last administered on 08/05/17at 09:04; Start 08/05/17 at 01:15; Stop 08/08/17 at 01:14 Sodium Chloride 500 ml @ 30 mls/hr [id number] PRN IV SEE LABEL COMMENTS; Start 08/05/17 at 01:15; Stop 08/08/17 at 01:14 Povidone Iodine (Betadine 5% Antisepsis Kit) 1 applic BROADCAST DESIGNER PRN EACH NARE SEE LABEL COMMENTS; Start 08/05/17 at 01:15; Stop 08/08/17 at 01:14 Chlorhexidine Gluconate (Chlorhexidine 2% Cloth) 3 pack BROADCAST DESIGNER PRN TOPICAL SEE LABEL COMMENTS; Start 08/05/17 at 01:15; Stop 08/08/17 at 01:14 Acetaminophen/ Hydrocodone Bitart ([place] 5-325 Mg) 1 tab Q4H PRN PO PAIN SCALE 3 TO 5 Last administered on 08/06/17at 10:10; Start 08/05/17 at 03:00 Acetaminophen/ Hydrocodone Bitart ([place] 7.5-325 Mg) 1 tab Q4H PRN PO PAIN SCALE 6 TO 10; Start 08/05/17 at 03:00 Morphine Sulfate (Morphine Inj) 2 mg Q3H PRN IV PUSH BREAKTHROUGH PAIN; Start 08/05/17 at 03:00 Gabapentin (Neurontin) 300 mg ONCE ONCE PO Last administered on 08/05/17at 03:35 ; Start 08/05/17 at 03:30; Stop 08/05/17 at 03:31; Status DC Acetaminophen 100 ml @ As Directed STK-MED ONCE IV ; Start 08/05/17 at 10:03; Stop 08/05/17 at 10:04; Status DC Cefazolin Sodium (Ancef Inj) 2,000 mg STK-MED ONCE .ROUTE Last administered on 08/05/17 11:20; Start 08/05/17 at 10:42; Stop 08/05/17 at 10:43; Status DC Gentamicin Sulfate (Gentamicin Inj) 240 mg STK-MED ONCE .ROUTE Last administered on 08/05/17 11:40; Start 08/05/17 at 10:43; Stop 08/05/17 at 10:44; Status DC Vancomycin HCl (Vancomycin Inj) 1,000 mg STK-MED ONCE .ROUTE Last administered on 08/05/17 11:22; Start 08/05/17 at 10:43; Stop 08/05/17 at 10:44; Status DC Bupivacaine HCl/ Epinephrine Bitart (Marcaine-Epi Pf 0.25% Inj) 30 ml STK-MED ONCE .ROUTE Last administered on 08/05/17 11:38; Start 08/05/17 at 10:43; Stop 08/05/17 at 10:44; Status DC Miscellaneous Information (Post-op Orders (for Pharmacy)) STAT ONCE XX ; Start 08/05/17 at 12:15; Stop 08/05/17 at 12:16; Status DC Enoxaparin Sodium (Lovenox Inj) 30 mg Q24H SQ Last administered on 08/05/17 23: 29; Start 08/06/17 at 00:00 Cefazolin Sodium 1000 mg/Sodium Chloride 100 ml @ 200 mls/hr Q6H IV Last administered on 08/06/17 04:10; Start 08/05/17 at 17:00; Stop 08/06/17 at 05:29; Status DC Ergocalciferol (Drisdol) 50,000 units ONCE ONCE PO Last administered on 13:15; Start 08/05/17 at 11:45; Stop 08/05/17 at 11:46; Status DC Cholecalciferol (Vitamin D3) 5,000 units DAILY PO Last administered on 10:09; Start 08/06/17 at 09:00 Miscellaneous Information ALL NURSING DEPARTME... UNSCH PRN .XX SEE LABEL COMMENTS; Start 08/05/17 at 11:58; Stop 08/06/17 at 11:57; Status DC Fluticasone Propionate (Flonase Marco Antonio Spr) 1 spray BID NASAL Last administered on 1/4/18at 10:16; Start 08/05/17 at 16:00 Sodium Chloride (Baby [place] Saline 0.65% Marco Antonio Drp/ [place]) 6 drop UNSCH PRN EACH NARE nasal congestion; Start 08/05/17 at 16:00 Fentanyl Citrate (fentaNYL INJ) 200 mcg STK-MED ONCE .ROUTE ; Start 08/05/17 at 18:10; Stop 08/05/17 at 18:11; Status DC Gabapentin (Neurontin) 900 mg QID PO Last administered on 08/06/17at 14:33; Start 08/06/17 at 09:00 Lidocaine HCl (Xylocaine-Mpf 1% Inj) 5 ml STK-MED ONCE OTHER ; Start 08/05/17 at 12:00; Stop 08/06/17 at 14:17; Status DC Phenylephrine HCl (Neosynephrine/ NS 1000 Mcg/10ml Syr) 1,000 mcg STK-MED ONCE IV ; Start 08/05/17 at 12:00; Stop 08/06/17 at 14:17; Status DC Ephedrine Sulfate (ePHEDrine/NS 25 MG/5 ML SYR) 25 mg STK-MED ONCE IV ; Start at 12:00; Stop 08/06/17 at 14:17; Status DC Dexamethasone Sodium Phosphate (Decadron Inj) 4 mg STK-MED ONCE IV ; Start at 12:00; Stop 08/06/17 at 14:17; Status DC Ondansetron HCl (Zofran Inj) 4 mg STK-MED ONCE IV PUSH ; Start 08/05/17 at 12:00 ; Stop 08/06/17 at 14:17; Status DC Propofol (Diprivan 200 Mg/20 ml Inj) 200 mg STK-MED ONCE IV ; Start 08/05/17 at 12:00; Stop 08/06/17 at 14:17; Status DC Lactated Ringer's 1,000 ml @ As Directed STK-MED ONCE IV ; Start 08/05/17 at 12: 00; Stop 08/06/17 at 14:17; Status DC A/P Problem List: (1) Femoral neck fracture ICD Code: S72.009A - Fracture of unspecified part of neck of unspecified femur , initial encounter for closed fracture Status: Acute (2) HTN (hypertension) ICD Code: I10 - Essential (primary) hypertension Status: Acute Assessment and Plan 82-year-old female with history of hypertension, CKD stage III, chronic colitis , arthritis, anxiety/depression, and postherpetic neuralgia s/p shingles of RUE , presents with left hip pain s/p fall that occurred on 08/04/16 at 4pm. Left hip fracture -Status post left hip pinning on 08/05/2017 -Management per orthopedic. Dizziness -No episodes during hospitalization. -Sounds more like secondary to sinusitis. Continue Flonase and nasal saline washes. Hypertension: -Continue home medication. CKD, stage III: Cr 1.5, appears at patient's baseline -avoid nephrotoxins -monitor renal functions Postherpetic Neuralgia: s/p shingles January2017 -continue patient's gabapentin at lower dose of 300mg bid -patient follows with neurologist Dr. Hurley as outpatient Anxiety/Depression: chronic, stable -continue patient's sertraline DVT Prophylaxis: Lovenox. Problem Qualifiers (1) Femoral neck fracture: Qualified Codes: S72.001A - Fracture of unspecified part of neck of right femur , initial encounter for closed fracture Lindsey Lopez MD Aug 06, 2017 15:35
[2017-08-06 16:00] VITALS: BP 113/60; PULSE 75; RESP 17; TEMP 96.5; O2SAT 91
[2017-08-06 19:45] VITALS: BP 111/56; PULSE 82; RESP 18; TEMP 98.1; O2SAT 93
[2017-08-06 23:40] VITALS: BP 110/58; PULSE 76; RESP 18; TEMP 97.3; O2SAT 96
[2017-08-07] VITALS (7 sets, daily range): BP systolic 82–101; BP diastolic 42–58; PULSE 74–93; RESP 16–18; TEMP 96.3–97.8; O2SAT 91–100
[2017-08-07] MEDS: ENOXAPARIN SODIUM 30 MG/0.3 ML SYRINGE SQ SCH (00:07)
[2017-08-07] MEDS: ACETAMINOPHEN/HYDROcodone 325 MG/7.5 MG TAB PO PRN ×2 (03:24→10:52)
--- NOTE | 2017-08-07 06:38 | PD.ORT.PN ---
Subjective Subjective Remarks POD 2 s/p PCP of left hip doing well. improving. reports hip sorenes. Objective Vitals Vital Signs Date Time Temp Pulse Resp B/P (MAP) Pulse Ox O2 Delivery O2 Flow Rate FiO2 08/06/17 23:40 97.3 76 18 110/58 (75) 96 08/06/17 20:25 Nasal Cannula 3.00 08/06/17 20:21 3.00 08/06/17 19:45 98.1 82 18 111/56 (74) 93 08/06/17 18:44 Room Air 08/06/17 16:00 96.5 75 17 113/60 (77) 91 08/06/17 12:00 96.7 77 17 100/51 (67) 92 08/06/17 08:00 96.2 89 17 130/75 (93) 92 I/O 08/06/17 08/06/17 08/06/17 08/07/17 08/07/17 08/07/17 07:00 15:00 23:00 07:00 15:00 23:00 Intake Total 1258 ml 480 ml Balance 1258 ml 480 ml Intake Oral 240 ml 480 ml IV Total 1018 ml # Voids 1 2 # Bowel Movements 0 0 Result Diagram: 08/06/17 0904 08/06/17 0608 Imaging Last 24 hours Impressions Chest X-Ray [id number]/04/[id number] Signed Impressions: Service Date/Time: Friday, August 04, 2017 22:02 - CONCLUSION: 1. Bibasilar scarring versus subsegmental atelectasis. 2. Previous disease. 3. Eventration right hemidiaphragm. Kelechi Walker MD Objective Remarks LLE: dressings clean and dry. intact. NVI Assessment & Plan Assessment and Plan 1) Left Femoral Neck Fx s/p perc pinning - POD 2 -TTWB -daily dressing changes -DVT Prophylaxis -RXs on chart -plan for DC to SNF -ortho cleared for DC to SNF -f/u wtih Alida or ERNESTO in 2 weeks Victoriano Cheung/Paint Mixer Hand ERNESTO Aug 07, 2017 06:38
[2017-08-07 08:59] LABS: BICARBONATE 21.8 MEQ/L (21.0-32.0); CALCIUM 8.6 MG/DL (8.5-10.1); CREATININE 1.74 MG/DL (0.50-1.00)
[2017-08-07] MEDS: NEBIVOLOL 10 MG TAB PO SCH (09:00)
[2017-08-07] MEDS: LOSARTAN 50 MG TAB PO SCH (09:00)
[2017-08-07] MEDS ORDERED: BABY0.65 EACH NARE (09:11)
[2017-08-07] MEDS ORDERED: FLUT50SP NASAL (09:11)
[2017-08-07] MEDS: SERTRALINE HCL 50 MG TAB PO SCH (10:45)
[2017-08-07] MEDS: CHOLECALCIFEROL (VIT D3) 5000 UNIT CAP PO SCH (10:46)
[2017-08-07] MEDS: GABAPENTIN 300 MG CAP PO SCH ×2 (10:46→15:05)
[2017-08-07] MEDS: DOCUSATE SODIUM 50 MG/SENNA 8.6 MG TAB PO SCH ×2 (10:46→19:27)
[2017-08-07] MEDS: SODIUM CHLORIDE 0.9% FLUSH 10 ML FLUSH IV FLUSH SCH ×2 (10:47→19:27)
[2017-08-07] MEDS: FLUTICASONE PROPIONATE 50 MCG/ACT 16 GM NASAL SPRAY NASAL SCH ×2 (10:47→21:00)
[2017-08-07] MEDS ORDERED: SODIUM CHLOR 0.9% 1000 ML INJ 1,000 ML IV ONE ×3 (14:45→16:00)
--- NOTE | 2017-08-07 15:33 | HHI.PR ---
Subjective Remarks Follow-up for hip fracture Patient had no complaints. She states she is doing well. Patient is very anxious to do rehabilitation. Denied any lightheadedness or dizziness. She stated that she is tolerating her diet well. Patient was going to be discharged to [facility] but before being discharged vitals was checked and her systolic blood pressure was in the 80s. I asked for the blood pressure to be rechecked manually by Renea her nurse and she stated continues to be in the 80s. Patient is asymptomatic. Discharge was canceled and held secondary to low blood pressure. Objective Vitals Vital Signs Date Time Temp Pulse Resp B/P (MAP) Pulse Ox O2 Delivery O2 Flow Rate FiO2 08/07/17 12:00 96.3 86 17 82/44 (57) 91 08/07/17 08:00 97.2 76 17 100/58 (72) 96 08/06/17 23:40 97.3 76 18 110/58 (75) 96 08/06/17 20:25 Nasal Cannula 3.00 08/06/17 20:21 3.00 08/06/17 19:45 98.1 82 18 111/56 (74) 93 08/06/17 18:44 Room Air 08/06/17 16:00 96.5 75 17 113/60 (77) 91 I/O 08/06/17 08/06/17 08/06/17 08/07/17 08/07/17 08/07/17 06:59 14:59 22:59 06:59 14:59 22:59 Intake Total 1258 ml 480 ml 480 ml 240 ml Balance 1258 ml 480 ml 480 ml 240 ml Intake Oral 240 ml 480 ml 480 ml 240 ml IV Total 1018 ml # Voids 1 2 2 1 # Bowel Movements 0 0 0 0 Result Diagram: 08/06/17 0904 08/07/17 0744 Objective Remarks GENERAL: in NAD CARDIOVASCULAR: Regular rate and rhythm without murmurs, gallops, or rubs. RESPIRATORY: Breath sounds equal bilaterally. No accessory muscle use. GASTROINTESTINAL: Abdomen soft, non-tender, nondistended. MUSCULOSKELETAL: No cyanosis, or edema. BACK: Nontender without obvious deformity. No CVA tenderness. Medications and IVs Current Medications Acetaminophen/ Hydrocodone Bitart ([place] 5-325 Mg) 2 tab ONCE ONCE PO Last administered on 08/04/17at 20:55; Start 08/04/17 at 20:45; Stop 08/04/17 at 20:46; Status DC Sodium Chloride (NS Flush) 2 ml UNSCH PRN IVF FLUSH AFTER USING IV ACCESS; Start 08/04/17 at 21:45; Stop 08/04/17 at 22:45; Status DC Sodium Chloride 1,000 ml @ 75 mls/hr [id number] IV Last administered on 08/04/17at 22:42; Start 08/04/17 at 22:27 Sodium Chloride (NS Flush) 2 ml UNSCH PRN IV FLUSH FLUSH AFTER USING IV ACCESS Last administered on 08/05/17at 13:15; Start 08/04/17 at 22:30 Sodium Chloride (NS Flush) 2 ml BID IV FLUSH Last administered on 08/07/17at 10: 47; Start 08/05/17 at 09:00 Acetaminophen (Tylenol) 650 mg Q4H PRN PO headache/fever/pain1-2; Start at 22:30 Ondansetron HCl (Zofran Inj) 4 mg Q6H PRN IVP NAUSEA OR VOMITING Last administered on 08/07/17at 03:24; Start 08/04/17 at 22:30 Naloxone HCl (Narcan Inj) 0.4 mg UNSCH PRN IV PUSH SEE LABEL COMMENTS; Start at 22:30 Senna/Docusate Sodium ([place]ania-Colace) 1 tab BID PO Last administered on 08/07/17at 10:46; Start 08/05/17 at 09:00 Magnesium Hydroxide (Milk Of Magnesia Liq) 30 ml Q12H PRN PO Mild constipation ; Start 08/04/17 at 22:30 Sennosides (Senokot) 17.2 mg Q12H PRN PO Moderate constipation; Start 08/04/17 at 22:30 Bisacodyl (Dulcolax Supp) 10 mg DAILY PRN RECTAL SEVERE CONSITIPATION; Start at 22:30 Lactulose (Lactulose Liq) 30 ml DAILY PRN PO SEVERE CONSITIPATION; Start at 22:30 Gabapentin (Neurontin) 300 mg Q12HR PO Last administered on 08/05/17at 21:47; Start 08/05/17 at 09:00; Stop 08/06/17 at 06:22; Status DC Losartan Potassium (Cozaar) 50 mg BID PO Last administered on 08/06/17at 20:13; Start 08/05/17 at 09:00 Nebivolol (Bystolic) 20 mg DAILY PO Last administered on 08/06/17at 10:09; Start 08/05/17 at 09:00 Sertraline HCl (Zoloft) 50 mg DAILY PO Last administered on 08/07/17at 10:45; Start 08/05/17 at 09:00 Morphine Sulfate (Morphine Inj) 2 mg Q4H PRN IV PUSH pain 6-10; Start 08/04/17 at 22:30; Stop 08/05/17 at 03:01; Status DC Lactated Ringer's 1,000 ml @ 30 mls/hr Q24H PRN IV SEE LABEL COMMENTS Last administered on 08/05/17at 09:04; Start 08/05/17 at 01:15; Stop 08/08/17 at 01:14 Sodium Chloride 500 ml @ 30 mls/hr [id number] PRN IV SEE LABEL COMMENTS; Start 08/05/17 at 01:15; Stop 08/08/17 at 01:14 Povidone Iodine (Betadine 5% Antisepsis Kit) 1 applic PARALEGAL ASSISTANT PRN EACH NARE SEE LABEL COMMENTS; Start 08/05/17 at 01:15; Stop 08/08/17 at 01:14 Chlorhexidine Gluconate (Chlorhexidine 2% Cloth) 3 pack PARALEGAL ASSISTANT PRN TOPICAL SEE LABEL COMMENTS; Start 08/05/17 at 01:15; Stop 08/08/17 at 01:14 Acetaminophen/ Hydrocodone Bitart ([place] 5-325 Mg) 1 tab Q4H PRN PO PAIN SCALE 3 TO 5 Last administered on 08/06/17at 18:26; Start 08/05/17 at 03:00 Acetaminophen/ Hydrocodone Bitart ([place] 7.5-325 Mg) 1 tab Q4H PRN PO PAIN SCALE 6 TO 10 Last administered on 08/07/17at 10:52; Start 08/05/17 at 03:00 Morphine Sulfate (Morphine Inj) 2 mg Q3H PRN IV PUSH BREAKTHROUGH PAIN; Start 08/05/17 at 03:00 Gabapentin (Neurontin) 300 mg ONCE ONCE PO Last administered on 08/05/17at 03:35 ; Start 08/05/17 at 03:30; Stop 08/05/17 at 03:31; Status DC Acetaminophen 100 ml @ As Directed STK-MED ONCE IV ; Start 08/05/17 at 10:03; Stop 08/05/17 at 10:04; Status DC Cefazolin Sodium (Ancef Inj) 2,000 mg STK-MED ONCE .ROUTE Last administered on 08/05/17at 11:20; Start 08/05/17 at 10:42; Stop 08/05/17 at 10:43; Status DC Gentamicin Sulfate (Gentamicin Inj) 240 mg STK-MED ONCE .ROUTE Last administered on 08/05/17at 11:40; Start 08/05/17 at 10:43; Stop 08/05/17 at 10:44; Status DC Vancomycin HCl (Vancomycin Inj) 1,000 mg STK-MED ONCE .ROUTE Last administered on 08/05/17at 11:22; Start 08/05/17 at 10:43; Stop 08/05/17 at 10:44; Status DC Bupivacaine HCl/ Epinephrine Bitart (Marcaine-Epi Pf 0.25% Inj) 30 ml STK-MED ONCE .ROUTE Last administered on 08/05/17at 11:38; Start 08/05/17 at 10:43; Stop 08/05/17 at 10:44; Status DC Miscellaneous Information (Post-op Orders (for Pharmacy)) STAT ONCE XX ; Start 08/05/17 at 12:15; Stop 08/05/17 at 12:16; Status DC Enoxaparin Sodium (Lovenox Inj) 30 mg Q24H SQ Last administered on 08/07/17at 00: 07; Start 08/06/17 at 00:00 Cefazolin Sodium 1000 mg/Sodium Chloride 100 ml @ 200 mls/hr Q6H IV Last administered on 08/06/17at 04:10; Start 08/05/17 at 17:00; Stop 08/06/17 at 05:29; Status DC Ergocalciferol (Drisdol) 50,000 units ONCE ONCE PO Last administered on at 13:15; Start 08/05/17 at 11:45; Stop 08/05/17 at 11:46; Status DC Cholecalciferol (Vitamin D3) 5,000 units DAILY PO Last administered on at 10:46; Start 08/06/17 at 09:00 Miscellaneous Information ALL NURSING DEPARTME... UNSCH PRN .XX SEE LABEL COMMENTS; Start 08/05/17 at 11:58; Stop 08/06/17 at 11:57; Status DC Fluticasone Propionate (Flonase [place] Spr) 1 spray BID NASAL Last administered on 08/07/17at 10:47; Start 08/05/17 at 16:00 Sodium Chloride (Baby [place] Saline 0.65% Marco Antonio Drp/ [place]) 6 drop UNSCH PRN EACH NARE nasal congestion; Start 08/05/17 at 16:00 Fentanyl Citrate (fentaNYL INJ) 200 mcg STK-MED ONCE .ROUTE ; Start 08/05/17 at 18:10; Stop 08/05/17 at 18:11; Status DC Gabapentin (Neurontin) 900 mg QID PO Last administered on 08/07/17at 15:05; Start 08/06/17 at 09:00 Lidocaine HCl (Xylocaine-Mpf 1% Inj) 5 ml STK-MED ONCE OTHER ; Start 08/05/17 at 12:00; Stop 08/06/17 at 14:17; Status DC Phenylephrine HCl (Neosynephrine/ NS 1000 Mcg/10ml Syr) 1,000 mcg STK-MED ONCE IV ; Start 08/05/17 at 12:00; Stop 08/06/17 at 14:17; Status DC Ephedrine Sulfate (ePHEDrine/NS 25 MG/5 ML SYR) 25 mg STK-MED ONCE IV ; Start at 12:00; Stop 08/06/17 at 14:17; Status DC Dexamethasone Sodium Phosphate (Decadron Inj) 4 mg STK-MED ONCE IV ; Start at 12:00; Stop 08/06/17 at 14:17; Status DC Ondansetron HCl (Zofran Inj) 4 mg STK-MED ONCE IV PUSH ; Start 08/05/17 at 12:00 ; Stop 08/06/17 at 14:17; Status DC Propofol (Diprivan 200 Mg/20 ml Inj) 200 mg STK-MED ONCE IV ; Start 08/05/17 at 12:00; Stop 08/06/17 at 14:17; Status DC Lactated Ringer's 1,000 ml @ As Directed STK-MED ONCE IV ; Start 08/05/17 at 12: 00; Stop 08/06/17 at 14:17; Status DC Sodium Chloride 1,000 ml @ 999 mls/hr BOLUS ONCE IV Last administered on at 15:05; Start 08/07/17 at 14:45; Stop 08/07/17 at 15:45 A/P Problem List: (1) Femoral neck fracture ICD Code: S72.009A - Fracture of unspecified part of neck of unspecified femur , initial encounter for closed fracture Status: Acute (2) HTN (hypertension) ICD Code: I10 - Essential (primary) hypertension Status: Chronic Assessment and Plan 82-year-old female with history of hypertension, CKD stage III, chronic colitis , arthritis, anxiety/depression, and postherpetic neuralgia s/p shingles of RUE , presents with left hip pain s/p fall that occurred on 08/04/16 at 4pm. Left hip fracture -Status post left hip pinning on 08/05/2017 -Management per orthopedic. Dizziness -No episodes during hospitalization. -Sounds more like secondary to sinusitis. Continue Flonase and nasal saline washes. Hypotension -May be secondary to low oral intake. Will start IV fluids and give IV bolus. Will also hold off of any antihypertensive medication. Continue to monitor and treat accordingly. Hypertension: -Medication held secondary to hypotension. CKD, stage III: Cr 1.5, appears at patient's baseline -avoid nephrotoxins -monitor renal functions Postherpetic Neuralgia: s/p shingles January2017 -continue patient's gabapentin at lower dose of 300mg bid -patient follows with neurologist Dr. Hurley as outpatient Anxiety/Depression: chronic, stable -continue patient's sertraline DVT Prophylaxis: Lovenox. Problem Qualifiers (1) Femoral neck fracture: Qualified Codes: S72.001A - Fracture of unspecified part of neck of right femur , initial encounter for closed fracture Lindsey Lopez MD Aug 07, 2017 15:33
[2017-08-07] MEDS: SODIUM CHLOR 0.9% 1000 ML INJ 1,000 ML IV SCH ×2 (16:00→20:39)
[2017-08-07 16:54] LABS: MEAN CELL VOLUME 102.4 FL (80.0-100.0); MEAN CORPUSCULAR HEMOGLOBIN 33.6 PG (27.0-34.0); MEAN CORPUSCULAR HGB CONC 32.8 % (32.0-36.0); MEAN PLATELET VOLUME 8.4 FL (7.0-11.0); PLATELET COUNT 81 TH/MM3 (150-450); RED BLOOD COUNT 1.84 MIL/MM3 (4.00-5.30); RED CELL DISTRIBUTION WIDTH 12.4 % (11.6-17.2); WHITE BLOOD COUNT 4.2 TH/MM3 (4.0-11.0)
[2017-08-07 17:02] LABS: HEMATOCRIT 18.9 % (35.0-46.0); HEMOGLOBIN 6.2 GM/DL (11.6-15.3)
[2017-08-07 18:11] LABS: AUTOMATED NEUTROPHIL # 4.8 TH/MM3 (1.8-7.7); BASOPHIL % 0.5 % (0.0-2.0); EOSINOPHIL # 0.1 TH/MM3 (0-0.4); HEMOGLOBIN 10.5 GM/DL (11.6-15.3); LYMPH % 12.9 % (9.0-44.0); LYMPHOCYTE # 0.8 TH/MM3 (1.0-4.8); MEAN CELL VOLUME 101.1 FL (80.0-100.0); MEAN CORPUSCULAR HEMOGLOBIN 33.3 PG (27.0-34.0); MEAN CORPUSCULAR HGB CONC 32.9 % (32.0-36.0); MEAN PLATELET VOLUME 8.9 FL (7.0-11.0); MONO % 8.9 % (0.0-8.0); MONOCYTE # 0.6 TH/MM3 (0-0.9); NEUT % 75.7 % (16.0-70.0); PLATELET COUNT 139 TH/MM3 (150-450); RED BLOOD COUNT 3.17 MIL/MM3 (4.00-5.30); RED CELL DISTRIBUTION WIDTH 12.5 % (11.6-17.2); WHITE BLOOD COUNT 6.3 TH/MM3 (4.0-11.0)
[2017-08-07 18:42] LABS: BICARBONATE 20.4 MEQ/L (21.0-32.0); CALCIUM 8.1 MG/DL (8.5-10.1); CREATININE 2.03 MG/DL (0.50-1.00)
[2017-08-07 18:46] LABS: TROPONIN I 0.39 NG/ML (0.02-0.05)
[2017-08-08] VITALS (17 sets, daily range): BP systolic 98–123; BP diastolic 47–63; PULSE 66–103; RESP 12–20; TEMP 97.6–98.8; O2SAT 92–100
[2017-08-08] MEDS: ENOXAPARIN SODIUM 30 MG/0.3 ML SYRINGE SQ SCH (00:33)
[2017-08-08] MEDS: ACETAMINOPHEN/HYDROcodone 325 MG/5 MG TAB PO PRN (01:50)
[2017-08-08] MEDS: SODIUM CHLOR 0.9% 1000 ML INJ 1,000 ML IV SCH ×3 (02:41→15:20)
--- NOTE | 2017-08-08 08:47 | PD.CONS ---
HPI Consult Requested By Primary Care Physician Dell Soliz MD History of Present Illness 82-year-old female who has a history of hypertension, renal failure, anxiety and shingles. Admitted to [facility] after hip surgery in the setting of a Fall. Halicat called due to SBP 50s. Patient felt lightheadedness but no other symptoms. EKG showed T wave inversion. Troponin elevated. Transfer to [facility] for close monitoring. at nurse. Consulted for EKG changes and elevated troponin. Review of Systems Consitutional: DENIES: Fatigue, Fever, Chills, Weight gain, Weight loss Eyes: DENIES: Amaurosis Fugax, Change in vision HEENT: DENIES: Lightheadedness, Change in hearing Respiratory: DENIES: See HPI, Cough, Snoring, Shortness of breath, Wheezing, Sputum production Cardiovascular: DENIES: See HPI, Chest pain, Palpitations, Syncope, Tachycardia Gastrointestinal: DENIES: Nausea, Vomiting, Change in bowel habits, Reflux, Bloody stools, Melena Genitourinary: DENIES: Urinary incontinence, Difficulty voiding Integumentary: DENIES: Rash Neurologic: DENIES: Tingling or numbness, Memory problems, Poor Balance, Stroke symptoms Musculoskeletal: DENIES: Joint pain, Muscle pain, Limited range of motion, Back pain Psychiatric: DENIES: Anxiety, Depression, Sleep disturbances Hematologic: DENIES: Bruising tendencies, Bleeding tendencies Endocrine: DENIES: Weight gain, Weight loss, Thyroid disease Past Family Social History Allergies: Coded Allergies: diphenhydramine (Unverified Allergy, Severe, Hives, 08/04/17) hydroxyzine (Unverified Allergy, Severe, 08/04/17) loratadine (Unverified Allergy, Severe, Hives, 08/04/17) montelukast (Unverified Allergy, Severe, Hives, 08/04/17) fexofenadine (Unverified Allergy, Intermediate, HIVES, 08/04/17) prednisone (Verified Allergy, Unknown, 08/04/17) Uncoded Allergies: NO CT SCANS (Adverse Reaction, Mild, 05/27/12) Past Medical History 1. Hypertension 2. Renal failure 3. Colitis 4. Anxiety 5. Depression 6. Shingles 7. Hearing loss 8. Degenerative disease 9. Endometriosis Past Surgical History 1. Cholecystectomy 2. Appendectomy 3. Oophorectomy 4. Lumbar diskectomy Reported Medications Reported Meds & Active Scripts Active Baby [place] Saline Nasal (Sodium Chloride) 0.65 % [place] 6 Drop EACH NARE UNSCH PRN Fluticasone Nasal [place] 50 Mcg/Act Naspr 1 [place] NASAL BID 50 mcg/spray Calcium 600+D 200 (Calcium Carbonate-Vitamin D) 600-200 Mg-Unit Tab 1 Tab PO BID 30 Days Vitamin D3 (Cholecalciferol) 2,000 Unit Cap 2,000 Units PO DAILY 30 Days Ergocalciferol 50,000 Unit Cap 50,000 Units PO Q7D Xarelto (Rivaroxaban) 10 Mg Tab 10 Mg PO DAILY 14 Days Hydrocodone-Acetaminophen 7.5 Mg-325 Mg Tab 1 Tab PO Q4H PRN Walker/Adult/Folding (Device) 1 Mis Mis Ea .ROUTE DIRECTED Reported Gabapentin 300 Mg Cap 300 Mg PO QID Sertraline (Sertraline HCl) 50 Mg Tab 50 Mg PO DAILY Active Ordered Medications Current Medications Medications (Trade) Dose Ordered Sig/Levy Route Start Time Stop Time Status Last Admin (NS Flush) 2 ml UNSCH PRN IV FLUSH 08/04/17 22:30 08/05/17 13:15 (NS Flush) 2 ml BID IV FLUSH 08/05/17 09:00 08/07/17 19:27 (Tylenol) 650 mg Q4H PRN PO 08/04/17 22:30 (Zofran Inj) 4 mg Q6H PRN IVP 08/04/17 22:30 08/07/17 03:24 (Narcan Inj) 0.4 mg UNSCH PRN IV PUSH 08/04/17 22:30 (Thania-Colace) 1 tab BID PO 08/05/17 09:00 08/07/17 10:46 (Milk Of Magnesia Liq) 30 ml Q12H PRN PO 08/04/17 22:30 (Senokot) 17.2 mg Q12H PRN PO 08/04/17 22:30 (Dulcolax Supp) 10 mg DAILY PRN RECTAL 08/04/17 22:30 (Lactulose Liq) 30 ml DAILY PRN PO 08/04/17 22:30 (Zoloft) 50 mg DAILY PO 08/05/17 09:00 08/07/17 10:45 ([place] 5-325 Mg) 1 tab Q4H PRN PO 08/05/17 03:00 08/08/17 01:50 ([place] 7.5-325 Mg) 1 tab Q4H PRN PO 08/05/17 03:00 08/07/17 10:52 (Lovenox Inj) 30 mg Q24H SQ 08/06/17 00:00 08/08/17 00:33 (Vitamin D3) 5,000 units DAILY PO 08/06/17 09:00 08/07/17 10:46 (Flonase Marco Antonio Spr) 1 spray BID NASAL 08/05/17 16:00 08/07/17 10:47 (Baby [place] Saline 0.65% Marco Antonio Drp/ [place]) 6 drop UNSCH PRN EACH NARE 08/05/17 16:00 Sodium Chloride 1,000 ml @ 150 mls/hr Q6H40M IV 08/07/17 16:00 08/08/17 08:26 Family History Noncontributory. She denies any familial medical problems. Social History The patient quit smoking many years ago. She rarely drinks alcohol. She denies drug use. She lives at home with her . Physical Exam Vital Signs Vital Signs Date Time Temp Pulse Resp B/P (MAP) Pulse Ox O2 Delivery O2 Flow Rate FiO2 08/08/17 08:00 80 08/08/17 08:00 98.2 75 19 109/57 (74) 92 08/08/17 07:00 96 08/08/17 06:00 69 08/08/17 04:00 66 12 98/47 (64) 100 08/08/17 04:00 66 08/08/17 02:00 75 08/08/17 00:00 70 08/08/17 00:00 97.7 70 14 105/52 (69) 100 08/07/17 22:59 100 Nasal Cannula 2.00 08/07/17 22:00 74 08/07/17 20:00 97.8 84 16 89/42 (58) 99 08/07/17 20:00 84 08/07/17 19:00 99 Nasal Cannula 3.00 08/07/17 18:00 93 08/07/17 16:00 Nasal Cannula 3.00 08/07/17 16:00 92 08/07/17 16:00 97.5 88 18 101/54 (70) 91 08/07/17 12:00 96.3 86 17 82/44 (57) 91 Physical Exam GENERAL: Well-nourished, well-developed patient. SKIN: Warm and dry. HEAD: Normocephalic. EYES: No scleral icterus. No injection or drainage. NECK: Supple, trachea midline. No JVD or lymphadenopathy. CARDIOVASCULAR: Regular rate and rhythm without murmurs, gallops, or rubs. RESPIRATORY: Breath sounds equal bilaterally. No accessory muscle use. GASTROINTESTINAL: Abdomen soft, non-tender, nondistended. EXTREMITIES: No cyanosis, or edema. NEUROLOGICAL: Awake, alert, and oriented x 3. Non-focal. Laboratory Laboratory Tests Test 08/07/17 16:30 08/07/17 17:35 08/07/17 23:38 White Blood Count 4.2 6.3 Red Blood Count 1.84 3.17 Hemoglobin 6.2 10.5 Hematocrit 18.9 32.0 Mean Corpuscular Volume 102.4 101.1 Mean Corpuscular Hemoglobin 33.6 33.3 Mean Corpuscular Hemoglobin Concent 32.8 32.9 Red Cell Distribution Width 12.4 12.5 Platelet Count 81 139 Mean Platelet Volume 8.4 8.9 Lactic Acid Level 1.0 Neutrophils (%) (Auto) 75.7 Lymphocytes (%) (Auto) 12.9 Monocytes (%) (Auto) 8.9 Eosinophils (%) (Auto) 2.0 Basophils (%) (Auto) 0.5 Neutrophils # (Auto) 4.8 Lymphocytes # (Auto) 0.8 Monocytes # (Auto) 0.6 Eosinophils # (Auto) 0.1 Basophils # (Auto) 0.0 CBC Comment DIFF FINAL Differential Comment Blood Urea Nitrogen 40 Creatinine 2.03 Random Glucose 114 Calcium Level 8.1 Sodium Level 135 Potassium Level 4.6 Chloride Level 106 Carbon Dioxide Level 20.4 Anion Gap 9 Estimat Glomerular Filtration Rate 24 Troponin I 0.39 0.91 Result Diagram: 08/07/17173408/07/17 173 Imaging Last Impressions Hip X-Ray 08/05/17 0000 Signed Impressions: Service Date/Time: Saturday, August 05, 2017 11:38 - CONCLUSION: Anatomic alignment. Lorenzo Hemphill MD FACR Chest X-Ray 08/04/17 [id number] Signed Impressions: Service Date/Time: Friday, August 04, 2017 22:02 - CONCLUSION: 1. Bibasilar scarring versus subsegmental atelectasis. 2. Previous disease. 3. Eventration right hemidiaphragm. Kelechi Walker MD Knee X-Ray 08/04/17 0000 Signed Impressions: Service Date/Time: Friday, August 04, 2017 21:00 - CONCLUSION: Mild osteoarthritis without fracture. Kelechi Walker MD Hip and Pelvis X-Ray 08/04/17 0000 Signed Impressions: Service Date/Time: Friday, August 04, 2017 21:00 - CONCLUSION: Suspect impacted left femoral neck fracture. Kelechi Walker MD Assessment and Plan Problem List: (1) Elevated troponin ICD Codes: R74.8 - Abnormal levels of other serum enzymes Plan: 82 y/o F s/p ortho surgery consulted due to asymptomatic hypotension, sinus tachycardia and elevated troponin. No cardiac hx in the past. She denies chest pain, SOB, palpitations, syncope, PND or leg edema. No CBC this AM. Creatinine worsening; acute on chronic kidney failure. BP medications on hold getting IV hydration. Unfortunately given age and worsening renal function the risk of doing LHC +/- PCI outweighs the benefits. She remains at this time asymptomatic from CV standpoint, thus will recommend to treat with aggressive medical therapy with ASA, Heparin drip, statin, 2Decho, BB as BP tolerated, avoid nephrotoxic drugs and IV hydration. Recommendations: ASA, 81mg PO daily Heparin drip for 48Hrs Statin, 2Decho, Beta Blockers as BP tolerated, Lopressor 12.5mg PO BID Avoid nephrotoxic drugs and adjust medical therapy accordingly IV hydration. Get AM CBC and Labs Avoid electrolytes abnormalities Thank you for the opportunity to participate in the care of this patient (2) Stage 3 chronic kidney disease ICD Codes: N18.3 - Chronic kidney disease, stage 3 (moderate) Status: Chronic (3) HTN (hypertension) ICD Codes: I10 - Essential (primary) hypertension Status: Chronic (4) Fall at home ICD Codes: W19.XXXA - Unspecified fall, initial encounter; Y92.099 - Unspecified place in other non-institutional residence as the place of occurrence of the external cause Status: Acute Aquiles Loyd MD Aug 08, 2017 08:47
[2017-08-08] MEDS: DOCUSATE SODIUM 50 MG/SENNA 8.6 MG TAB PO SCH ×2 (09:00→20:27)
[2017-08-08] MEDS: SODIUM CHLORIDE 0.9% FLUSH 10 ML FLUSH IV FLUSH SCH ×2 (09:00→20:27)
[2017-08-08] MEDS: SERTRALINE HCL 50 MG TAB PO SCH (09:00)
[2017-08-08] MEDS: FLUTICASONE PROPIONATE 50 MCG/ACT 16 GM NASAL SPRAY NASAL SCH ×2 (10:16→20:26)
[2017-08-08] MEDS: CHOLECALCIFEROL (VIT D3) 5000 UNIT CAP PO SCH (10:16)
[2017-08-08] MEDS: ASPIRIN EC 81 MG TABEC PO SCH (10:30)
--- NOTE | 2017-08-08 12:54 | EKG ---
Date Performed: 08/07/2017 Time Performed: 16:14:50 PTAGE: 82 years EKG: Sinus rhythm LOW QRS VOLTAGE IN PRECORDIAL LEADS BORDERLINE ECG Since PREVIOUS TRACING , no significant change noted PREVIOUS TRACIN08/04/2017 21.57 DOCTOR: Jairo Almendarez Interpretating Date/Time 08/08/2017 12:53:55
--- NOTE | 2017-08-08 12:55 | EKG ---
Date Performed: 08/08/2017 Time Performed: 01:34:24 PTAGE: 82 years EKG: Sinus rhythm . Generalized low QRS voltages Borderline ECG PREVIOUS TRACING 08/07/2017 16.14.50 Since previous tracing, no significant change noted DOCTOR: Jairo Almendarez Interpretating Date/Time 08/08/2017 12:54:31
--- NOTE | 2017-08-08 14:08 | HHI.PR ---
Objective Vitals Vital Signs Date Time Temp Pulse Resp B/P (MAP) Pulse Ox O2 Delivery O2 Flow Rate FiO2 08/08/17 12:00 89 08/08/17 12:00 98.5 89 18 123/58 (79) 96 08/08/17 10:00 89 08/08/17 08:15 95 21 08/08/17 08:00 80 08/08/17 08:00 98.2 75 19 109/57 (74) 92 08/08/17 07:00 96 08/08/17 06:00 69 08/08/17 04:00 66 12 98/47 (64) 100 08/08/17 04:00 66 08/08/17 02:00 75 08/08/17 00:00 70 08/08/17 00:00 97.7 70 14 105/52 (69) 100 08/07/17 22:59 100 Nasal Cannula 2.00 08/07/17 22:00 74 08/07/17 20:00 97.8 84 16 89/42 (58) 99 08/07/17 20:00 84 08/07/17 19:00 99 Nasal Cannula 3.00 08/07/17 18:00 93 08/07/17 16:00 Nasal Cannula 3.00 08/07/17 16:00 92 08/07/17 16:00 97.5 88 18 101/54 (70) 91 I/O 08/07/17 08/07/17 08/07/17 08/08/17 08/08/17 08/08/17 07:00 15:00 23:00 07:00 15:00 23:00 Intake Total 240 ml 350 ml 3240 ml 1300 ml 950 ml Output Total 175 ml Balance 240 ml 350 ml 3240 ml 1125 ml 950 ml Intake Oral 240 ml 350 ml 240 ml 300 ml IV Total 3000 ml 1000 ml 950 ml Output Urine Total 175 ml Stool Total 0 ml # Voids 1 1 0 1 # Bowel Movements 0 0 0 Result Diagram: 08/07/17 1735 08/07/17 173 Objective Remarks GENERAL: in NAD CARDIOVASCULAR: Regular rate and rhythm without murmurs, gallops, or rubs. RESPIRATORY: Breath sounds equal bilaterally. No accessory muscle use. GASTROINTESTINAL: Abdomen soft, non-tender, nondistended. MUSCULOSKELETAL: No cyanosis, or edema. BACK: Nontender without obvious deformity. No CVA tenderness. A/P Problem List: (1) Femoral neck fracture ICD Code: S72.009A - Fracture of unspecified part of neck of unspecified femur , initial encounter for closed fracture Status: Acute (2) HTN (hypertension) ICD Code: I10 - Essential (primary) hypertension Status: Chronic Assessment and Plan 82-year-old female with history of hypertension, CKD stage III, chronic colitis , arthritis, anxiety/depression, and postherpetic neuralgia s/p shingles of RUE , presents with left hip pain s/p fall that occurred on 08/04/16 at 4pm. Left hip fracture -Status post left hip pinning on 08/05/2017 -Management per orthopedic. Dizziness -No episodes during hospitalization. -Sounds more like secondary to sinusitis. Continue Flonase and nasal saline washes. Hypotension -May be secondary to low oral intake. Will start IV fluids and give IV bolus. Will also hold off of any antihypertensive medication. Continue to monitor and treat accordingly. Hypertension: -Medication held secondary to hypotension. CKD, stage III: Cr 1.5, appears at patient's baseline -avoid nephrotoxins -monitor renal functions Postherpetic Neuralgia: s/p shingles January2017 -continue patient's gabapentin at lower dose of 300mg bid -patient follows with neurologist Dr. Hurley as outpatient Anxiety/Depression: chronic, stable -continue patient's sertraline DVT Prophylaxis: Lovenox. Problem Qualifiers (1) Femoral neck fracture: Qualified Codes: S72.001A - Fracture of unspecified part of neck of right femur , initial encounter for closed fracture Lindsey Lopez MD Aug 08, 2017 14:08
[2017-08-08] MEDS ORDERED: HEPARIN-D5W 25,000 U/250 ML 250 ML IV PRN (14:15)
[2017-08-08] MEDS: METOPROLOL TARTRATE 25 MG TAB PO SCH ×2 (15:24→20:26)
--- NOTE | 2017-08-08 15:38 | HHI.PR ---
Subjective Remarks f/u for hypotension patient blood pressure has been stable. She denied any CP, SOB, palpitations, lightheadedness or dizziness. Patient asking to go to rehab. She complaints about her right neuropathy since gabapentin was held due to hypotension and Acute on chronic renal failure. Her at the bedside during interview. Objective Vitals Vital Signs Date Time Temp Pulse Resp B/P (MAP) Pulse Ox O2 Delivery O2 Flow Rate FiO2 08/08/17 12:00 89 08/08/17 12:00 98.5 89 18 123/58 (79) 96 08/08/17 10:00 89 08/08/17 08:15 95 21 08/08/17 08:00 80 08/08/17 08:00 98.2 75 19 109/57 (74) 92 08/08/17 07:00 96 08/08/17 06:00 69 08/08/17 04:00 66 12 98/47 (64) 100 08/08/17 04:00 66 08/08/17 02:00 75 08/08/17 00:00 70 08/08/17 00:00 97.7 70 14 105/52 (69) 100 08/07/17 22:59 100 Nasal Cannula 2.00 08/07/17 22:00 74 08/07/17 20:00 97.8 84 16 89/42 (58) 99 08/07/17 20:00 84 08/07/17 19:00 99 Nasal Cannula 3.00 08/07/17 18:00 93 08/07/17 16:00 Nasal Cannula 3.00 08/07/17 16:00 92 08/07/17 16:00 97.5 88 18 101/54 (70) 91 I/O 08/07/17 08/07/17 08/07/17 08/08/17 08/08/17 08/08/17 07:00 15:00 23:00 07:00 15:00 23:00 Intake Total 240 ml 350 ml 3240 ml 1300 ml 950 ml 950 ml Output Total 175 ml Balance 240 ml 350 ml 3240 ml 1125 ml 950 ml 950 ml Intake Oral 240 ml 350 ml 240 ml 300 ml IV Total 3000 ml 1000 ml 950 ml 950 ml Output Urine Total 175 ml Stool Total 0 ml # Voids 1 1 0 1 # Bowel Movements 0 0 0 Result Diagram: 08/07/17 1735 08/07/17 1735 Objective Remarks GENERAL: in NAD CARDIOVASCULAR: Regular rate and rhythm without murmurs, gallops, or rubs. RESPIRATORY: Breath sounds equal bilaterally. No accessory muscle use. GASTROINTESTINAL: Abdomen soft, non-tender, nondistended. MUSCULOSKELETAL: No cyanosis, or edema. BACK: Nontender without obvious deformity. No CVA tenderness. Medications and IVs Current Medications Acetaminophen/ Hydrocodone Bitart ([place] 5-325 Mg) 2 tab ONCE ONCE PO Last administered on 08/04/17at 20:55; Start 08/04/17 at 20:45; Stop 08/04/17 at 20:46; Status DC Sodium Chloride (NS Flush) 2 ml UNSCH PRN IVF FLUSH AFTER USING IV ACCESS; Start 08/04/17 at 21:45; Stop 08/04/17 at 22:45; Status DC Sodium Chloride 1,000 ml @ 75 mls/hr [id number] IV Last administered on 08/04/17at 22:42; Start 08/04/17 at 22:27; Stop 08/07/17 at 15:54; Status DC Sodium Chloride (NS Flush) 2 ml UNSCH PRN IV FLUSH FLUSH AFTER USING IV ACCESS Last administered on 08/05/17at 13:15; Start 08/04/17 at 22:30 Sodium Chloride (NS Flush) 2 ml BID IV FLUSH Last administered on 08/08/17at 09: 00; Start 08/05/17 at 09:00 Acetaminophen (Tylenol) 650 mg Q4H PRN PO headache/fever/pain1-2; Start at 22:30 Ondansetron HCl (Zofran Inj) 4 mg Q6H PRN IVP NAUSEA OR VOMITING Last administered on 08/07/17at 03:24; Start 08/04/17 at 22:30 Naloxone HCl (Narcan Inj) 0.4 mg UNSCH PRN IV PUSH SEE LABEL COMMENTS; Start at 22:30 Senna/Docusate Sodium ([place]-Colace) 1 tab BID PO Last administered on 08/07/17at 10:46; Start 08/05/17 at 09:00 Magnesium Hydroxide (Milk Of Magnesia Liq) 30 ml Q12H PRN PO Mild constipation ; Start 08/04/17 at 22:30 Sennosides (Senokot) 17.2 mg Q12H PRN PO Moderate constipation; Start 08/04/17 at 22:30 Bisacodyl (Dulcolax Supp) 10 mg DAILY PRN RECTAL SEVERE CONSITIPATION; Start at 22:30 Lactulose (Lactulose Liq) 30 ml DAILY PRN PO SEVERE CONSITIPATION; Start at 22:30 Gabapentin (Neurontin) 300 mg Q12HR PO Last administered on 08/05/17at 21:47; Start 08/05/17 at 09:00; Stop 08/06/17 at 06:22; Status DC Losartan Potassium (Cozaar) 50 mg BID PO Last administered on 08/06/17at 20:13; Start 08/05/17 at 09:00; Stop 08/07/17 at 15:54; Status DC Nebivolol (Bystolic) 20 mg DAILY PO Last administered on 08/06/17at 10:09; Start 08/05/17 at 09:00; Stop 08/07/17 at 15:54; Status DC Sertraline HCl (Zoloft) 50 mg DAILY PO Last administered on 08/08/17at 09:00; Start 08/05/17 at 09:00 Morphine Sulfate (Morphine Inj) 2 mg Q4H PRN IV PUSH pain 6-10; Start 08/04/17 at 22:30; Stop 08/05/17 at 03:01; Status DC Lactated Ringer's 1,000 ml @ 30 mls/hr Q24H PRN IV SEE LABEL COMMENTS Last administered on 08/05/17at 09:04; Start 08/05/17 at 01:15; Stop 08/08/17 at 01:14; Status DC Sodium Chloride 500 ml @ 30 mls/hr [id number] PRN IV SEE LABEL COMMENTS; Start 08/05/17 at 01:15; Stop 08/08/17 at 01:14; Status DC Povidone Iodine (Betadine 5% Antisepsis Kit) [address] ADMINISTRATOR PRN EACH NARE SEE LABEL COMMENTS; Start 08/05/17 at 01:15; Stop 08/08/17 at 01:14; Status DC Chlorhexidine Gluconate (Chlorhexidine 2% Cloth) [address] ADMINISTRATOR PRN TOPICAL SEE LABEL COMMENTS; Start 08/05/17 at 01:15; Stop 08/08/17 at 01:14; Status DC Acetaminophen/ Hydrocodone Bitart ([place] 5-325 Mg) 1 tab Q4H PRN PO PAIN SCALE 3 TO 5 Last administered on 08/08/17at 01:50; Start 08/05/17 at 03:00 Acetaminophen/ Hydrocodone Bitart ([place] 7.5-325 Mg) 1 tab Q4H PRN PO PAIN SCALE 6 TO 10 Last administered on 08/07/17at 10:52; Start 08/05/17 at 03:00 Morphine Sulfate (Morphine Inj) 2 mg Q3H PRN IV PUSH BREAKTHROUGH PAIN; Start 08/05/17 at 03:00; Stop 08/07/17 at 15:54; Status DC Gabapentin (Neurontin) 300 mg ONCE ONCE PO Last administered on 08/05/17at 03:35 ; Start 08/05/17 at 03:30; Stop 08/05/17 at 03:31; Status DC Acetaminophen 100 ml @ As Directed STK-MED ONCE IV ; Start 08/05/17 at 10:03; Stop 08/05/17 at 10:04; Status DC Cefazolin Sodium (Ancef Inj) 2,000 mg STK-MED ONCE .ROUTE Last administered on 08/05/17at 11:20; Start 08/05/17 at 10:42; Stop 08/05/17 at 10:43; Status DC Gentamicin Sulfate (Gentamicin Inj) 240 mg STK-MED ONCE .ROUTE Last administered on 08/05/17at 11:40; Start 08/05/17 at 10:43; Stop 08/05/17 at 10:44; Status DC Vancomycin HCl (Vancomycin Inj) 1,000 mg STK-MED ONCE .ROUTE Last administered on 08/05/17at 11:22; Start 08/05/17 at 10:43; Stop 08/05/17 at 10:44; Status DC Bupivacaine HCl/ Epinephrine Bitart (Marcaine-Epi Pf 0.25% Inj) 30 ml STK-MED ONCE .ROUTE Last administered on 08/05/17at 11:38; Start 08/05/17 at 10:43; Stop 08/05/17 at 10:44; Status DC Miscellaneous Information (Post-op Orders (for Pharmacy)) STAT ONCE XX ; Start 08/05/17 at 12:15; Stop 08/05/17 at 12:16; Status DC Enoxaparin Sodium (Lovenox Inj) 30 mg Q24H SQ Last administered on 08/08/17at 00: 33; Start 08/06/17 at 00:00; Stop 08/08/17 at 14:07; Status DC Cefazolin Sodium 1000 mg/Sodium Chloride 100 ml @ 200 mls/hr Q6H IV Last administered on 08/06/17at 04:10; Start 08/05/17 at 17:00; Stop 08/06/17 at 05:29; Status DC Ergocalciferol (Drisdol) 50,000 units ONCE ONCE PO Last administered on at 13:15; Start 08/05/17 at 11:45; Stop 08/05/17 at 11:46; Status DC Cholecalciferol (Vitamin D3) 5,000 units DAILY PO Last administered on at 10:16; Start 08/06/17 at 09:00 Miscellaneous Information ALL NURSING DEPARTME... UNSCH PRN .XX SEE LABEL COMMENTS; Start 08/05/17 at 11:58; Stop 08/06/17 at 11:57; Status DC Fluticasone Propionate (Flonase [place] Spr) 1 spray BID NASAL Last administered on 08/08/17at 10:16; Start 08/05/17 at 16:00 Sodium Chloride (Baby [place] Saline 0.65% Marco Antonio Drp/ [place]) 6 drop UNSCH PRN EACH NARE nasal congestion; Start 08/05/17 at 16:00 Fentanyl Citrate (fentaNYL INJ) 200 mcg STK-MED ONCE .ROUTE ; Start 08/05/17 at 18:10; Stop 08/05/17 at 18:11; Status DC Gabapentin (Neurontin) 900 mg QID PO Last administered on 08/07/17at 15:05; Start 08/06/17 at 09:00; Stop 08/07/17 at 15:54; Status DC Lidocaine HCl (Xylocaine-Mpf 1% Inj) 5 ml STK-MED ONCE OTHER ; Start 08/05/17 at 12:00; Stop 08/06/17 at 14:17; Status DC Phenylephrine HCl (Neosynephrine/ NS 1000 Mcg/10ml Syr) 1,000 mcg STK-MED ONCE IV ; Start 08/05/17 at 12:00; Stop 08/06/17 at 14:17; Status DC Ephedrine Sulfate (ePHEDrine/NS 25 MG/5 ML SYR) 25 mg STK-MED ONCE IV ; Start at 12:00; Stop 08/06/17 at 14:17; Status DC Dexamethasone Sodium Phosphate (Decadron Inj) 4 mg STK-MED ONCE IV ; Start at 12:00; Stop 08/06/17 at 14:17; Status DC Ondansetron HCl (Zofran Inj) 4 mg STK-MED ONCE IV PUSH ; Start 08/05/17 at 12:00 ; Stop 08/06/17 at 14:17; Status DC Propofol (Diprivan 200 Mg/20 ml Inj) 200 mg STK-MED ONCE IV ; Start 08/05/17 at 12:00; Stop 08/06/17 at 14:17; Status DC Lactated Ringer's 1,000 ml @ As Directed STK-MED ONCE IV ; Start 08/05/17 at 12: 00; Stop 08/06/17 at 14:17; Status DC Sodium Chloride 1,000 ml @ 999 mls/hr BOLUS ONCE IV Last administered on at 15:05; Start 08/07/17 at 14:45; Stop 08/07/17 at 15:45; Status DC Sodium Chloride 1,000 ml @ 999 mls/hr BOLUS ONCE IV Last administered on at 16:00; Start 08/07/17 at 16:00; Stop 08/07/17 at 17:00; Status DC Sodium Chloride 1,000 ml @ 999 mls/hr BOLUS ONCE IV Last administered on at 16:00; Start 08/07/17 at 16:00; Stop 08/07/17 at 17:00; Status DC Sodium Chloride 1,000 ml @ 150 mls/hr Q6H40M IV Last administered on 08/08/17at 15:20; Start 08/07/17 at 16:00 Gabapentin (Neurontin) 300 mg BID PO ; Start 08/08/17 at 21:00 Aspirin (Ecotrin Ec) 81 mg DAILY PO Last administered on 08/08/17at 10:30; Start 08/08/17 at 09:30 Metoprolol Tartrate (Lopressor) 12.5 mg Q12HR PO ; Start 08/08/17 at 14:15 Heparin Sodium/ Dextrose 250 ml @ 9 mls/hr TITRATE PRN IV Coagulation Management; Start 08/08/17 at 14:15 A/P Problem List: (1) Femoral neck fracture ICD Code: S72.009A - Fracture of unspecified part of neck of unspecified femur , initial encounter for closed fracture Status: Acute (2) HTN (hypertension) ICD Code: I10 - Essential (primary) hypertension Status: Chronic Assessment and Plan 82-year-old female with history of hypertension, CKD stage III, chronic colitis , arthritis, anxiety/depression, and postherpetic neuralgia s/p shingles of RUE , presents with left hip pain s/p fall that occurred on 08/04/16 at 4pm. Left hip fracture -Status post left hip pinning on 08/05/2017 -Management per orthopedic. Hypotension -unsure etiology. ? CV but asymptomatic.elevated troponin 0.39, 0.91. Grizzly Worker consulted recommend hepatin gtt X 48 hours, ASA 81 PO Daily, statin , metoprolol 12.5 mg PO BID. Not a candidate for cardiac catheterization. Dizziness -No episodes during hospitalization. -Sounds more like secondary to sinusitis. Continue Flonase and nasal saline washes. Hypertension: -Medication held secondary to hypotension. Acute on CKD, stage III: Cr 1.5, appears at patient's baseline -avoid nephrotoxins -monitor renal functions Postherpetic Neuralgia: s/p shingles January2017 -due to renal failure need to decrease dosage. -patient follows with neurologist Dr. Hurley as outpatient Anxiety/Depression: chronic, stable -continue patient's sertraline DVT Prophylaxis: Lovenox. Problem Qualifiers (1) Femoral neck fracture: Qualified Codes: S72.001A - Fracture of unspecified part of neck of right femur , initial encounter for closed fracture Lindsey Lopez MD Aug 08, 2017 15:38
[2017-08-08 16:00] LABS: BICARBONATE 14.8 MEQ/L (21.0-32.0); CREATININE 1.55 MG/DL (0.50-1.00)
[2017-08-08 16:05] LABS: INTERNATIONAL NORMALIZED RATIO 1.2 RATIO; PROTHROMBIN TIME - PATIENT 12.6 SEC (9.8-11.6)
[2017-08-08 16:16] LABS: HEMATOCRIT 33.7 % (35.0-46.0); HEMOGLOBIN 11.2 GM/DL (11.6-15.3); MEAN CELL VOLUME 105.2 FL (80.0-100.0); MEAN CORPUSCULAR HEMOGLOBIN 34.8 PG (27.0-34.0); MEAN CORPUSCULAR HGB CONC 33.1 % (32.0-36.0); MEAN PLATELET VOLUME 9.1 FL (7.0-11.0); PLATELET COUNT 154 TH/MM3 (150-450); WHITE BLOOD COUNT 6.6 TH/MM3 (4.0-11.0)
[2017-08-08] MEDS: GABAPENTIN 300 MG CAP PO SCH (20:26)
[2017-08-09] VITALS (25 sets, daily range): BP systolic 146–162; BP diastolic 72–84; PULSE 70–100; RESP 18–20; TEMP 97.7–98.6; O2SAT 94–100
[2017-08-09 04:22] LABS: BICARBONATE 14.1 MEQ/L (21.0-32.0); CALCIUM 8.1 MG/DL (8.5-10.1); CREATININE 1.52 MG/DL (0.50-1.00)
[2017-08-09 04:24] LABS: CHOLESTEROL/ HDL RATIO 3.65 RATIO
[2017-08-09] MEDS: ASPIRIN EC 81 MG TABEC PO SCH (08:53)
[2017-08-09] MEDS: GABAPENTIN 300 MG CAP PO SCH ×2 (08:53→21:18)
[2017-08-09] MEDS: CHOLECALCIFEROL (VIT D3) 5000 UNIT CAP PO SCH (08:53)
[2017-08-09] MEDS: SODIUM CHLORIDE 0.9% FLUSH 10 ML FLUSH IV FLUSH SCH ×2 (08:53→21:00)
[2017-08-09] MEDS: METOPROLOL TARTRATE 25 MG TAB PO SCH ×2 (08:54→21:18)
[2017-08-09] MEDS: FLUTICASONE PROPIONATE 50 MCG/ACT 16 GM NASAL SPRAY NASAL SCH ×2 (08:55→21:00)
[2017-08-09] MEDS: DOCUSATE SODIUM 50 MG/SENNA 8.6 MG TAB PO SCH ×2 (08:56→21:00)
[2017-08-09] MEDS: SERTRALINE HCL 50 MG TAB PO SCH (08:56)
--- NOTE | 2017-08-09 12:37 | EKG ---
Date Performed: 08/08/2017 Time Performed: 11:38:21 PTAGE: 82 years EKG: Sinus rhythm LOW QRS VOLTAGE Minor nonspecific T-wave change ABNORMAL ECG PREVIOUS TRACING : 08/08/2017 01.34 Since previous tracing, there is slight increase in the T-w ave change. DOCTOR: Jairo Almendarez Interpretating Date/Time 08/09/2017 12:37:09
[2017-08-09] MEDS: ACETAMINOPHEN/HYDROcodone 325 MG/5 MG TAB PO PRN (16:02)
[2017-08-09] MEDS: SODIUM CHLOR 0.9% 1000 ML INJ 1,000 ML IV SCH ×2 (16:02→23:15)
--- NOTE | 2017-08-09 17:35 | ECHRPT ---
Indication: Coronary atherosclerosis CONCLUSIONS The left ventricular systolic function is normal with an estimated ejection fraction in the range of 60-65%. Normal left ventricular size. Mild concentric left ventricular hypertrophy. No regional wall motion abnormalities are present. The right atrial size is upper limits of normal. There is mild tricuspid valve regurgitation. The estimated pulmonary arterial pressure is 61 mmHg. BP: 152 / 84 HR: 106 Rhythm: Sinus MEASUREMENTS (Male / Female) Normal Values Technical Quality:Fair 2D ECHO LV Diastolic Diameter PLAX 2.4 cm 4.2 - 5.9 / 3.9 - 5.3 cm LV Systolic Diameter PLAX 1.7 cm IVS Diastolic Thickness 1.3 cm 0.6 - 1.0 / 0.6 - 0.9 cm LVPW Diastolic Thickness 1.3 cm 0.6 - 1.0 / 0.6 - 0.9 cm LV Relative Wall Thickness 1.1 RV Internal Dim ED PLAX 2.5 cm LVOT Diameter 1.6 cm LA Systolic Diameter LX 3.6 cm 3.0 - 4.0 / 2.7 - 3.8 cm M-MODE Aortic Root Diameter MM 2.2 cm AV Cusp Separation MM 1.7 cm DOPPLER AV Peak Velocity 117.0 cm/s AV Peak Gradient 5.5 mmHg LVOT Peak Velocity 89.3 cm/s LVOT Peak Gradient 3.2 mmHg AV Area Cont Eq pk 1.5 cm MV Area PHT 3.7 cm Mitral E Point Velocity 92.3 cm/s Mitral A Point Velocity 106.0 cm/s Mitral E to A Ratio 0.9 LV E' Lateral Velocity 5.3 cm/s Mitral E to LV E' Lateral Ratio 17.5 LV E' Septal Velocity 5.9 cm/s Mitral E to LV E' Septal Ratio 15.5 TR Peak Velocity 357.0 cm/s TR Peak Gradient 51.0 mmHg Right Atrial Pressure 10.0 mmHg Pulmonary Artery Systolic Pressu 61.0 mmHg Right Ventricular Systolic Press 61.0 mmHg PV Peak Velocity 85.5 cm/s PV Peak Gradient 2.9 mmHg FINDINGS LEFT VENTRICLE The left ventricular systolic function is normal with an estimated ejection fraction in the range of 60-65%. Normal left ventricular size. Mild concentric left ventricular hypertrophy. No regional wall motion abnormalities are present. RIGHT VENTRICLE Normal right ventricular size and systolic function. LEFT ATRIUM The left atrial size is normal. RIGHT ATRIUM The right atrial size is upper limits of normal. ATRIAL SEPTUM Normal atrial septal thickness without atrial level shunting by limited color doppler interrogation. AORTA The aortic root and proximal ascending aorta are normal in size on limited imaging. MITRAL VALVE Structurally normal mitral valve. No mitral valve stenosis or regurgitation. AORTIC VALVE Trileaflet aortic valve. No aortic valve stenosis or regurgitation. TRICUSPID VALVE Structurally normal tricuspid valve. There is mild tricuspid valve regurgitation. The estimated pulmonary arterial pressure is 61 mmHg. PULMONARY VALVE No pulmonary valve regurgitation or stenosis. VESSELS The inferior vena cava is normal in size. PERICARDIUM No pericardial effusion. Aquiles Loyd MD (Electronically Signed) Final Date:09 August 2017 17:34
--- NOTE | 2017-08-09 17:57 | HHI.PR ---
Subjective Remarks Pt relays that she had an episode yesterday of low heart rate which caused some shortness of breath, she was transferred to [facility] and cardiology was consulted. She has since been fine without any repeat episodes, but when troponin was checked yesterday it was initially elevated along with repeat values. Objective Vitals Vital Signs Date Time Temp Pulse Resp B/P (MAP) Pulse Ox O2 Delivery O2 Flow Rate FiO2 08/09/17 17:27 94 21 08/09/17 17:00 80 08/09/17 16:00 97.9 81 18 162/75 (104) 95 08/09/17 16:00 80 08/09/17 15:00 74 08/09/17 14:00 76 08/09/17 13:00 76 08/09/17 12:00 80 08/09/17 12:00 97.7 88 20 157/72 (100) 100 08/09/17 11:00 77 08/09/17 10:00 70 08/09/17 09:22 94 21 08/09/17 09:00 82 08/09/17 08:00 74 08/09/17 08:00 Room Air 08/09/17 08:00 88 20 157/72 (100) 100 08/09/17 07:00 82 08/09/17 06:00 93 08/09/17 04:00 80 08/09/17 03:44 98.1 85 20 152/84 (106) 96 08/09/17 03:00 84 08/09/17 02:00 84 08/09/17 01:00 100 08/09/17 00:00 72 08/08/17 23:43 98.8 87 20 110/63 (79) 93 08/08/17 23:00 90 08/08/17 22:00 86 08/08/17 21:00 Room Air 08/08/17 21:00 86 08/08/17 20:00 97.6 84 20 105/53 (70) 93 08/08/17 20:00 84 08/08/17 19:00 88 08/08/17 18:50 Room Air 08/08/17 18:00 75 I/O 08/08/17 08/08/17 08/08/17 08/09/17 08/09/17 08/09/17 07:00 15:00 23:00 07:00 15:00 23:00 Intake Total 1300 ml 950 ml 1550 ml 120 ml 960 ml Output Total 175 ml 400 ml 200 ml Balance 1125 ml 950 ml 1150 ml -80 ml 960 ml Intake Oral 300 ml 600 ml 120 ml 960 ml IV Total 1000 ml 950 ml 950 ml Output Urine Total 175 ml 400 ml 200 ml Stool Total 0 ml Emesis 0 ml # Voids 1 2 4 # Bowel Movements 1 2 Result Diagram: 08/08/17 1504 08/09/17 0342 Objective Remarks GENERAL: Well-nourished, well-developed patient, limited in ambulation following surgery, pain adequately controlled SKIN: Warm and dry. HEAD: Normocephalic. EYES: No scleral icterus. No injection or drainage. NECK: Supple, trachea midline. No JVD or lymphadenopathy. CARDIOVASCULAR: Regular rate and rhythm without murmurs, gallops, or rubs. RESPIRATORY: Breath sounds equal bilaterally. No accessory muscle use. GASTROINTESTINAL: Abdomen soft, non-tender, nondistended. MUSCULOSKELETAL: No cyanosis, or edema. BACK: Nontender without obvious deformity. No CVA tenderness. EXTREMITIES: A/P Problem List: (1) Femoral neck fracture ICD Code: S72.009A - Fracture of unspecified part of neck of unspecified femur , initial encounter for closed fracture Status: Acute (2) HTN (hypertension) ICD Code: I10 - Essential (primary) hypertension Status: Chronic Assessment and Plan Left hip fracture S/p left hip pinning on 08/05/2017 Ortho managing post op care Hypotension Resolved now, but elevated troponins seem associated Cardiology recommends 2D ECHO, ordered h/o HTN Meds held due to hypotension Postherpetic Neuralgia: s/p shingles January2017 Moved Neurontin up not to her baseline of 900mg QID, but fpc to 600mg TID Anxiety/Depression: chronic, stable Continue sertraline DVT Prophylaxis: Lovenox. Problem Qualifiers (1) Femoral neck fracture: Qualified Codes: S72.001A - Fracture of unspecified part of neck of right femur , initial encounter for closed fracture Sammy Donald MD Aug 09, 2017 17:57
[2017-08-10] VITALS (35 sets, daily range): BP systolic 128–196; BP diastolic 67–100; PULSE 72–96; RESP 16–22; TEMP 97.9–98.5; O2SAT 94–99
[2017-08-10] MEDS: DOCUSATE SODIUM 50 MG/SENNA 8.6 MG TAB PO SCH ×2 (09:00→21:00)
[2017-08-10] MEDS: FLUTICASONE PROPIONATE 50 MCG/ACT 16 GM NASAL SPRAY NASAL SCH ×2 (09:00→21:32)
--- NOTE | 2017-08-10 10:20 | PD.CARD.PN ---
Subjective Subjective Remarks No CV complaints Objective Medications Current Medications Medications (Trade) Dose Ordered Sig/Levy Route Start Time Stop Time Status Last Admin (NS Flush) 2 ml UNSCH PRN IV FLUSH 08/04/17 22:30 08/05/17 13:15 (NS Flush) 2 ml BID IV FLUSH 08/05/17 09:00 08/09/17 21:00 (Tylenol) 650 mg Q4H PRN PO 08/04/17 22:30 (Zofran Inj) 4 mg Q6H PRN IVP 08/04/17 22:30 08/07/17 03:24 (Narcan Inj) 0.4 mg UNSCH PRN IV PUSH 08/04/17 22:30 ([place]ania-Colace) 1 tab BID PO 08/05/17 09:00 08/07/17 10:46 (Milk Of Magnesia Liq) 30 ml Q12H PRN PO 08/04/17 22:30 (Senokot) 17.2 mg Q12H PRN PO 08/04/17 22:30 (Dulcolax Supp) 10 mg DAILY PRN RECTAL 08/04/17 22:30 (Lactulose Liq) 30 ml DAILY PRN PO 08/04/17 22:30 (Zoloft) 50 mg DAILY PO 08/05/17 09:00 08/09/17 08:56 ([place] 5-325 Mg) 1 tab Q4H PRN PO 08/05/17 03:00 08/09/17 16:02 ([place] 7.5-325 Mg) 1 tab Q4H PRN PO 08/05/17 03:00 08/07/17 10:52 (Vitamin D3) 5,000 units DAILY PO 08/06/17 09:00 08/09/17 08:53 (Flonase Marco Antonio Spr) 1 spray BID NASAL 08/05/17 16:00 08/09/17 21:00 (Baby [place] Saline 0.65% Marco Antonio Drp/ [place]) 6 drop UNSCH PRN EACH NARE 08/05/17 16:00 Sodium Chloride 1,000 ml @ 70 mls/hr [id number] IV 08/07/17 16:00 08/09/17 16:02 (Ecotrin Ec) 81 mg DAILY PO 08/08/17 09:30 08/09/17 08:53 (Lopressor) 12.5 mg Q12HR PO 08/08/17 14:15 08/09/17 21:18 Heparin Sodium/ Dextrose 250 ml @ 9 mls/hr TITRATE PRN IV 08/08/17 14:15 08/08/17 16:10 (Neurontin) 600 mg BID PO 08/09/17 21:00 08/09/17 21:18 Vital Signs / I&O Vital Signs Date Time Temp Pulse Resp B/P (MAP) Pulse Ox O2 Delivery O2 Flow Rate FiO2 08/10/17 08:00 98.2 84 18 171/81 (111) 95 08/10/17 07:41 98 08/10/17 07:00 80 08/10/17 06:41 81 08/10/17 05:05 72 08/10/17 04:34 97.9 77 128/69 (88) 94 08/10/17 04:00 76 08/10/17 03:00 78 08/10/17 02:00 72 08/10/17 01:00 76 08/10/17 00:45 Room Air 21 08/10/17 00:00 74 08/10/17 00:00 98.5 76 138/72 (94) 96 08/09/17 23:00 72 08/09/17 22:00 70 08/09/17 21:00 72 08/09/17 20:00 74 08/09/17 20:00 98.6 76 146/78 (100) 96 08/09/17 19:00 72 08/09/17 17:27 94 21 08/09/17 17:00 80 08/09/17 16:00 97.9 81 18 162/75 (104) 95 08/09/17 16:00 80 08/09/17 15:00 74 08/09/17 14:00 76 08/09/17 13:00 76 08/09/17 12:00 80 08/09/17 12:00 97.7 88 20 157/72 (100) 100 08/09/17 11:00 77 I/O 08/09/17 08/09/17 08/09/17 08/10/17 08/10/17 08/10/17 07:00 15:00 23:00 07:00 15:00 23:00 Intake Total 120 ml 960 ml 240 ml Output Total 200 ml 350 ml Balance -80 ml 960 ml -110 ml Intake Oral 120 ml 960 ml 240 ml Output Urine Total 200 ml 350 ml Emesis 0 ml # Voids 4 # Bowel Movements 1 2 Physical Exam GENERAL: Well-nourished, well-developed patient. SKIN: Warm and dry. HEAD: Normocephalic. EYES: No scleral icterus. No injection or drainage. NECK: Supple, trachea midline. No JVD or lymphadenopathy. CARDIOVASCULAR: Regular rate and rhythm without murmurs, gallops, or rubs. RESPIRATORY: Breath sounds equal bilaterally. No accessory muscle use. GASTROINTESTINAL: Abdomen soft, non-tender, nondistended. EXTREMITIES: No cyanosis, or edema. NEUROLOGICAL: Awake, alert, and oriented x 3. Non-focal. Laboratory Laboratory Tests Test 08/10/17 04:25 Activated Partial Thromboplast Time 59.3 SEC Imaging Last Impressions Hip X-Ray 08/05/17 0000 Signed Impressions: Service Date/Time: Saturday, August 05, 2017 11:38 - CONCLUSION: Anatomic alignment. Lorenzo Hemphill MD FACR Chest X-Ray [id number] Signed Impressions: Service Date/Time: Friday, August 04, 2017 22:02 - CONCLUSION: 1. Bibasilar scarring versus subsegmental atelectasis. 2. Previous disease. 3. Eventration right hemidiaphragm. Keelchi Walker MD Knee X-Ray 08/04/17 0000 Signed Impressions: Service Date/Time: Friday, August 04, 2017 21:00 - CONCLUSION: Mild osteoarthritis without fracture. Kelechi Walker MD Hip and Pelvis X-Ray 08/04/17 0000 Signed Impressions: Service Date/Time: Friday, August 04, 2017 21:00 - CONCLUSION: Suspect impacted left femoral neck fracture. Kelechi Walker MD Assessment and Plan Problem List: (1) Elevated troponin ICD Codes: R74.8 - Abnormal levels of other serum enzymes Plan: 82 y/o F s/p ortho surgery consulted due to asymptomatic hypotension, sinus tachycardia and elevated troponin. No cardiac hx in the past. She denies chest pain, SOB, palpitations, syncope, PND or leg edema. No CBC this AM. Creatinine trending down, acute on chronic kidney failure. I have re-address the need for LHC +/- PCI and she DECLINES due to the risk of worsening kidney. She remains at this time asymptomatic from CV standpoint. ECHO EF 60% Recommendations: ASA, 81mg PO daily Start Plavix 75mg PO daily Stop Heparin drip Statin, Beta Blockers as BP tolerated, Lopressor 12.5mg PO BID Avoid nephrotoxic drugs and adjust medical therapy accordingly Avoid electrolytes abnormalities Cont trending troponin (2) Stage 3 chronic kidney disease ICD Codes: N18.3 - Chronic kidney disease, stage 3 (moderate) Status: Chronic (3) HTN (hypertension) ICD Codes: I10 - Essential (primary) hypertension Status: Chronic (4) Fall at home ICD Codes: W19.XXXA - Unspecified fall, initial encounter; Y92.099 - Unspecified place in other non-institutional residence as the place of occurrence of the external cause Status: Acute Aquiles Loyd MD Aug 10, 2017 10:19
[2017-08-10] MEDS: CHOLECALCIFEROL (VIT D3) 5000 UNIT CAP PO SCH (10:33)
[2017-08-10] MEDS: SODIUM CHLORIDE 0.9% FLUSH 10 ML FLUSH IV FLUSH SCH ×2 (10:33→21:32)
[2017-08-10] MEDS: METOPROLOL TARTRATE 25 MG TAB PO SCH ×2 (10:33→21:32)
[2017-08-10] MEDS: GABAPENTIN 300 MG CAP PO SCH ×2 (10:34→21:32)
[2017-08-10] MEDS: ASPIRIN EC 81 MG TABEC PO SCH (10:34)
[2017-08-10] MEDS: SERTRALINE HCL 50 MG TAB PO SCH (10:34)
[2017-08-10] MEDS: CLOPIDOGREL 75 MG TAB PO SCH (12:30)
[2017-08-10] MEDS ORDERED: hydrALAZINE HCL 20 MG/ML VIAL IV PUSH PRN (13:30)
--- NOTE | 2017-08-10 13:48 | HHI.PR ---
Subjective Remarks Seen this morning. Says she is feeling all right. She is very upset after talking with cardiology this morning. She has decided not to go through cardiac catheterization due to risk on her kidneys. She denies any chest pain currently. Objective Vital Signs Date Time Temp Pulse Resp B/P (MAP) Pulse Ox O2 Delivery O2 Flow Rate FiO2 08/10/17 12:00 82 22 170/89 (116) 94 08/10/17 08:00 98.2 84 18 171/81 (111) 95 08/10/17 07:41 98 08/10/17 07:00 80 08/10/17 06:41 81 08/10/17 05:05 72 08/10/17 04:34 97.9 77 128/69 (88) 94 08/10/17 04:00 76 08/10/17 03:00 78 08/10/17 02:00 72 08/10/17 01:00 76 08/10/17 00:45 Room Air 21 08/10/17 00:00 74 08/10/17 00:00 98.5 76 138/72 (94) 96 08/09/17 23:00 72 08/09/17 22:00 70 08/09/17 21:00 72 08/09/17 20:00 74 08/09/17 20:00 98.6 76 146/78 (100) 96 08/09/17 19:00 72 08/09/17 17:27 94 21 08/09/17 17:00 80 08/09/17 16:00 97.9 81 18 162/75 (104) 95 08/09/17 16:00 80 08/09/17 15:00 74 08/09/17 14:00 76 I/O 08/09/17 08/09/17 08/09/17 08/10/17 08/10/17 08/10/17 07:00 15:00 23:00 07:00 15:00 23:00 Intake Total 120 ml 960 ml 240 ml 525 ml Output Total 200 ml 350 ml Balance -80 ml 960 ml -110 ml 525 ml Intake Oral 120 ml 960 ml 240 ml IV Total 525 ml Output Urine Total 200 ml 350 ml Emesis 0 ml # Voids 4 # Bowel Movements 1 2 Result Diagram: 08/08/17 1504 08/09/17 0342 Objective Remarks GENERAL: Sitting up in bed. Appears comfortable. SKIN: Warm and dry. HEAD: Normocephalic. EYES: No scleral icterus. No injection or drainage. NECK: Supple, trachea midline. No JVD. CARDIOVASCULAR: Regular rate and rhythm without murmurs, gallops, or rubs. RESPIRATORY: Breath sounds equal bilaterally. No accessory muscle use. GASTROINTESTINAL: Abdomen soft, non-tender, nondistended. MUSCULOSKELETAL: No cyanosis area trace peripheral edema. BACK: Nontender without obvious deformity. No CVA tenderness. A/P Assessment and Plan //Femoral neck fracture ICD Code: S72.009A - Fracture of unspecified part of neck of unspecified femur , initial encounter for closed fracture Status: Acute = Postop percutaneous pinningon 08/05/2017. Or so cleared for DC to SN[facility]. Follow -up with Dr. Irwin in 2 weeks. //HTN (hypertension) ICD Code: I10 - Essential (primary) hypertension Status: Chronic Assessment and Plan = 08/10. Blood pressure somewhat elevated. Discontinue IV fluids. Start hydralazine as needed. //Hypotension Resolved now. likely was secondary to gabapentin toxicity. //Non-anion gap metabolic acidosis. Repeat labs pending. //Postherpetic Neuralgia: s/p shingles January2017 Moved Neurontin up not to her baseline of 900mg QID, but skilled nursing to 600mg TID //Anxiety/Depression: chronic, stable Continue sertraline //DVT Prophylaxis: Lovenox. Discharge Planning Follow-up labs. Patient may be able to go to inpatient rehabilitation tomorrow. Ike Morrow MD Aug 10, 2017 13:48
[2017-08-10 15:13] LABS: ALBUMIN 3.6 GM/DL (3.4-5.0); ALT (GPT) 93 U/L (10-53); AST (GOT) 106 U/L (15-37); BICARBONATE 15.9 MEQ/L (21.0-32.0); BLOOD UREA NITROGEN 27 MG/DL (7-18); CHLORIDE 112 MEQ/L (98-107); CREATININE 1.26 MG/DL (0.50-1.00); GLOMERULAR FILTRATION RATE 41 ML/MIN (>89); GLUCOSE,RANDOM 93 MG/DL (74-106); PHOSPHORUS 2.4 MG/DL (2.5-4.9); SODIUM (NA) 140 MEQ/L (136-145)
[2017-08-10 15:15] LABS: ALKALINE PHOSPHATASE 242 U/L (45-117); TOTAL BILIRUBIN ADULT 0.6 MG/DL (0.2-1.0); TOTAL PROTEIN 7.5 GM/DL (6.4-8.2)
[2017-08-10] MEDS: ACETAMINOPHEN/HYDROcodone 325 MG/5 MG TAB PO PRN (17:08)
[2017-08-10] MEDS ORDERED: FUROSEMIDE 20 MG/2 ML VIAL IV PUSH ONE (17:30)
[2017-08-10] MEDS ORDERED: LIDOCAINE HCL 5% PATCH T-DERMAL ONE (21:00)
[2017-08-10 22:13] LABS: RHEUMATOID FACTOR SCREEN NEGATIVE (NEGATIVE)
[2017-08-11] VITALS (12 sets, daily range): BP systolic 142–156; BP diastolic 67–79; PULSE 71–92; RESP 16; TEMP 98–98.1; O2SAT 98
--- NOTE | 2017-08-11 02:43 | RADRPT ---
EXAM DATE/TIME: 08/11/2017 01:31 [place] COMPARISON: No previous studies available for comparison. INDICATIONS : Bilateral lower extremity edema. MEDICAL HISTORY : Hypertension. Hypercholesterolemia. Colitis. Kidney disease. SURGICAL HISTORY : Appendectomy.Cholecystectomy. Kidney stones removed. Spinal surgery. Lysis of adhesions. ENCOUNTER: Initial ACUITY: 1 day PAIN SCORE: 0/10 LOCATION: Bilateral legs. TECHNIQUE: Venous ultrasound of the left and right leg was performed from the inguinal ligament to the proximal calf. Real-time, color Doppler and spectral tracing, compression and augmentation techniques were us ed. FINDINGS: RIGHT LEG: There is normal compressibility of the deep venous system from the inguinal region to the proximal ca lf. No echogenic clot is seen in the lumen of the common femoral, femoral, popliteal, and posterior tibial veins. There is a normal response of the venous system to proximal and distal augmentation an d respiration. LEFT LEG: There is normal compressibility of the deep venous system from the inguinal region to the proximal ca lf. No echogenic clot is seen in the lumen of the common femoral, femoral, popliteal, and posterior tibial veins. There is a normal response of the venous system to proximal and distal augmentation an d respiration. CONCLUSION: 1. No evidence of deep venous thrombosis. Vaughn Rutledge MD on August 11, 2017 at 2:41 Board Certified Radiologist. This report was verified electronically.
[2017-08-11 07:01] LABS: AUTOMATED NEUTROPHIL # 4.6 TH/MM3 (1.8-7.7); BASOPHIL # 0.1 TH/MM3 (0-0.2); BASOPHIL % 1.1 % (0.0-2.0); EOSINOPHIL # 0.2 TH/MM3 (0-0.4); EOSINOPHIL % 2.7 % (0.0-4.0); HEMATOCRIT 29.6 % (35.0-46.0); HEMOGLOBIN 10.1 GM/DL (11.6-15.3); LYMPH % 17.6 % (9.0-44.0); LYMPHOCYTE # 1.2 TH/MM3 (1.0-4.8); MEAN CORPUSCULAR HEMOGLOBIN 34.2 PG (27.0-34.0); MEAN CORPUSCULAR HGB CONC 34.2 % (32.0-36.0); MEAN PLATELET VOLUME 8.8 FL (7.0-11.0); MONO % 11.4 % (0.0-8.0); MONOCYTE # 0.8 TH/MM3 (0-0.9); NEUT % 67.2 % (16.0-70.0); PLATELET COUNT 216 TH/MM3 (150-450); RED BLOOD COUNT 2.96 MIL/MM3 (4.00-5.30); RED CELL DISTRIBUTION WIDTH 12.7 % (11.6-17.2); WHITE BLOOD COUNT 6.8 TH/MM3 (4.0-11.0)
[2017-08-11 07:27] LABS: ALBUMIN 2.9 GM/DL (3.4-5.0); BICARBONATE 17.8 MEQ/L (21.0-32.0); CALCIUM 8.8 MG/DL (8.5-10.1); CREATININE 1.25 MG/DL (0.50-1.00); MAGNESIUM 1.9 MG/DL (1.5-2.5); PHOSPHORUS 3.1 MG/DL (2.5-4.9)
[2017-08-11] MEDS: GABAPENTIN 300 MG CAP PO SCH (08:56)
[2017-08-11] MEDS: CLOPIDOGREL 75 MG TAB PO SCH (08:57)
[2017-08-11] MEDS: METOPROLOL TARTRATE 25 MG TAB PO SCH (08:57)
[2017-08-11] MEDS: DOCUSATE SODIUM 50 MG/SENNA 8.6 MG TAB PO SCH (08:57)
[2017-08-11] MEDS: CHOLECALCIFEROL (VIT D3) 5000 UNIT CAP PO SCH (08:57)
[2017-08-11] MEDS: SERTRALINE HCL 50 MG TAB PO SCH (08:58)
[2017-08-11] MEDS: SODIUM CHLORIDE 0.9% FLUSH 10 ML FLUSH IV FLUSH SCH (08:58)
[2017-08-11] MEDS: ASPIRIN EC 81 MG TABEC PO SCH (08:58)
[2017-08-11] MEDS: FLUTICASONE PROPIONATE 50 MCG/ACT 16 GM NASAL SPRAY NASAL SCH (08:59)
[2017-08-11] MEDS ORDERED: NIFEdipine 30 MG SUSTAINED RELEASE TAB PO ONE (09:30)
[2017-08-11] MEDS ORDERED: hydrALAZINE HCL 25 MG TAB PO ONE (09:30)
[2017-08-11] MEDS ORDERED: NIFE30TA8 PO (13:50)
[2017-08-11] MEDS ORDERED: HYDR-3800 PO (13:50)
[2017-08-11] MEDS ORDERED: METO25TA3 PO (13:50)
[2017-08-11] MEDS ORDERED: PLAV75TA29 PO (13:50)
[2017-08-11] MEDS ORDERED: FURO20TA PO (13:50)
[2017-08-11] MEDS ORDERED: hydrALAZINE HCL 50 MG TAB PO SCH (14:00)
--- NOTE | 2017-08-11 14:00 | HHI.PR ---
Subjective Remarks Patient reported feeling short of breath yesterday, however says that this is resolved. She feels much better today. Objective Vital Signs Date Time Temp Pulse Resp B/P (MAP) Pulse Ox O2 Delivery O2 Flow Rate FiO2 08/11/17 11:37 75 08/11/17 11:00 98.1 78 16 142/67 (92) 98 08/11/17 10:13 98 21 08/11/17 10:00 97 Room Air 08/11/17 08:00 98.0 74 16 145/67 (93) 98 08/11/17 08:00 80 08/11/17 08:00 98 Nasal Cannula 2.00 08/11/17 06:00 73 08/11/17 05:00 75 08/11/17 04:00 72 08/11/17 03:30 98.0 82 16 156/79 (104) 98 08/11/17 03:00 74 08/11/17 02:00 75 08/11/17 01:00 71 08/11/17 00:00 92 08/10/17 23:30 98.1 81 16 146/76 (99) 97 08/10/17 23:00 72 08/10/17 22:00 78 08/10/17 21:00 88 08/10/17 21:00 149/76 (100) 08/10/17 20:00 82 08/10/17 20:00 99 Nasal Cannula 2.00 08/10/17 19:30 151/67 (95) 08/10/17 19:30 98.0 90 18 151/67 (95) 99 08/10/17 19:00 94 08/10/17 18:00 96 08/10/17 17:00 88 08/10/17 17:00 174/84 (114) 08/10/17 16:31 196/95 (128) 08/10/17 16:30 179/100 (126) 08/10/17 16:30 96 Nasal Cannula 2.00 08/10/17 16:00 82 22 174/84 (114) 98 08/10/17 16:00 82 08/10/17 15:00 94 08/10/17 14:30 165/76 (105) 08/10/17 14:30 166/75 (105) 08/10/17 14:00 92 I/O 08/10/17 08/10/17 08/10/17 08/11/17 08/11/17 08/11/17 07:00 15:00 23:00 07:00 15:00 23:00 Intake Total 240 ml 525 ml 240 ml Output Total 350 ml 1675 ml Balance -110 ml 525 ml -1435 ml Intake Oral 240 ml 240 ml IV Total 525 ml Output Urine Total 350 ml 1675 ml # Bowel Movements 0 Result Diagram: 08/11/1744608/11/17446 Objective Remarks GENERAL: Up in chair at bedside. Appears calm. Appears comfortable. SKIN: Warm and dry. HEAD: Normocephalic. EYES: No scleral icterus. No injection or drainage. NECK: Supple, trachea midline. No JVD. CARDIOVASCULAR: Regular rate and rhythm without murmurs, gallops, or rubs. RESPIRATORY: Breath sounds equal bilaterally. No accessory muscle use. GASTROINTESTINAL: Abdomen soft, non-tender, nondistended. MUSCULOSKELETAL: No cyanosis. +1 peripheral edema unchanged from yesterday BACK: Nontender without obvious deformity. No CVA tenderness. A/P Assessment and Plan //Femoral neck fracture ICD Code: S72.009A - Fracture of unspecified part of neck of unspecified femur , initial encounter for closed fracture Status: Acute = Postop percutaneous pinningon 08/05/2017. ortho cleared for DC to [facility]. Follow -up with Dr. Irwin in 2 weeks. //HTN (hypertension) ICD Code: I10 - Essential (primary) hypertension Status: Chronic Assessment and Plan = 08/10. Blood pressure somewhat elevated. Discontinue IV fluids. Start hydralazine as needed. //Pulmonary hypertension suspected -As seen on echocardiogram. Pulmonology consulted. Can follow at [facility]. -Continue Lasix 20 twice daily, fluid restriction to 1500 mL. Afterload reduction with BP meds as ordered. -She will benefit from continued diuresis, however Lasix may need to be tapered down within the next week to avoid dehydration. //Non-anion gap metabolic acidosis. Expect to improve further with diuresis. //Postherpetic Neuralgia: s/p shingles January2017 Neurontin 300 4 times a day. Recommend avoiding any higher dose due to kidney dysfunction.. //Anxiety/Depression: chronic, stable Continue sertraline //DVT Prophylaxis: Lovenox. Discharge Planning dc to inpatient rehabilitation. Continue diuresis. Follow with pulmonology and cardiology. Follow with Ortho in 2 weeks. Ike Morrow MD Aug 11, 2017 14:00
--- NOTE | 2017-08-11 14:01 | HHI.DS ---
Discharge Summary Admission Date Aug 04, 2017 at 22:29 Discharge Date: Aug 11, 2017 Admitting Diagnosis Left Femoral Neck Fracture. (1) Femoral neck fracture ICD Code: S72.009A - Fracture of unspecified part of neck of unspecified femur , initial encounter for closed fracture Status: Acute (2) HTN (hypertension) ICD Code: I10 - Essential (primary) hypertension Status: Chronic (3) Pulmonary hypertension ICD Code: I27.20 - Pulmonary hypertension, unspecified Procedures No invasive procedures. Recent left hip fracture pinning by orthopedics. Brief History - From Admission 82-year-old female with history of hypertension, CKD stage III, chronic colitis , arthritis, anxiety/depression, and postherpetic neuralgia s/p shingles of RUE , presents with left hip pain s/p fall that occurred on 08/04/16 at 4pm. The patient explains she walked outside to get her mail, dropped her mail on the ground, leaned forward to case picker the mail when she became acutely dizzy, fell forward, and landed on her left hip. Denies hitting her head or any loss of consciousness. She reports immediate left hip pain after the fall, worse at the left anterior groin with radiation throughout the left hip and down the left thigh, described as constant 10/10 pain, worse with any movement. She was not able to ambulate after the fall. She flagged down a neighbor who then alerted her , and they were able to get her into the vehicle to bring her to the [facility] ER. Denies any chest pain, palpitations, or shortness of breath associated with the fall. She states she did get dizzy earlier in the day but it went away on its own. She states she has occasional dizziness which she attributes to her gabapentin. She has been on gabapentin since January2017 when she had shingles of the right arm. Since her arrival to the ER, left hip x-ray showed impacted left femoral neck fracture. ER M.Ni discussed with orthopedics Victoriano Cheung PA-C who recommended transfer to [facility] for surgical intervention in the am. The patient was given [place] with moderate relief of her pain. She would like to avoid narcotics as much as possible and does not want any IV morphine. She is requesting her gabapentin be continued. She is agreeable to short term rehab after surgery if necessary. Prior to the fall, she ambulated independently without any assist device. CBC/BMP: 08/11/177 08/11/17 0447 Significant Findings Laboratory Tests Test 08/08/17 15:04 08/08/17 15:06 08/08/17 22:20 08/09/17 03:42 Red Blood Count 3.20 MIL/MM3 (4.00-5.30) Hemoglobin 11.2 GM/DL (11.6-15.3) Hematocrit 33.7 % (35.0-46.0) Mean Corpuscular Volume 105.2 FL (80.0-100.0) Mean Corpuscular Hemoglobin 34.8 PG (27.0-34.0) Prothrombin Time 12.6 SEC (9.8-11.6) Blood Urea Nitrogen 40 MG/DL (7-18) 41 MG/DL (7-18) Creatinine 1.55 MG/DL (0.50-1.00) 1.52 MG/DL (0.50-1.00) Calcium Level 8.0 MG/DL (8.5-10.1) 8.1 MG/DL (8.5-10.1) Chloride Level 111 MEQ/L (98-107) 112 MEQ/L (98-107) Carbon Dioxide Level 14.8 MEQ/L (21.0-32.0) 14.1 MEQ/L (21.0-32.0) Estimat Glomerular Filtration Rate 32 ML/MIN (>89) 33 ML/MIN (>89) Troponin I 0.94 NG/ML (0.02-0.05) Activated Partial Thromboplast Time 47.8 SEC (24.3-30.1) 62.3 SEC (24.3-30.1) Test 08/10/17 04:25 08/10/17 14:08 08/10/17 17:11 08/10/17 19:20 Activated Partial Thromboplast Time 59.3 SEC (24.3-30.1) Blood Urea Nitrogen 27 MG/DL (7-18) Creatinine 1.26 MG/DL (0.50-1.00) Phosphorus Level 2.4 MG/DL (2.5-4.9) Alkaline Phosphatase 242 U/L (45-117) Aspartate Amino Transf (AST/SGOT) 106 U/L (15-37) Alanine Aminotransferase (ALT/SGPT) 93 U/L (10-53) Chloride Level 112 MEQ/L (98-107) Carbon Dioxide Level 15.9 MEQ/L (21.0-32.0) Estimat Glomerular Filtration Rate 41 ML/MIN (>89) B-Type Natriuretic Peptide 1500 PG/ML (0-100) D-Dimer Quantitative (PE/DVT) 4.29 MG/L FEU (0.00-0.50) Test 08/11/17 04:47 Red Blood Count 2.96 MIL/MM3 (4.00-5.30) Hemoglobin 10.1 GM/DL (11.6-15.3) Hematocrit 29.6 % (35.0-46.0) Mean Corpuscular Hemoglobin 34.2 PG (27.0-34.0) Monocytes (%) (Auto) 11.4 % (0.0-8.0) Erythrocyte Sedimentation Rate 34 mm/hr (0-30) Blood Urea Nitrogen 25 MG/DL (7-18) Creatinine 1.25 MG/DL (0.50-1.00) Random Glucose 70 MG/DL (74-106) Albumin 2.9 GM/DL (3.4-5.0) Chloride Level 113 MEQ/L (98-107) Carbon Dioxide Level 17.8 MEQ/L (21.0-32.0) Estimat Glomerular Filtration Rate 41 ML/MIN (>89) PE at Discharge GENERAL: Well-nourished, well-developed patient, limited in ambulation following surgery, pain adequately controlled SKIN: Warm and dry. HEAD: Normocephalic. EYES: No scleral icterus. No injection or drainage. NECK: Supple, trachea midline. No JVD or lymphadenopathy. CARDIOVASCULAR: Regular rate and rhythm without murmurs, gallops, or rubs. RESPIRATORY: Breath sounds equal bilaterally. No accessory muscle use. GASTROINTESTINAL: Abdomen soft, non-tender, nondistended. MUSCULOSKELETAL: No cyanosis, or edema. BACK: Nontender without obvious deformity. No CVA tenderness. EXTREMITIES: Hospital Course //Femoral neck fracture ICD Code: S72.009A - Fracture of unspecified part of neck of unspecified femur , initial encounter for closed fracture Status: Acute = Postop percutaneous pinningon 08/05/2017. ortho cleared for DC to [facility]. Follow -up with Dr. Irwin in 2 weeks. //HTN (hypertension) ICD Code: I10 - Essential (primary) hypertension Status: Chronic Assessment and Plan = 08/10. Blood pressure somewhat elevated. Discontinue IV fluids. Start hydralazine as needed. //Pulmonary hypertension suspected -As seen on echocardiogram. Pulmonology consulted. Can follow at [facility]. -Continue Lasix 20 twice daily, fluid restriction to 1500 mL. Afterload reduction with BP meds as ordered. -She will benefit from continued diuresis, however Lasix may need to be tapered down within the next week to avoid dehydration. //Non-anion gap metabolic acidosis. Expect to improve further with diuresis. //Postherpetic Neuralgia: s/p shingles January2017 Neurontin 300 4 times a day. Recommend avoiding any higher dose due to kidney dysfunction.. //Anxiety/Depression: chronic, stable Continue sertraline //DVT Prophylaxis: Lovenox. Discharge Planning dc to inpatient rehabilitation. Continue diuresis. Follow with pulmonology and cardiology. Follow with Ortho in 2 weeks. Pt Condition on Discharge: Good Discharge Disposition: Rehab Inpatient Discharge Time: > 30 minutes Discharge Instructions DIET: Follow Instructions for: Heart Healthy Diet Fluid Restrictions: 1500ML Activities you can perform: Regular-No Restrictions Other Activity Instructions: Strict monitoring of intake and output. Follow up Referrals: Cardiology - 2 Weeks with Aquiles Loyd MD Orthopedics - [facility] Weeks [facility] with Vasiliy Irwin MD Pulmonology - 2-3 Days with Emigdio Maldonado MD SNF/[facility]/ - Daily New Medications: Calcium Carbonate-Vitamin D (Calcium 600+D 200) 600-200 Mg-Unit Tab 1 TAB PO BID for Nutritional Supplement for 30 Days, #60 TAB 0 Refills Cholecalciferol (Vitamin D3) 2,000 Unit Cap 2000 UNITS PO DAILY for Nutritional Supplement for 30 Days, CAP 0 Refills Ergocalciferol (Ergocalciferol) 50,000 Unit Cap 62828 UNITS PO Q7D for Nutritional Supplement, #6 CAP Furosemide (Furosemide) 20 Mg Tab 20 MG PO BID for pulmonary hypertension, #60 TAB 0 Refills Hydrocodone-Acetaminophen (Hydrocodone-Acetaminophen) 7.5 Mg-325 Mg Tab 1 TAB PO Q4H PRN for PAIN, #60 TAB 0 Refills Walker/Adult/Folding (Walker/Adult/Folding) 1 Mis Mis EA .ROUTE DIRECTED, #1 0 Refills Clopidogrel (Plavix) 75 Mg Tab 75 MG PO DAILY for heart for 30 Days, #30 TAB Fluticasone Nasal [place] (Fluticasone Nasal [place]) 50 Mcg/Act Naspr 1 SPRAY NASAL BID for allergies, #1 BOTTLE 0 Refills 50 mcg/spray Hydralazine HCl (Hydralazine HCl) 50 Mg Tablet 50 MG PO Q8HR for heart for 30 Days, TAB Metoprolol Tartrate (Metoprolol Tartrate) 25 Mg Tab 12.5 MG PO Q12HR for heart for 30 Days, TAB Nifedipine ER 24 HR (Nifedipine ER 24 HR) 30 Mg Tab 30 MG PO DAILY for heart for 30 Days, #30 TAB Saline Nasal ([place] Saline Nasal) 0.65 % [place] 6 DROP EACH NARE UNSCH PRN for nasal congestion, #1 BOTTLE 0 Refills Continued Medications: Gabapentin (Gabapentin) 300 Mg Cap 300 MG PO QID, #90 CAP 0 Refills Sertraline (Sertraline) 50 Mg Tab 50 MG PO DAILY, #30 TAB 0 Refills Discontinued Medications: Losartan (Losartan) 50 Mg Tab 50 MG PO BID for Blood Pressure Management, #30 TAB 0 Refills Nebivolol (Bystolic) 10 Mg Tab 20 MG PO DAILY for Blood Pressure Management, #30 TAB 0 Refills Ike Morrow MD Aug 11, 2017 14:01
[2017-08-11] MEDS ORDERED: FUROSEMIDE 20 MG/2 ML VIAL IV PUSH SCH (18:00)
[2017-08-12] MEDS ORDERED: NIFEdipine 30 MG SUSTAINED RELEASE TAB PO SCH (09:00)
== END 2017-08-11 15:56 | DRG 481 ==
LOC: PHED 18:28 → PHEDA 22:29 → N06B 08-05 00:31 → N03A 08-07 16:21 → HCIS 08-08 18:45
PROVIDERS: ADMIT Hospitalist; ATTEND Hospitalist
PROC: 0QS734Z Reposition Left Upper Femur with Internal Fixation Device, Percutaneous Approach (ICD-10-PCS; principal; 2017-08-05 11:02)
DX: S72.002A Fracture of unspecified part of neck of left femur, initial encounter for closed fracture (principal); E87.2 Acidosis; N17.9 Acute kidney failure, unspecified; I95.9 Hypotension, unspecified; I27.20 Pulmonary hypertension, unspecified; I12.9 Hypertensive chronic kidney disease with stage 1 through stage 4 chronic kidney disease, or unspecified chronic kidney disease; N18.3 Chronic kidney disease, stage 3 (moderate); B02.29 Other postherpetic nervous system involvement; M19.90 Unspecified osteoarthritis, unspecified site; F41.8 Other specified anxiety disorders; H91.91 Unspecified hearing loss, right ear; R42 Dizziness and giddiness; M81.0 Age-related osteoporosis without current pathological fracture; K52.9 Noninfective gastroenteritis and colitis, unspecified; R74.8 Abnormal levels of other serum enzymes; T42.6X5A Adverse effect of other antiepileptic and sedative-hypnotic drugs, initial encounter; Z87.891 Personal history of nicotine dependence
CPT/HCPCS: 71045; 73502; 73560; 76000; 80048; 80053; 80061; 80069; 82306; 83605; 83735; 83880; 84100; 84484; 85025; 85027; 85379; 85610; 85652; 85730; 86038; 86430; 86850; 86900; 86901; 86902; 86920; 86922; 93005; 93306; 93970; 94150; C1713; J0131; J0360; J0690; J1100; J1580; J1644; J1650; J1940; J2370; J2405; J3010; J3370; J7030; J7120

== ENCOUNTER → 2018-01-04 | Outpatient (CLI) | payer MEDICARE ==
[~2018-01-04] MED LIST changes: +AMLO10TA2 PO; +ASPI1TAB57 PO; +ASPI81 PO; +CALCTAB19 PO; +COMMODE 3-IN-11 MIS; +FLUT50SP NASAL; +GABA300C5 PO; +GETGO ROLLING W1 MI1; +HYDR-3583 PO; -LOSA50TA PO; +MULT-65 PO; -NEUR300C PO; +NIFE30TA8 PO; +PLAV75TA29 PO; +VITA2000 PO; +VITA500S3 SL; +WALKER/ADULT/FO1 MIS; +WHEEMIS3
[2018-01-04 12:00] LABS: AUTOMATED NEUTROPHIL # 4.5 TH/MM3 (1.8-7.7); BASOPHIL % 0.5 % (0.0-2.0); EOSINOPHIL # 0.2 TH/MM3 (0-0.4); EOSINOPHIL % 2.7 % (0.0-4.0); HEMATOCRIT 35.1 % (35.0-46.0); HEMOGLOBIN 11.9 GM/DL (11.6-15.3); LYMPHOCYTE # 1.3 TH/MM3 (1.0-4.8); MEAN CORPUSCULAR HEMOGLOBIN 33.2 PG (27.0-34.0); MEAN CORPUSCULAR HGB CONC 33.9 % (32.0-36.0); MONO % 9.4 % (0.0-8.0); MONOCYTE # 0.6 TH/MM3 (0-0.9); NEUT % 67.4 % (16.0-70.0); PLATELET COUNT 258 TH/MM3 (150-450); RED BLOOD COUNT 3.58 MIL/MM3 (4.00-5.30); RED CELL DISTRIBUTION WIDTH 13.6 % (11.6-17.2); WHITE BLOOD COUNT 6.7 TH/MM3 (4.0-11.0)
[2018-01-04 12:12] LABS: INTERNATIONAL NORMALIZED RATIO 1.1 RATIO
[2018-01-04 12:26] LABS: BICARBONATE 24.4 MEQ/L (21.0-32.0); CALCIUM 9.9 MG/DL (8.5-10.1); CREATININE 1.57 MG/DL (0.50-1.00)
--- NOTE | 2018-01-04 12:54 | RADRPT ---
EXAM DATE: 01/04/2018 12:49 PM EDT AGE/SEX: 82 years / Female INDICATIONS: Evaluate for pneumonia, pneumothorax, or any communicable disease. Pre op hip surgery. CLINICAL DATA: This is the patient's initial encounter. Patient reports that signs and symptoms have been present for 1 day and indicates a pain score of 0/10. MEDICAL/SURGICAL HISTORY: None. None. COMPARISON: POI, XR CHEST PA AND LAT, 09/23/2017. . FINDINGS: There is a stable granuloma in the right upper lung. Baseline hyperinflation with mild basilar lung s carring. No evidence of infiltrate or effusion. Cardiomediastinal contours are stable and satisfactor y. There are calcified mediastinal lymph nodes. Thoracic skeleton is grossly intact. CONCLUSION: Stable chest with no acute disease Electronically signed by: Bao Kurtz MD 01/04/2018 12:52 PM EDT
[2018-01-04 13:35] LABS: BILIRUBIN, URINE NEG (NEG); BLOOD, URINE NEG (NEG); GLUCOSE,URINE NEG (NEG); KETONE, URINE NEG (NEG); MUCUS URINE FEW /lpf (OCC); NITRITE,URINE NEG (NEG); PH, URINE 5.5 (5.0-8.5); SQUAMOUS EPITHELIAL CELL URINE <1 /hpf (0-5); URINE COLOR YELLOW (YELLW/STRAW); URINE LEUKOCYTE ESTERASE MOD (NEG)
--- NOTE | 2018-01-05 16:07 | EKG ---
Date Performed: 01/04/2018 Time Performed: 11:48:37 PTAGE: 82 years EKG: SINUS BRADYCARDIA BORDERLINE ECG PREVIOUS TRACING : 08/08/2017 11.38 Since the prior tracing, the previously noted low voltage h as improved. The minimal nonspecific T-wave changes have resolved. The tracing is now within normal l imits. DOCTOR: Yoly Schrader Interpretating Date/Time 01/05/2018 16:06:44
== END ==
LOC: CPRE 11:15
PROVIDERS: ATTEND Orthopaedic Surgery Orthopaedic Trauma
DX: Z01.810 Encounter for preprocedural cardiovascular examination (principal); Z01.812 Encounter for preprocedural laboratory examination; Z01.818 Encounter for other preprocedural examination; M79.609 Pain in unspecified limb; R94.31 Abnormal electrocardiogram [ECG] [EKG]; Z79.01 Long term (current) use of anticoagulants
CPT/HCPCS: 36415; 71046; 80048; 81001; 85025; 85610; 85730; 93005

== ENCOUNTER 2018-01-19 05:24 | Inpatient (IN) | payer MEDICARE ==
[~2018-01-19] VITALS: Ht 165.1 cm; Wt 57.0 kg
[~2018-01-19 05:24] MED LIST changes: -ASPI81 PO; -COMMODE 3-IN-11 MIS; -GETGO ROLLING W1 MI1; -HYDR-3583 PO; -NIFE30TA8 PO; -WHEEMIS3
[2018-01-19] MEDS ORDERED: CHLORHEXIDINE GLUCONATE 2 % 1 PACK (2 CLOTHS) TOPICAL PRN (05:45)
[2018-01-19] MEDS ORDERED: SODIUM CHLORID 0.9% 500 ML IV PRN (05:45)
[2018-01-19] MEDS ORDERED: METOPROLOL TARTRATE 25 MG TAB PO PRN (05:45)
[2018-01-19] MEDS ORDERED: POVIDONE IODINE 5% (ANTISEPSIS KIT) 4 APPLICATIONS EACH NARE PRN (05:45)
[2018-01-19] MEDS ORDERED: LACTATED RINGER'S 1000 ML IV PRN (05:45)
[2018-01-19] MEDS ORDERED: GENTAMICIN SULFATE 80 MG/2 ML VIAL ONE (05:58)
[2018-01-19] MEDS ORDERED: ceFAZolin 2 GM PREMIX 50 ML IV SCH (06:00)
[2018-01-19] MEDS ORDERED: ACETAMINOPHEN 1000 MG/100 ML 100 ML IV ONE (06:00)
[2018-01-19] MEDS ORDERED: TRANEXAMIC ACID INJ 855 MG in SODIUM CHLORIDE 0.9% INJ 100 ML IV SCH (06:00)
[2018-01-19] MEDS ORDERED: GABAPENTIN 300 MG CAP PO ONE (06:00)
[2018-01-19] MEDS ORDERED: BUPIVACAINE-EPI PF 0.25% INJ 20 ML, BUPIVACAINE LIPOSO PF 1.3% INJ 20 ML in SODIUM CHLO... P-ARTICULR SCH (06:00)
[2018-01-19] MEDS ORDERED: ONDANSETRON ODT 4 MG TAB PO SCH (06:00)
[2018-01-19] MEDS ORDERED: CELECOXIB 200 MG CAP PO ONE (06:00)
[2018-01-19] MEDS ORDERED: VANCOMYCIN 1 GM/200 ML PREMIX IV SCH (06:00)
[2018-01-19] MEDS ORDERED: CHLORHEXIDINE GLUCONATE 4% SOLN 120 ML BTL TOPICAL SCH (06:00)
[2018-01-19] MEDS ORDERED: DEXAMETHASONE SOD PHOS 20 MG/5 ML VIAL IV PUSH SCH (06:00)
[2018-01-19] MEDS ORDERED: FAMOTIDINE 20 MG/2 ML VIAL IV PUSH ONE (06:00)
[2018-01-19] MEDS ORDERED: ASPI1TAB57 PO (07:22)
[2018-01-19] MEDS ORDERED: HYDR-3583 PO (07:22)
[2018-01-19] MEDS ORDERED: WALKER/ADULT/FO1 MIS (07:22)
--- NOTE | 2018-01-19 07:23 | HHI.FF ---
Face to Face Verification Diagnosis: (1) S/P total hip arthroplasty Physical Therapy Gait training Hip: Total hip, Protocol: Left, Posterior hip precautions Left LE Weight Bearing: WB as tolerated Nursing Dressing Changes: Do not change dressing (x 6 days), Daily dressing change ( beginning on POD 7 with primapore) I have seen patient Yeimy Singleton on 01/19/18. My clinical findings support the need for the requested home health care services because: Ltd mobility - disease progression I certify that my clinical findings support that this patient is homebound because: Post-op weakness Victoriano Cheung/Airbrush Artist PA Jan 19, 2018 07:23
[2018-01-19] MEDS ORDERED: VANCOMYCIN HCL 1000 MG VIAL ONE (07:30)
[2018-01-19] MEDS ORDERED: Post-op Orders (for Pharmacy) XX ONE (08:15)
[2018-01-19] MEDS ORDERED: ERGOCALCIFEROL (VIT D2) 50,000 UNIT CAP PO ONE (08:15)
[2018-01-19] MEDS ORDERED: MORPHINE SULFATE 4 MG/ML INJ IV PUSH PRN (08:15)
[2018-01-19] MEDS ORDERED: ACETAMINOPHEN/HYDROcodone 325 MG/10 MG TAB PO PRN (08:15)
--- NOTE | 2018-01-19 08:16 | PD.OP ---
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 My P.A. presence was necessary throughout this case for the manipulation and positioning of the surgical extremity. My P.A. was assisting me throughout the duration of this procedure. The skill set of a physician public health assistant was medically necessary to complete this procedure. During the surgical case the certified surgical assistant was working at the back table and the physician public health assistant was directly assisting me. Operation and Findings: PLAN OF ACTIVITY Weight bear as tolerated. IMPLANTS USED DePuy Galax size 7 standard stem with size [46] bicentric cup and [+1] neck. DETAILS OF PROCEDURE This patient was brought into the operating room and placed on the OR table. The patient was given anesthesia. The patient received IV antibiotics. The patient was then placed in lateral decubitus position. The hip and leg were prepped with alcohol, followed by Hibiclens and draped in a usual sterile fashion. Clean air was used for this procedure. Time out procedure was performed. The procedure began with a 5 inch incision over the posterolateral hip. The subcutaneous tissue was dissected with the Bovie. The iliotibial band were split in line with fibers. The Charnley retractor was placed. The piriformis and external rotators were released from the femur and tagged with a #1 Vicryl suture. The capsule is now incised and tagged with #1 Vicryl. At this point attention was turned towards removal of hardware. These 3 screw heads were identified along the lateral femoral cortex. Using appropriate screwdrivers each of the screws were removed. At this point the hip was now dislocated. The femoral neck and head were now visualized. Soft tissue was now protected. The hip skid was placed underneath the femoral neck. An oscillating saw was used to make a femoral neck cut. The femoral head was sized and measured. At this point the acetabulum was prepared. The labrum was excised. The acetabulum was gently reamed up to size 46. A 46 trial bicentric cup was now placed into the acetabulum. This was found to be appropriate fit. Next, attention was turned to preparation of the proximal femur. A box osteotome was used to remove the lateral cortex of the femoral neck. The T-handle reamer was used to open the femoral canal. Next, the canal was broached. A lateralizing reamer was used to help lateralize the prosthesis. At this point a trial head and neck were placed. The hip was reduced. The patient was found to have excellent stability with good range of motion. Trial components were removed. Soft tissue and bone were thoroughly irrigated. A Galax stem was now opened. The stem was now impacted into the proximal femur. Care was taken to keep appropriate anteversion. The head and neck were now impacted onto the stem. The hip was again reduced. The hip was found to have good range of motion and good stability. Leg lengths were clinically equal. The wound was thoroughly irrigated. The capsule, piriformis and iliotibial band were closed with #1 Vicryl. Subcutaneous tissue was closed with 3-0 Vicryl. The skin was closed with kwasi. A sterile dressing was applied with Primapore. The patient was placed into a knee immobilizer. The patient was awakened and transferred to the recovery room in stable condition. Needle and sponge counts were correct. Vasiliy Weinberg MD Jan 19, 2018 08:16
[2018-01-19] MEDS ORDERED: DO NOT ADM ANY ANTICOAGULANT DRUGS PRN (08:34)
[2018-01-19] MEDS ORDERED: SUGAMMADEX SODIUM 200 MG/2 ML VIAL IV PUSH ONE (08:41)
--- NOTE | 2018-01-19 10:34 | RADRPT ---
EXAM DATE: 01/19/2018 10:27 AM EDT AGE/SEX: 82 years / Female INDICATIONS: Post op left hip. CLINICAL DATA: This is the patient's initial encounter. Patient reports that signs and symptoms have been present for 1 day and indicates a pain score of Nonresponsive. MEDICAL/SURGICAL HISTORY: None. . Prior left hip pinning. COMPARISON: [facility] [place] HIP LEFT (AP&LAT 2/3VWS) W AP PELVIS, 08/17/2017. . FINDINGS: Status post placement of a left hip prosthesis. The bony structures are intact. No joint dislocation. Good position and alignment on this postoperative exam. Postsurgical changes are noted in the soft t issues. CONCLUSION: Good position and alignment on this postoperative study. Electronically signed by: Martinez Thompson MD 01/19/2018 10:33 AM EDT
[2018-01-19] MEDS ORDERED: ePHEDrine/NS 25 MG/5 ML SYRINGE IV ONE (12:00)
[2018-01-19] MEDS ORDERED: LIDOCAINE HCL 1% PF 5 ML SYRINGE OTHER ONE (12:00)
[2018-01-19] MEDS ORDERED: GLYCOPYRROLATE 1 MG/5 ML SYRINGE IV PUSH ONE (12:00)
[2018-01-19] MEDS ORDERED: NORMOSOL R INJ 1,000 ML IV ONE (12:00)
[2018-01-19] MEDS ORDERED: NEOSTIGMINE 5 MG/5 ML SYRINGE IV PUSH ONE (12:00)
[2018-01-19] MEDS ORDERED: PROPOFOL 200 MG/20 ML AMP IV ONE (12:00)
[2018-01-19] MEDS ORDERED: ROCURONIUM INJ 50 MG/5 ML SYRINGE IV PUSH ONE (12:00)
[2018-01-19 13:00] VITALS: BP 117/56; PULSE 63; RESP 17; TEMP 98; O2SAT 93
[2018-01-19] MEDS: GABAPENTIN 300 MG CAP PO SCH ×2 (13:00→18:00)
[2018-01-19] MEDS: ceFAZolin 2 GM PREMIX 50 ML IV SCH ×2 (13:42→18:19)
[2018-01-19 16:00] VITALS: BP 125/61; PULSE 64; RESP 17; TEMP 97.3
[2018-01-19 19:15] VITALS: BP 130/56; PULSE 70; RESP 18; TEMP 98; O2SAT 97
[2018-01-19] MEDS: FLUTICASONE PROPIONATE 50 MCG/ACT 16 GM NASAL SPRAY NASAL SCH (21:00)
[2018-01-20] VITALS (8 sets, daily range): BP systolic 100–150; BP diastolic 49–71; PULSE 64–83; RESP 17–18; TEMP 97.9–98.8; O2SAT 92–97
[2018-01-20] MEDS: ceFAZolin 2 GM PREMIX 50 ML IV SCH (00:08)
[2018-01-20] MEDS: ACETAMINOPHEN/HYDROcodone 325 MG/7.5 MG TAB PO PRN ×3 (00:09→16:53)
--- NOTE | 2018-01-20 06:30 | PD.ORT.PN ---
Subjective Subjective Remarks Doing well POD 1 removal of hardware and left hip hemiarthroplasty Objective Vitals Vital Signs Date Time Temp Pulse Resp B/P (MAP) Pulse Ox O2 Delivery O2 Flow Rate FiO2 01/20/18 00:00 98.1 66 18 150/67 (94) 96 01/19/18 19:15 98.0 70 18 130/56 (80) 97 01/19/18 16:00 97.3 64 17 125/61 (82) 01/19/18 13:00 98.0 63 17 117/56 (76) 93 01/19/18 12:35 97.7 66 15 108/53 (71) 99 Room Air 01/19/18 12:00 63 15 113/56 (75) 99 Room Air 01/19/18 11:30 65 17 104/51 (68) 99 Room Air 01/19/18 11:00 78 17 117/54 (75) 99 Room Air 01/19/18 10:30 65 15 109/54 (72) 99 Room Air 01/19/18 10:00 65 16 98/49 (65) 98 Room Air 01/19/18 09:30 62 15 123/60 (81) 98 Nasal Cannula 3 01/19/18 09:15 65 15 145/66 (92) 98 Nasal Cannula 3 01/19/18 09:00 90 14 145/66 (92) 100 Nasal Cannula 3 01/19/18 08:45 90 14 150/66 (94) 100 Nasal Cannula 3 01/19/18 08:41 96.7 93 8 179/86 (117) 97 Ambu Bag 15 Simple Mask I/O 01/19/18 01/19/18 01/19/18 01/20/18 01/20/18 01/20/18 07:00 15:00 23:00 07:00 15:00 23:00 Intake Total 2640 ml 360 ml Output Total 700 ml Balance 1940 ml 360 ml Intake Oral 640 ml 360 ml IV Total 1000 ml Other 1000 ml Output Urine Total 400 ml Estimated Blood Loss 300 ml # Voids 2 Imaging Last 24 hours Impressions Hip and Pelvis X-Ray 01/19/18 0808 Signed Impressions: CONCLUSION: Good position and alignment on this postoperative study. Objective Remarks Left lower extremity: Clean dry dressings intact. Mild tenderness with range of motion of hip. Distally intact sensation with good capillary refills. Active dorsiflexion plantar flexion foot Assessment & Plan Assessment and Plan Removal of hardware and left hip hemiarthroplasty with acetabular reaming POD 1 Physical therapy: Weightbearing as tolerated with posterior hip precautions Dressing remains for 6 days then discontinue dressing and begin Primapore taking care to maintain surgical tape over incision Lovenox Case management for home health care Plan for discharge tomorrow Follow-up with Dr. Irwin or [place] in 2 weeks Yunier Sorto Jr. Jan 20, 2018 06:30
[2018-01-20 07:26] LABS: HEMATOCRIT 26.1 % (35.0-46.0); HEMOGLOBIN 8.8 GM/DL (11.6-15.3)
[2018-01-20] MEDS: CHOLECALCIFEROL (VIT D3) 5000 UNIT CAP PO SCH ×2 (08:24→09:00)
[2018-01-20] MEDS: NEBIVOLOL 10 MG TAB PO SCH ×2 (08:24→09:00)
[2018-01-20] MEDS: GABAPENTIN 300 MG CAP PO SCH ×3 (08:24→16:53)
[2018-01-20] MEDS: SERTRALINE HCL 50 MG TAB PO SCH ×2 (08:24→09:00)
[2018-01-20] MEDS: ENOXAPARIN SODIUM 30 MG/0.3 ML SYRINGE SQ SCH (08:25)
[2018-01-20] MEDS: FLUTICASONE PROPIONATE 50 MCG/ACT 16 GM NASAL SPRAY NASAL SCH ×2 (09:00→21:00)
[2018-01-21] MEDS: ACETAMINOPHEN/HYDROcodone 325 MG/7.5 MG TAB PO PRN (03:02)
--- NOTE | 2018-01-21 06:22 | PD.ORT.PN ---
Subjective Subjective Remarks Doing well POD 2 removal of hardware and left hip hemiarthroplasty Objective Vitals Vital Signs Date Time Temp Pulse Resp B/P (MAP) Pulse Ox O2 Delivery O2 Flow Rate FiO2 01/20/18 23:54 98.7 65 17 120/71 (87) 92 01/20/18 20:56 98.1 68 18 127/58 (81) 97 01/20/18 16:00 97.9 64 17 140/66 (90) 94 01/20/18 12:00 98.5 71 17 100/49 (66) 95 01/20/18 11:30 18 01/20/18 08:00 98.8 83 17 135/62 (86) 93 I/O 01/20/18 01/20/18 01/20/18 01/21/18 01/21/18 01/21/18 07:00 15:00 23:00 07:00 15:00 23:00 Intake Total 460 ml 560 ml 360 ml Balance 460 ml 560 ml 360 ml Intake Oral 460 ml 560 ml 360 ml # Voids 5 1 1 # Bowel Movements 0 0 Result Diagram: 01/20/18 0527 Imaging Last 24 hours Impressions Hip and Pelvis X-Ray 01/19/18 0808 Signed Impressions: CONCLUSION: Good position and alignment on this postoperative study. Objective Remarks Left lower extremity: Clean dry dressings intact. Mild tenderness with range of motion of hip. Distally intact sensation with good capillary refills. Active dorsiflexion plantar flexion foot Assessment & Plan Assessment and Plan Removal of hardware and left hip hemiarthroplasty with acetabular reaming POD 2 Physical therapy: Weightbearing as tolerated with posterior hip precautions Dressing remains for 6 days then discontinue dressing and begin Prim[place] taking care to maintain surgical tape over incision Lovenox Case management for home health care Plan for discharge today Follow-up with Dr. Irwin or [place] in 2 weeks Yunier Sorto Jr. Jan 21, 2018 06:22
[2018-01-21 08:00] VITALS: BP 132/60; PULSE 71; RESP 16; TEMP 98.2; O2SAT 91
[2018-01-21] MEDS: ENOXAPARIN SODIUM 30 MG/0.3 ML SYRINGE SQ SCH (08:00)
[2018-01-21] MEDS: CHOLECALCIFEROL (VIT D3) 5000 UNIT CAP PO SCH (08:33)
[2018-01-21] MEDS: SERTRALINE HCL 50 MG TAB PO SCH (08:33)
[2018-01-21] MEDS: NEBIVOLOL 10 MG TAB PO SCH (08:33)
[2018-01-21] MEDS: GABAPENTIN 300 MG CAP PO SCH (08:33)
[2018-01-21] MEDS: FLUTICASONE PROPIONATE 50 MCG/ACT 16 GM NASAL SPRAY NASAL SCH (08:35)
== END 2018-01-21 12:19 | disposition home health service (06) | DRG 470 ==
LOC: HSDI 05:24 → N06A 12:48
PROVIDERS: ADMIT Orthopaedic Surgery Orthopaedic Trauma; ATTEND Orthopaedic Surgery Orthopaedic Trauma
PROC: 0QP704Z Removal of Internal Fixation Device from Left Upper Femur, Open Approach (ICD-10-PCS; 2018-01-19)
PROC: 0SRB0JZ Replacement of Left Hip Joint with Synthetic Substitute, Open Approach (ICD-10-PCS; principal; 2018-01-19 06:47)
DX: S72.002K Fracture of unspecified part of neck of left femur, subsequent encounter for closed fracture with nonunion (principal); I12.9 Hypertensive chronic kidney disease with stage 1 through stage 4 chronic kidney disease, or unspecified chronic kidney disease; I25.2 Old myocardial infarction; N18.9 Chronic kidney disease, unspecified; F41.9 Anxiety disorder, unspecified; F32.9 Major depressive disorder, single episode, unspecified; Z88.8 Allergy status to other drugs, medicaments and biological substances; Z79.02 Long term (current) use of antithrombotics/antiplatelets; Z79.82 Long term (current) use of aspirin
CPT/HCPCS: 73502; 85014; 85018; 86850; 86900; 86901; 86920; C1776; C9290; J0131; J0690; J1100; J1580; J1650; J2710; J3010; J3370; J7120; L1830